=== PATIENT | female | born 1935 | race Caucasian/White ===

== ENCOUNTER 2018-01-01 14:02 | Inpatient (IN) | payer MEDICARE ==
[2018-01-01 15:57] LABS: #Lymphocytes 0.4 thou/uL (1.20-3.40); #Monocytes 0.4 thou/uL (0.11-0.59); #Neutrophils 4.5 thou/uL (1.40-6.50); %Basophils 0.4 % (0.0-1.0); %Eosinophils 0.8 % (0.0-10.0); %Lymphocytes 7.4 % (21.0-51.0); %Monocytes 7.3 % (0.0-10.0); %Neutrophils 84.1 % (42.0-75.0); Hemoglobin 11.3 g/dL (12.0-16.0); Mean Corpuscular HGB CONC 32.4 g/dL (32.0-36.0); Mean Corpuscular Volume 83.2 fL (78.0-98.0); Mean Platelet Volume 8.6 fL (7.4-10.4); Platelet Count 157 thou/uL (130-400); RBC Distribution Width 14.8 % (11.5-14.5); Red Blood Cell (RBC) Count 4.21 mill/uL (4.20-5.40); White Blood Cell (WBC) Count 5.4 thou/uL (4.8-10.8)
[2018-01-01 16:20] LABS: ALT (SGPT) 9 U/L (8-55); AST (SGOT) 16 U/L (5-34); Albumin 3.5 g/dL (3.4-4.8); Alkaline Phosphatase 79 U/L (40-150); Anion Gap 13 mmol/L (10-20); BUN (Urea Nitrogen) 11 mg/dL (9.8-20.1); Bilirubin, Total 1.1 mg/dL (0.2-1.2); CK (CPK) 66 U/L (29-168); Calc. Creatinine Clearance 0 mL/min (70-130); Calcium 8.7 mg/dL (7.8-10.44); Carbon Dioxide 29 mmol/L (23-31); Chloride 103 mmol/L (98-107); Estimated GFR-MDRD 68; Globulin 1.9 g/dL (2.4-3.5); Glucose 122 mg/dL (83-110); Potassium 3.8 mmol/L (3.5-5.1); Protein, Total 5.4 g/dL (6.0-8.3); Sodium 141 mmol/L (136-145)
[2018-01-01 16:22] LABS: CKMB 1.7 ng/mL (0-6.6); Troponin I Less than 0.010 ng/mL (< 0.028)
--- NOTE | 2018-01-01 17:05 | RAD ---
TWO VIEWS RIGHT HIP: Date: 01-01-18 History: Fell while walking to front door. Right hip injury. Shortening of leg. FINDINGS: There is a comminuted intertrochanteric right hip fracture with separation and mild displacement of t he fracture fragments. There is varis angulation of the fracture fragments. There is no dislocation. Osteopenia is present. IMPRESSION: Comminuted angulated mildly displaced intertrochanteric right hip fracture. POS: [facility]
--- NOTE | 2018-01-01 17:07 | RAD ---
PORTABLE AP CHEST RADIOGRAPH: Date: 01-01-18 History: Pre-operative evaluation. Comparison: 07-28-16 FINDINGS: Again noted is severe elevation of the left hemidiaphragm; although, there is a better depth of inspi ration on today's exam. There is atelectasis at the left lung base. Due to the prominent elevated hem idiaphragm, the mediastinal structures are shifted to the right. There are mild chronic lung changes; the right lung is otherwise clear. Pulmonary vasculature is within normal limits. Osteopenia is pres ent. IMPRESSION: 1. Stable marked elevation of the left hemidiaphragm. 2. No acute cardiopulmonary process. POS: [facility]
[2018-01-01] MEDS ORDERED: Fentanyl 100 MCG/2 ML VIAL ONE (18:16)
[2018-01-01] MEDS ORDERED: Ondansetron HCl/PF 4 MG/2 ML Vial ONE (18:19)
--- NOTE | 2018-01-01 18:59 | RAD ---
RIGHT FEMUR TWO VIEWS: History: Fall. FINDINGS: There is an intertrochanteric fracture of the right hip with coxavara deformity. The bones appear dem ineralized. There are arthritic changes of the knee. IMPRESSION: Intertrochanteric fracture of the right hip. POS: [facility]
[2018-01-01 19:10] LABS: Bilirubin Negative (Negative); Blood, Urine Negative (Negative); Clarity CLEAR (Clear); Glucose, Urine (Dipstick) Negative (Negative); Leukocyte Negative (Negative); Nitrite Negative (Negative); Protein, Urine (Dipstick) Negative (Neg-Trace); Specific Gravity, Urine 1.014 (1.002-1.036)
[2018-01-01] MEDS ORDERED: Dextrose 5% in Water 1,000 ML IV PRN (20:43)
[2018-01-01] MEDS ORDERED: Dextrose 50% Abboject 50 ML SYRINGE SLOW IVP PRN (20:43)
[2018-01-01] MEDS ORDERED: traMADol HCl 50 MG TAB PO PRN (22:18)
[2018-01-01] MEDS: traMADol HCl 50 MG TAB PO SCH (22:27)
[2018-01-01] MEDS: Famotidine/PF 20 mg/2ml Vial SLOW IVP SCH (23:14)
[2018-01-01 23:39] VITALS: BMI 32.5
--- NOTE | 2018-01-02 00:10 | HP ---
DATE OF ADMISSION: 01/01/2018 ADMITITNG PHYSICIAN: Oskar Roberto MD CONSULTING PHYSICIAN: 1. Dr. Jose Arias, Orthopedics. 2. Dr. Reyes, Pulmonology. 3. Dr. Barrera, Cardiology. HISTORY OF PRESENT ILLNESS: Ms. Grey is an 82-year-old female with a history of CHF, COPD, chronic hypoxic respiratory failure, hypertension, and chronic bilateral lower extremity edema, who is a pat ient of Dr. Ferrell and Dr. Suero. She was walking to the front door in her house today when her right leg felt weak and she fell onto her right hip. She was transported to [facility] where a right hip intertrochanteric fracture was identified. Dr. Arias was consulted by [facility] ER physician. She denies LOC. She denies any other area of pain. She reports that pain is exacer bated by movement of right leg. She has 2+ pitting edema to her lower extremities. She reports that right lower extremity is always more edematous than left. PAST MEDICAL HISTORY: 1. Congestive heart failure. 2. Chronic obstructive pulmonary disease. 3. Chronic bilateral lower extremity edema. 4. Hypertension. 5. Chronic hypoxic respiratory failure. 6. Pneumonia in 2017. PAST SURGICAL HISTORY: 1. Appendectomy. 2. Cholecystectomy. 3. Hysterectomy. CURRENT MEDICATIONS: 1. Lasix 40 mg daily. 2. Aspirin 81 mg daily. ALLERGIES: FELDENE. LABORATORY STUDIES: CBC: WBC 5.4, RBC 4.31, hemoglobin 11.3, hematocrit 35.0, platelets 157,000. C hemistry: Sodium 141, potassium 3.8, chloride 103, carbon dioxide 29, BUN 11, creatinine 0.80, gluco se 122, calcium 8.7, total bilirubin 1.1, AST 16, ALT 9, alkaline phosphatase 79. Creatine kinase 66 . BNP 315. CK-MB 1.7, troponin less than 0.010. REVIEW OF SYSTEMS: Constitutional: The patient denies fever, chills, recent weight loss, or general ized malaise. HEENT: Denies otorrhea, rhinorrhea, neck pain, or sore throat. Cardiovascular: Dylan es chest pain, syncope, or palpitations. Respiratory/Chest: Denies cough. 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 Reports history of COPD, is a long-term patient of Dr. Suero. Reports use of 2 liters O2 at night. Abdomen: Denies abdominal pain, nausea, vomiting, diarrhea, or constipation. Musculoskeletal: Reports fall. Reports right hip pain. Neurologic: Reports occasional dizziness . Denies focal deficit. Denies seizures. Genitourinary: Denies hematuria or dysuria. Hemo/Lympha tics: Reports taking 81 mg aspirin daily. Denies abnormal bleeding. PHYSICAL EXAMINATION: VITAL SIGNS: Blood pressure 119/59, pulse 55, respirations 21, temperature 98.1, O2 sat 95% on 2 lit ers O2. CONSTITUTIONAL: Elderly female lying in bed, in no acute distress, nontoxic appearing. HEENT: Atraumatic, normocephalic. CARDIOVASCULAR: Regular rate and rhythm. Heart sounds normal. PULMONARY: Bilateral breath sounds clear. No respiratory distress. ABDOMEN: Soft, nontender, nondistended. Pelvis pain with palpation of right hip, right upper thigh. MUSCULOSKELETAL: Cap refill brisk in all extremities. Neurovascular intact in all extremities. SKIN: Warm and dry, normal in color, no rashes noted. ASSESSMENT: 1. Status post ground-level fall. 2. Right intertrochanteric hip fracture. 3. Acute traumatic pain. 4. History of chronic obstructive pulmonary disease and chronic respiratory failure. 5. History of congestive heart failure. PLAN: 1. Admit to surgical floor by [facility]. 2. Consult to Dr. Arias, Orthopedics. 3. Consult Cardiology and Pulmonology as patient's primary providers. 4. Echo ordered by Dr. Arias. Echo was completed at this time. Results are pending. 5. Regular diet, n.p.o. after midnight. 6. IV fluids after midnight. 7. Oral analgesia with IV analgesia for breakthrough pain. 8. Resume home medications as appropriate. 9. PT, OT postoperatively with orthopedic limitations. 10. Case management for discharge planning. Anticipate patient will need inpatient rehabilitation. 11. Pepcid for gastritis prophylaxis. 12. SCDs for DVT prophylaxis. The patient was reviewed with Dr. Roberto who agrees with plan.
[2018-01-02] MEDS: Acetaminophen 500 MG TAB PO SCH ×5 (00:43→22:54)
[2018-01-02] MEDS: Scopolamine 1.5 mg/72 hour Patch TOP SCH (00:43)
--- NOTE | 2018-01-02 01:07 | CON ---
DATE OF CONSULTATION: 01/01/2018 HISTORY OF PRESENT ILLNESS: Ms. Grey is a pleasant 82-year-old female status post fall from a stand today. The patient is complaining of right hip pain, was brought by EMS for evaluation of right hip pain. Pain is currently 8/10. History of a left hip fracture treated nonoperatively. PAST MEDICAL HISTORY: Heart failure, systolic and/or diastolic, COPD with respiratory failure, hypertension, history of phlebitis, and possible DVT 35 years ago. PAST SURGICAL HISTORY: Appendectomy, cholecystectomy, hysterectomy, left hip fracture treated non-operatively. MEDICATIONS: States Lasix 40 mg, aspirin 81 mg. ALLERGIES: FELDENE. SOCIAL HISTORY: The patient lives in [place] farm with her , daughter is Meri Romo, OR nurse. Denies tobacco, alcohol, or drug use. PHYSICAL EXAMINATION: VITAL SIGNS: 119/59, 55, 21 respiratory rate, 95% on 2 liters. GENERAL: Elderly female in no acute distress. EXTREMITIES: Right lower extremity, she has severe edema in the right lower extremity with a palpable 1+ pulse, DP, and PT. The patient has motor intact. She is able to flex and extend her toes, flex and extend her ankle. She has pain with internal and external rotation of her right hip. The patient H&H of 11 and 35, platelets 157. Creatinine 0.08, glucose 122. The patient's radiographs of her right hip show right 3-part intertrochanteric right hip fracture with diffuse osteopenia. IMPRESSION: 1. Right intra-articular hip fracture. 2. History of congestive heart murmur. 3. Pedal edema. 4. History of phlebitis, possible deep venous thrombosis. 5. Chronic obstructive pulmonary disease with respiratory failure. ASSESSMENT AND PLAN: The patient will be made n.p.o. 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 The patient received a cephalomedullary nail from her long nail to protect both her neck as well as her shaft given her diffuse osteopenia. I discussed with the family the risks and benefits of the surgery to include pain, scar, bleeding, infection, damage to vital structures, decreased range of motion or strength, continued pain despite surgical intervention, loss of life or limb. The patient understood these risks and benefits of the surgery. We will await pulmonology and Cardiology recommendations. The patient will be admitted to trauma. We will follow her in-house. Plan will be for surgery tomorrow at noon. AMAURY
[2018-01-02] MEDS: Sodium Chloride 0.9% 1,000 ML IV SCH ×3 (01:28→20:43)
[2018-01-02 04:22] LABS: #Basophils 0.1 thou/uL (0.0-0.2); #Lymphocytes 0.4 thou/uL (1.20-3.40); #Monocytes 0.6 thou/uL (0.11-0.59); #Neutrophils 5.2 thou/uL (1.40-6.50); %Eosinophils 0.1 % (0.0-10.0); %Lymphocytes 7.1 % (21.0-51.0); %Monocytes 8.9 % (0.0-10.0); %Neutrophils 82.9 % (42.0-75.0); Hemoglobin 10.3 g/dL (12.0-16.0); Mean Corpuscular HGB CONC 32.7 g/dL (32.0-36.0); Mean Corpuscular Hemoglobin 27.2 pg (27.0-31.0); Mean Corpuscular Volume 83.1 fL (78.0-98.0); Mean Platelet Volume 8.2 fL (7.4-10.4); Platelet Count 129 thou/uL (130-400); RBC Distribution Width 14.5 % (11.5-14.5); White Blood Cell (WBC) Count 6.2 thou/uL (4.8-10.8)
[2018-01-02 04:32] LABS: Anion Gap 10 mmol/L (10-20); BUN (Urea Nitrogen) 13 mg/dL (9.8-20.1); Calc. Creatinine Clearance 92 mL/min (70-130); Calcium 8.7 mg/dL (7.8-10.44); Carbon Dioxide 31 mmol/L (23-31); Chloride 104 mmol/L (98-107); Estimated GFR-MDRD 80; Glucose 142 mg/dL (83-110); Magnesium 2.1 mg/dL (1.6-2.6); Phosphorus 3.7 mg/dL (2.3-4.7); Potassium 3.9 mmol/L (3.5-5.1); Sodium 141 mmol/L (136-145)
[2018-01-02] MEDS: traMADol HCl 50 MG TAB PO SCH ×4 (06:02→22:55)
[2018-01-02] MEDS ORDERED: Prevnar 13-Val Conj/PF 0.5 ML SYRINGE IM ONE (09:00)
--- NOTE | 2018-01-02 10:20 | ULT ---
BILATERAL LOWER EXTREMITY VENOUS DUPLEX ULTRASOUND INCLUDING COLOR AND SPECTRAL DOPPLER IMAGING: History: 82-year-old female with history of bilateral lower extremity edema, congestive heart failure, FINDINGS: Exam performed from groin to ankle including visualized greater saphenous, common femoral, superficia l femoral, profunda femoral, popliteal, trifurcation and posterior tibial vein regions. There is phasic flow at all levels with normal compressibility and normal augmentation. No intralumin al thrombus. There is a complex fluid collection in the left popliteal fossa region measuring approxi mately 1.2 x 3.4 x 5 cm, evidence for a somewhat complicated popliteal fossa cyst. No intraluminal th rombus. IMPRESSION: No evidence for DVT. Left popliteal fossa has a somewhat complicated appearing cyst. POS: [facility]
[2018-01-02] MEDS: Famotidine/PF 20 mg/2ml Vial SLOW IVP SCH (10:42)
[2018-01-02] MEDS ORDERED: Bupivacaine 0.75% W/DEXTROSE 8.25% 2 ML AMP ONE (10:58)
[2018-01-02] MEDS ORDERED: Ketamine 50 MG/ML VIAL ONE (10:59)
[2018-01-02] MEDS ORDERED: CEFAZOLIN/Water 2 GM/20 ML SYRINGE ONE (11:19)
--- NOTE | 2018-01-02 12:11 | PRG ---
DATE OF SERVICE: 01/02/2018 SUBJECTIVE: Ms. Grey is an 82-year-old woman who normally ambulates using rolling walker. Apparently, the walker got away from her yesterday causing her to fall. She has sustained a closed right hip fracture, which requires repair. Upon questioning, the patient is quite active at home. She usually ambulates well, although ability to climb stairs has been limited now due to arthritic knee disease. She denies any dyspnea with ambulation. She is fairly active with house chores without any dyspnea. OBJECTIVE: VITAL SIGNS: This morning includes blood pressure 154/80, pulse is 60, respiratory rate 16, temperature 98.2 degrees Fahrenheit and current oxygen saturation is 95% on 2 liters by nasal cannula oxygen. HEENT: Reveals pupils equal, round, reactive to light and accommodation. HEART: Reveals regular rate and rhythm. No murmurs or gallops auscultated. CHEST: Clear to auscultation bilaterally. Her breathing is regular and unlabored. ABDOMEN: Soft, nontender and nondistended. EXTREMITIES: There are 2+ radial and pedal pulses bilaterally. She has no ankle edema present. NEUROLOGIC: Reveals no focal deficits present. LABORATORY DATA: Today includes a CBC with 6200 white blood cells, hemoglobin and hematocrit are 10.3 and 31.6 respectively. Platelet count is 129,000. Metabolic profile: Sodium 141, potassium is 3.9, chloride is 104, bicarbonate is 31, BUN is 13, creatinine 0.70, glucose is 142, magnesium 2.1, phosphorus is 3.7. IMPRESSION: Status post ground level fall with closed right hip fracture. PLAN: The patient is hemodynamically stable to proceed with orthopedic surgery for surgical repair of the right hip fracture. Postoperatively, we will initiate physical and occupational therapy. Case workers will initiate plans for possible transfer to inpatient rehabilitation versus swing bed post-discharge. The above findings and plan discussed with the patient and family at bedside. They all indicated understanding of information given. I have answered their questions. AMAURY
[2018-01-02] MEDS ORDERED: Promethazine HCl 25 MG/ML VIAL IM PRN (13:23)
[2018-01-02] MEDS ORDERED: Promethazine HCl 25 MG/ML VIAL SLOW IVP PRN (13:23)
[2018-01-02] MEDS ORDERED: Ondansetron HCl/PF 4 MG/2 ML Vial IVP PRN (13:23)
--- NOTE | 2018-01-02 14:17 | OP ---
DATE OF PROCEDURE: 01/02/2018 PREOPERATIVE DIAGNOSIS: Right 3-part intertrochanteric hip fracture. POSTOPERATIVE DIAGNOSIS: Right 3-part intertrochanteric hip fracture. PROCEDURE PERFORMED: Right intramedullary nailing with a long TFNA. STAFF: Jose Arias M.D. COLOR GRINDER: MERRILL Woodall ANESTHESIA: Mylene and Sree. The patient received a fascia iliac block with spinal. ESTIMATED BLOOD LOSS: 100 mL. TOURNIQUET TIME: None. IMPLANTS: A 14 mm x 440 mm titanium cannulated TFNA, a 110 TFNA screw, and a 5 mm locking screw. ANTIBIOTICS: Ancef 2 grams. COMPLICATIONS: None. HISTORY OF PRESENT ILLNESS: She Que is a pleasant 82-year-old female who presents with congestive heart failure, pulmonary obstructive disease, osteopenia, who had a fall and a right hip fracture. I discussed with the patient the risks and benefits of a right hip intramedullary nailing for cephalo medullary nail for her right intertrochanteric hip fracture. I discussed risks and benefits of surge ry to include pain, scar, bleeding, infection, damage to vital structures, decreased range of motion or strength, nonunion, malunion, loss of life or limb. The patient understood the risks and benefits and elected to proceed. I discussed with the family and the patient the mortality associated the fr acture. I also discussed with the patient would lose a level of function from the house and may need to be transfers only. The patient understood these risks and benefits and would like to proceed PROCEDURE IN DETAIL: Timeout was performed designating the patient's right lower extremity as the o perative site based on sites, consents and markings. After completion of timeout the patient was zoran richy in a fracture table with the bony prominences well padded. She had a little bit of kick up of he r neck at the calcar connected to the head, so I had to place a small stab incision into the anterior aspect to place a fixator to help with compression of that as well as taking up the leg. I took my incision laterally, down to skin through the IT band down, placed my starting point, opened the canal , 16 was followed up and I knew a 14 would be the right size for the nail. There was no reaming requ ired. Measured a 44 mm nail. We passed the nail with reduction of the fracture as best we could. A fter completion of this, we then placed our lateral incision down. We placed our compression screw. We drilled with holding the nail in appropriate position. Findings center position we liked. We dr erickson for a 110 mm compression screw, placed a 10 mm compression screw. We had good overall alignmen t, let off of the traction and ensure compression of the fracture. We then locked the gate down and did 1-1/2 turn to help with compression. We then moved to the patient's distal femur, in the smaller hole I placed a single screw in the proximal segment to not allow to much distal progression, I plac ed a screw through. AP and lateral radiographs, I took final radiographs showing my reduction and my nails. We then washed and we closed with 0, 2-0 and clem. The patient will be back to trauma. She will receive antibiotics for 24 hours. The patient will sta rt DVT prophylaxis with aspirin b.i.d. in house. The [facility] be [facility].
[2018-01-02] MEDS ORDERED: Bupivacaine HCl 0.5%/Epinephrine 1:200,000/PF 30 ml Vial ONE (14:34)
[2018-01-02] MEDS ORDERED: PHENYLEPHRINE-NS 100 MCG/ML 10 ML SYRINGE ONE (15:00)
[2018-01-02] MEDS ORDERED: Ondansetron HCl/PF 4 MG/2 ML Vial ONE (15:00)
[2018-01-02] MEDS ORDERED: ePHEDrine/0.9% NaCl/PF SYRINGE 50 mg/10 ml ONE (15:00)
--- NOTE | 2018-01-02 16:25 | RAD ---
RIGHT HIP 2 VIEWS: Date: 01/02/18 HISTORY: 82-year-old female status post open reduction and internal fixation right hip. FINDINGS: Five portable fluoroscopic spot images are presented for interpretation. Elongated intramedullary toño and compression screw are placed, stabilizing a comminuted intertrochanteric femoral fracture with i mproved position and alignment from the pre-reduction study. IMPRESSION: Compression screw and intramedullary toño stabilizing comminuted intertrochanteric femoral fracture. POS: [facility]
[2018-01-02] MEDS: CEFAZOLIN/Water 2 GM/20 ML SYRINGE SLOW IVP SCH (18:46)
[2018-01-02] MEDS: Aspirin 81 mg Enteric Coated Tablet PO SCH (20:43)
[2018-01-02] MEDS ORDERED: Furosemide 40 MG TAB PO SCH (21:45)
[2018-01-02] MEDS: Famotidine 20 MG TAB PO SCH (22:54)
[2018-01-03] MEDS: CEFAZOLIN/Water 2 GM/20 ML SYRINGE SLOW IVP SCH (03:40)
[2018-01-03] MEDS: Sodium Chloride 0.9% 1,000 ML IV SCH ×2 (04:55→21:03)
[2018-01-03] MEDS: Acetaminophen 500 MG TAB PO SCH ×4 (04:57→23:32)
[2018-01-03] MEDS: traMADol HCl 50 MG TAB PO SCH ×4 (04:58→23:32)
[2018-01-03 07:25] LABS: Hemoglobin 9.3 g/dL (12.0-16.0); Mean Corpuscular HGB CONC 32.5 g/dL (32.0-36.0); Mean Corpuscular Hemoglobin 27.2 pg (27.0-31.0); Mean Corpuscular Volume 83.6 fL (78.0-98.0); Mean Platelet Volume 8.6 fL (7.4-10.4); Platelet Count 106 thou/uL (130-400); RBC Distribution Width 14.8 % (11.5-14.5); Red Blood Cell (RBC) Count 3.41 mill/uL (4.20-5.40); White Blood Cell (WBC) Count 8.3 thou/uL (4.8-10.8)
[2018-01-03] MEDS: Famotidine 20 MG TAB PO SCH ×2 (10:20→21:03)
[2018-01-03] MEDS: Aspirin 81 mg Enteric Coated Tablet PO SCH ×2 (10:20→21:03)
[2018-01-03] MEDS: Furosemide 40 MG TAB PO SCH (10:20)
--- NOTE | 2018-01-03 10:54 | CON ---
DATE OF CONSULTATION: 01/03/2018 CONSULTING PHYSICIAN: Dr. Wagner. REASON FOR CONSULTATION: Management of the patient's respiratory issues. The following encompassed 30 minutes of time, of that time greater than 50% was spent with the patient and/or in the patient's unit in the hospital. HISTORY OF PRESENT ILLNESS: The patient is a pleasant 82-year-old female, who fell and fractured her femur, requiring repair yesterday. She is a patient of Dr. Cho and is currently on a Trilogy ventilator at night. I do not have her office notes with me at this time, but it appears she is usin g a Trilogy ventilator at night. 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 She uses the Trilogy ventilator at night and as needed during the day. She also uses monet pplemental oxygen at night. She has access to albuterol, but does not use it hardly at all. Current ly, she says her breathing is fine after surgery. PAST MEDICAL HISTORY: 1. CHF. 2. 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 PFTs done in the past demonst rated a mixed restrictive/obstructive pulmonary impairment 3. Chronic lower extremity edema. 4. Hypertension. 5. Chronic hypoxic respiratory failure. 6. Pneumonia. PAST SURGICAL HISTORY: 1. Appendectomy. 2. Cholecystectomy. 3. Hysterectomy. 4. Femur repair. MEDICATIONS PRIOR TO ADMISSION: Lasix, vitamin B12, and baby aspirin. SOCIAL HISTORY: Lifelong nonsmoker. Does not consume significant quantities of alcohol. ALLERGIES: FELDENE. REVIEW OF SYSTEMS: Twelve-point review of systems, otherwise, negative. PHYSICAL EXAMINATION: VITAL SIGNS: Temperature 98.2, pulse 85, respiration rate 16, O2 sat 93% on room air, blood pressure 115/55. GENERAL: She is an elderly female who is in no acute distress. HEENT: Pupils react. Sclerae icteric. Oropharynx clear. NECK: No adenopathy or JVD, no bruits. LUNGS: Clear without wheezing or rhonchi. CARDIAC: S1, S2 regular, without murmur. ABDOMEN: Soft, nontender, nondistended. EXTREMITIES: She has a bandage over right upper leg. She has some edema in the right leg distally. LABORATORY AND X-RAY FINDINGS: White blood cell count 8.3, hematocrit 28.5, platelet count 106. Sod ium 141, potassium 3.9, chloride 104, CO2 of 31, BUN 13, creatinine 0.7, glucose 142. Chest x-ray sh ows a chronically elevated left hemidiaphragm. ASSESSMENT: 1. Chronic hypoxic respiratory failure, secondary to mixed restrictive/obstructive pulmonary process . 2. Chronic obstructive pulmonary disease. 3. Recent femur fracture. PLAN: 1. The patient's pulmonary status is currently stable. I will continue her nebulization treatments as needed. She can continue the Trilogy ventilator at night. I would recommend stopping her IV flui ds as quickly as possible given her history of underlying heart failure. I would recommend anticoagu lation with Lovenox for DVT prophylaxis at the earliest time possible given the significant risk for DVT/PE. 2. Her pulmonary status is stable for transfer to rehab. We will be happy to follow her while she i s in the hospital.
--- NOTE | 2018-01-03 11:16 | PRG ---
DATE OF SERVICE: 01/03/2018 SUBJECTIVE: Ms. Grey is an 82-year-old woman with history of chronic congestive heart failure. Th e patient was admitted two days previously following ground level fall sustaining intertrochanteric r ight hip fracture. The patient is postoperative day #1, status post IM nailing to the fracture. Thi s morning, she reports adequate pain control. She denies any dyspnea, syncope or chest pain. OBJECTIVE: VITAL SIGNS: Includes blood pressure 111/55, pulse 65, respiratory rate 16, temperature 98.2 degrees Fahrenheit, oxygen saturation is 93% on room air. HEENT: Reveals normocephalic and atraumatic. Pupils are equal, round, and reactive to light and acc ommodation. NOSE: She has no jugular venous distention noted. HEART: Reveals regular rate and rhythm, no murmurs or gallops auscultated. LUNGS: Clear to auscultation bilaterally. Her breathing is regular and unlabored. ABDOMEN: Soft, nontender, nondistended. EXTREMITIES: Reveals 2+ radial and pedal pulses bilaterally. No ankle edema is present. NEUROLOGIC: Reveals no focal deficits present. PERTINENT LABORATORY DATA: Today include CBC with 8300 white blood cells, hemoglobin and hematocrit are 9.3 and 28.5 respectively. Platelet count is 106,000. Metabolic profile: Sodium 141, potassium 3.9, chloride is 104, bicarbonate is 31, BUN 13, creatinine 0.70, glucose 142. Magnesium is 2.1, an d phosphorus is 3.7. IMPRESSION: Postoperative day #1, status post IM nailing to right intertrochanteric femur fracture. The patient is hemodynamically stable. PLAN: A Seals catheter will be discontinued. Physical and occupational therapy to increase activity as tolerated. The patient has been evaluated by PM&R for possible inpatient rehabilitation post-dis charge. Above findings and plan discussed with the patient who indicates understanding of the information giv en. I have answered her questions.
[2018-01-03] MEDS ORDERED: Furosemide 40 MG/4 ML VIAL SLOW IVP SCH (17:30)
[2018-01-03] MEDS ORDERED: Heparin 5,000 UNITS/ML VIAL SC SCH (21:00)
--- NOTE | 2018-01-03 21:30 | CON ---
DATE OF CONSULT: 01/03/18 HISTORY OF PRESENT ILLNESS: The patient is an 82-year-old woman who presents for evaluation after undergoing hip surgery. The patient has a previous history of coronary artery disease. She underwent a cardiac catheterization in 2007. She was found to have mild CAD. She had a 20% left main lesion. The patient also has a history of pulmonary hypertension. She has a history of chronic restrictive lung disease. The patient was admitted with a hip fracture and underwent surgery without apparent complications. The patient denies having any chest discomfort. She reports having dyspnea with minimal exertion. PAST MEDICAL HISTORY: 1. Congestive heart failure. 2. Coronary artery disease. 3. Restrictive lung disease. 4. Hypertension. PAST SURGICAL HISTORY: Appendectomy, hysterectomy, femur surgery, cholecystectomy. MEDICATIONS: Lasix and aspirin. SOCIAL HISTORY: Nonsmoker. ALLERGIES: FELDENE. REVIEW OF SYSTEMS: Ten-point system otherwise unremarkable. PHYSICAL EXAMINATION: GENERAL: An elderly woman in no acute distress with a blood pressure of 100/55. NECK: Showed jugular venous distention to the jaw. LUNGS: Coarse breath sounds bilateral. HEART: Regular rate and rhythm, normal S1, S2, I/ systolic murmur. ABDOMEN: Nondistended. EXTREMITIES: Showed moderate bilateral edema. NEUROLOGIC: Nonfocal. VASCULAR: Radial pulses are 2+. LABORATORY: Sodium 141, potassium 3.9, chloride 104, bicarbonate 13, creatinine 0.7, glucose 142. Troponin less than 0.01. IMPRESSION: 1. Status post hip surgery. 2. Restrictive lung disease. 3. History of congestive heart failure. 4. History of mild coronary disease. 5. Hypertension. This patient has a history of pulmonary hypertension from a cardiac standpoint, we will recheck her echocardiogram. We will follow this patient with you through her hospitalization. CC: Dr. Kristy REBOLLEDO
[2018-01-04 05:01] LABS: Anion Gap 11 mmol/L (10-20); BUN (Urea Nitrogen) 22 mg/dL (9.8-20.1); Calc. Creatinine Clearance 78 mL/min (70-130); Calcium 8.6 mg/dL (7.8-10.44); Carbon Dioxide 29 mmol/L (23-31); Chloride 102 mmol/L (98-107); Estimated GFR-MDRD 66; Glucose 126 mg/dL (83-110); Magnesium 1.9 mg/dL (1.6-2.6); Phosphorus 3.2 mg/dL (2.3-4.7); Potassium 3.8 mmol/L (3.5-5.1); Sodium 138 mmol/L (136-145)
[2018-01-04] MEDS: traMADol HCl 50 MG TAB PO SCH ×4 (05:45→23:00)
[2018-01-04] MEDS: Acetaminophen 500 MG TAB PO SCH ×4 (05:46→22:59)
--- NOTE | 2018-01-04 08:47 | PRG ---
DATE OF SERVICE: 01/04/2018 The patient is doing well, had no acute complaints. PHYSICAL EXAMINATION: VITAL SIGNS: Temperature 99.0, pulse 94, blood pressure 94/52. HEENT: Unremarkable. NECK: No JVD. LUNGS: Clear, distant breath sounds. CARDIAC: S1 and S2 regular. ABDOMEN: Soft. EXTREMITIES: No edema. LABORATORY DATA: Sodium 138, potassium 3.8, BUN 22, creatinine 0.8, glucose 126. ASSESSMENT: Chronic respiratory failure secondary to restrictive lung disease and probably some comp onent of obstructive disease. PLAN: She is doing well on the Trilogy ventilator at night. Continue nebs intermittently. She is c lear for discharge to rehab at any time.
[2018-01-04] MEDS: Furosemide 40 MG TAB PO SCH (09:24)
[2018-01-04] MEDS: Aspirin 81 mg Enteric Coated Tablet PO SCH ×2 (09:24→20:28)
[2018-01-04] MEDS: Famotidine 20 MG TAB PO SCH ×2 (09:24→20:28)
[2018-01-04] MEDS ORDERED: Enoxaparin Sodium 40 MG/0.4 ML SYRINGE SC SCH ×2 (10:00)
--- NOTE | 2018-01-04 10:48 | PRG ---
DATE OF SERVICE: 01/04/2018 SUBJECTIVE: Ms. Grey is an 82-year-old woman who is 3 days status post ground level fall where she sustained hip fracture. Patient is postoperative day #2 today status post IM nailing of right inter trochanteric hip fracture. The patient is awake and alert today, reporting adequate pain control. She is tolerating a general diet, having normal bowel and urinary function. OBJECTIVE: VITAL SIGNS: This morning includes blood pressure 102/57, pulse 72, respiratory rate 16, maximum tem perature in the last 24 hours is 98 degrees Fahrenheit and oxygen saturation is 92% on room air. HEENT: Reveals normocephalic and atraumatic. Pupils are equal, round, and reactive to light and acc ommodation. Extraocular muscles are intact bilaterally. No sclerae icterus is present. HEART: Reveals regular rate and rhythm, no murmurs or gallops auscultated. LUNGS: Clear to auscultation bilaterally. Her breathing is regular and unlabored. ABDOMEN: Soft, nontender, nondistended. EXTREMITIES: Reveals 2+ radial and pedal pulses bilaterally. The patient has no ankle edema present . NEUROLOGIC: Examination reveals no focal deficits present. LABORATORY DATA: Pertinent laboratory findings today include metabolic profile; sodium 138, potassiu m 3.8, chloride is 102, bicarbonate is 29, BUN is 22, creatinine is 0.82, glucose is 126, magnesium 1 .9, phosphorus is 3.2. IMPRESSION: Postoperative day #2, status post IM nailing, right intertrochanteric femoral fracture. The patient is otherwise hemodynamically stable. PLAN: Increase activity per physical and occupational therapy. The patient has been evaluated by PM &R for possible inpatient rehabilitation post-discharge. We will discontinue Seals catheter at this time. Above findings and plan discussed with the patient who indicates understanding of information given. I have answered their questions.
[2018-01-04] MEDS: Senokot 8.6 MG TAB PO SCH (20:28)
[2018-01-04] MEDS: Scopolamine 1.5 mg/72 hour Patch TOP SCH (23:00)
[2018-01-05] MEDS: traMADol HCl 50 MG TAB PO SCH ×2 (06:12→11:57)
[2018-01-05] MEDS: Acetaminophen 500 MG TAB PO SCH ×2 (06:12→11:58)
--- NOTE | 2018-01-05 08:15 | PRG ---
DATE OF SERVICE: 01/05/2018 SUBJECTIVE: The patient is doing well this morning. She says she is ready for discharge. OBJECTIVE: VITAL SIGNS: Temperature is 98.7, pulse 75, respirations 17, O2 sat 91% on 2 liters, blood pressure 113/58. HEENT: Unremarkable. NECK: No JVD. CHEST: Clear. CARDIAC: S1 and S2 regular. ABDOMEN: Soft and nontender. EXTREMITIES: No edema. ASSESSMENT: Chronic respiratory failure secondary to restrictive lung disease and probably some comp onent of obstructive lung disease. PLAN: She will continue Trilogy ventilation at night as she does at home. She is ready for discharg e at any time.
[2018-01-05] MEDS ORDERED: Enoxaparin Sodium 40 MG/0.4 ML SYRINGE SC SCH (09:00)
[2018-01-05] MEDS ORDERED: Polyethylene Glycol 3350 17 GM Packet PO SCH (09:00)
[2018-01-05] MEDS: Senokot 8.6 MG TAB PO SCH (09:38)
[2018-01-05] MEDS: Furosemide 40 MG TAB PO SCH (09:38)
[2018-01-05] MEDS: Famotidine 20 MG TAB PO SCH (09:38)
[2018-01-05] MEDS: Aspirin 81 mg Enteric Coated Tablet PO SCH (09:38)
[2018-01-05 11:42] VITALS: BP 116/68; TEMP 98.4
--- NOTE | 2018-01-06 05:23 | DIS ---
DATE OF ADMISSION: 01/01/2018 DATE OF DISCHARGE: 01/05/2018 ADMISSION DIAGNOSES: 1. Status post ground level fall. 2. Right intertrochanteric hip fracture. 3. Acute traumatic pain. 4. History of chronic obstructive pulmonary disease and chronic hypoxic respiratory failure on home night O2 two liters per minute. 5. History of congestive heart failure. 6. History of hypertension. DISCHARGE DIAGNOSES: 1. Status post ground level fall. 2. Right intertrochanteric hip fracture. 3. Acute traumatic pain. 4. History of chronic obstructive pulmonary disease and chronic hypoxic respiratory failure on home night O2 two liters per minute. 5. History of congestive heart failure. 6. History of hypertension. CONSULTANTS: 1. Dr. Ferrell, cardiology. 2. Dr. Arias, orthopedic surgery. PROCEDURES: On 01/02/2018 right IM nail with long TFNA with Dr. Arias from orthopedic surgery. HOSPITAL COURSE: This is an 82-year-old female who presented to [facility] status post ground lev el fall. She was evaluated and found to have a right intertrochanteric hip fracture. Orthopedic Keke etelvina was notified and Trauma Services was asked to admit. Patient underwent operative intervention t o her hip on 01/02/2018. She was seen and evaluated by Pulmonary and Critical Care Medicine on 01/03. Postoperatively, the patient did well. She received gentle fluid diuresis per Cardiology rec ommendations. She remained hemodynamically stable throughout the duration of her hospitalization. S he worked with physical therapy and occupational therapy. She is tolerating a general diet. Pain wa s controlled via p.o. analgesics. She was accepted to a long-term facility and medically stabl e for discharge on 01/05/2018. DISCHARGE DISPOSITION: [facility] facility. DISCHARGE CONDITION: Fair. PHYSICAL EXAMINATION: VITAL SIGNS: Temperature 98.7, pulse 75, respirations 18, O2 sat 91%-93% on 2 liters nasal cannula, blood pressure 113/58. GENERAL: Elderly appearing female in no acute distress, resting in bed. PULMONARY: Normal work of breathing, symmetric rise. CARDIOVASCULAR: Regular rate and rhythm. GASTROINTESTINAL: Abdomen is soft, nontender, nondistended. MUSCULOSKELETAL: Moves all extremities x4. NEUROLOGIC: No focal deficit is noted. DISCHARGE INSTRUCTIONS: Discharge instructions were provided to the patient in the accepting facilit y. She should maintain hip precautions. Oxygen should be weaned to patient's baseline as able. She should keep her wound clean and dry. She should continue PT and OT. General diet as tolerated. FOLLOWUP APPOINTMENTS: Patient should follow up with Pulmonary Medicine after discharge from long-term. She should also follow up with Cardiology after discharge from long-term. She is to follow up with Orthopedic Surgery in 10-14 days for wound check and removal of sutures/clem. She is to follow up with her primary care provider p.r.n. She does not need to follow up formally with Dr. Wagner or Trauma Services but may call our office with any questions. DISCHARGE MEDICATIONS: Patient was discharged on medications as documented in the electronic medical record. A list of which was provided to the accepting facility. This is merely a summary of the julien jabari's hospitalization. For more in depth information, please see her medical record in its entiret y.
== END 2018-01-05 12:55 | DRG 481 ==
LOC: ERS 14:02 → SURG B 20:28
PROVIDERS: ADMIT Orthopaedic Surgery; ATTEND Orthopaedic Surgery
PROC: 0QS606Z Reposition Right Upper Femur with Intramedullary Internal Fixation Device, Open Approach (ICD-10-PCS; principal; 2018-01-02)
DX: S72.141A Displaced intertrochanteric fracture of right femur, initial encounter for closed fracture (principal); J96.11 Chronic respiratory failure with hypoxia; W10.8XXA Fall (on) (from) other stairs and steps, initial encounter; Y92.009 Unspecified place in unspecified non-institutional (private) residence as the place of occurrence of the external cause; I50.9 Heart failure, unspecified; J44.9 Chronic obstructive pulmonary disease, unspecified; Z79.82 Long term (current) use of aspirin; Z87.01 Personal history of pneumonia (recurrent); Z90.49 Acquired absence of other specified parts of digestive tract
CPT/HCPCS: 36415; 51702; 71045; 76001; 80048; 80053; 81003; 82533; 82550; 82553; 83735; 83880; 84100; 84484; 85025; 85027; 93005; 93306; 93970; 94640; 94760; 96374; 96375; C1713; C1769; G0390; G8978-GP-CL; G8979-GP-CJ; G8987-GO-CM; G8988-GO-CK; J0670; J1650; J1940; J2270; J2405; J3010; J3490; J7620; S0028

== ENCOUNTER 2019-05-11 19:59 | Inpatient (IN) | payer MEDICARE ==
[2019-05-11] MEDS ORDERED: Ondansetron PF 4 MG/2 ML Vial IVP PRN (23:06)
[2019-05-11] MEDS ORDERED: Acetaminophen 650 MG Suppository PR PRN (23:06)
[2019-05-11] MEDS ORDERED: Ondansetron ODT 4 MG TAB PO PRN (23:06)
[2019-05-11] MEDS ORDERED: Acetaminophen 325 MG TAB PO PRN (23:06)
[2019-05-11] MEDS ORDERED: Benzonatate 100 MG CAP PO PRN (23:14)
[2019-05-12 00:36] VITALS: BMI 31.9
--- NOTE | 2019-05-12 00:48 | HP ---
TIME OF ASSESSMENT: 2199. CHIEF COMPLAINT: Fever and cough. HISTORY OF PRESENT ILLNESS: Ms. Grey is a pleasant 84-year-old woman, who states she has been feeling unwell for the last 4 to 5 days. She states she initially developed laryngitis and lost her voice and developed some occasional cough. She states the cough has persisted, but has not worsened and has become productive for green sputum for the last 3 days. She also developed a fever yesterday and had a temperature of 100.1 at home. She was prompted by her family to come in to the emergency department today and initially presented to [facility]. There, she was noted to have a low-grade temp of 99.6. She underwent laboratory studies that demonstrated a mildly elevated white count of 11.5. Neutrophils were 80.3%. She had a normal lactic acid of 2. The patient had a chest x-ray done which demonstrated chronic changes, felt to be a little bit different from prior study in May 2018. A CT of the chest was done after that to further assess for pneumonia. The patient was found to have chronic elevation of the left hemidiaphragm with increased patchy infiltrative changes involving the right lower lobe posteriorly. Also present was a small pleural effusion. There was compressive atelectasis of the left lower lobe with a possible acute infiltrate there as well. There was enlargement of the pulmonary artery suggestive of pulmonary arterial hypertension. The patient was started on IV antibiotics with cefepime and vancomycin. Of note, patient has a known history of CHF with chronic lower extremity swelling. She states she normally sees Dr. Suero for management of her CHF and chronic shortness of breath. She uses a BiPAP at night when she sleeps or when she is lying flat. The patient states she is generally active and able to go grocery shopping and active around her home. PAST MEDICAL HISTORY: 1. CHF. 2. Hypertension. PAST SURGICAL HISTORY: 1. Left-sided partial lobectomy. 2. Appendectomy. 3. Cholecystectomy. 4. Total hysterectomy. SOCIAL HISTORY: The patient denies any tobacco use, alcohol consumption, or illicit drug use. ALLERGIES: 1. CIPRO. 2. FELDENE. 3. PIROXICAM. CURRENT MEDICATIONS: 1. Aspirin. 2. Lasix. 3. Cyanocobalamin. PHYSICAL EXAMINATION: GENERAL: The patient appears well developed, well nourished, is in no acute distress. VITAL SIGNS: Temperature 99.4, pulse 68, blood pressure 125/78, respirations 24 , O2 saturation 94% on room air. HEENT: Normocephalic and atraumatic. Pupils are equal, round, and reactive to light. Sclerae without icterus. Oropharynx is clear. NECK: Supple. LUNGS: With diminished breath sounds at the bilateral bases. No crackles. No wheezes. CARDIAC: Regular rate and rhythm. ABDOMEN: Soft, nontender, nondistended. Normoactive bowel sounds present. EXTREMITIES: No lower leg swelling or edema. NEUROLOGIC: Alert and oriented x3. SKIN: Without rash or jaundice. INVESTIGATIONS: As mentioned above in HPI. IMPRESSION: Ms. Grey is a very pleasant 84-year-old woman, who has felt generally unwell for the last 3 to 4 days with a cough that has become productive for purulent sputum and fever for 2 days. She has been found to have evidence of pneumonia on CT imaging and therefore started on IV antibiotics. She has a known history of CHF and normally follows with Dr. Suero. She also takes Lasix 40 mg daily. The patient states that her lower extremity edema is stable. She did have her BNP checked and it was elevated at 542.8. The patient also had a urinalysis done showing 30 of protein, trace of ketones, small bilirubin, trace leukocyte esterase, 1+ bacteria, otherwise negative. She is being admitted for pneumonia. PLAN: 1. Continue IV antibiotics. 2. Sputum culture requested. 3. Repeat lactic acid with morning labs. 4. Continue DuoNebs. 5. CPAP/BiPAP at bedtime as per patient's home settings. 6. Home O2 eval would likely be beneficial as patient's family think she requires oxygen throughout the day as well, to be decided by day team. Unsure if necessary as patient is already on O2 QHS at home. 7. Continue Lasix. 8. Consult placed for Pulmonary/Dr. Suero. 9. Gastrointestinal prophylaxis with famotidine 20 mg BID. 10. Urine culture pending. 11. PT/OT consultation placed. 12. Respiratory viral panel requested. 13. Code status full. Surrogate decision maker is her , Shahab Grey. The patient's case discussed with attending who agrees with plan of care as described above. Job ID: [id number] [facility]
[2019-05-12 05:28] LABS: #Lymphocytes 0.5 thou/uL (1.20-3.40); #Monocytes 0.8 thou/uL (0.11-0.59); #Neutrophils 6.4 thou/uL (1.40-6.50); %Basophils 0.2 % (0.0-1.0); %Eosinophils 0.2 % (0.0-10.0); %Lymphocytes 6.4 % (21.0-51.0); %Monocytes 10.2 % (0.0-10.0); Hemoglobin 10.4 g/dL (12.0-16.0); Mean Corpuscular Hemoglobin 25.9 pg (27.0-31.0); Mean Corpuscular Volume 80.9 fL (78.0-98.0); Mean Platelet Volume 10.7 fL (7.4-10.4); Platelet Count 127 thou/uL (130-400); Red Blood Cell (RBC) Count 4.01 mill/uL (4.20-5.40); White Blood Cell (WBC) Count 7.8 thou/uL (4.8-10.8)
[2019-05-12] MEDS: Cefepime 1 GM in Sodium Chloride 0.9% 100 ML IVPB SCH ×2 (05:30→18:10)
[2019-05-12 05:48] LABS: Anion Gap 9 mmol/L (10-20); BUN (Urea Nitrogen) 14 mg/dL (9.8-20.1); Calc. Creatinine Clearance 87 mL/min (70-130); Calcium 8.6 mg/dL (7.8-10.44); Carbon Dioxide 32 mmol/L (23-31); Chloride 102 mmol/L (98-107); Estimated GFR-MDRD 77; Glucose 128 mg/dL (83-110); Potassium 3.6 mmol/L (3.5-5.1); Sodium 139 mmol/L (136-145)
[2019-05-12] MEDS: Famotidine/PF 20 mg/2ml Vial SLOW IVP SCH ×2 (08:48→21:21)
[2019-05-12] MEDS: Furosemide 40 MG TAB PO SCH (08:49)
--- NOTE | 2019-05-12 13:47 | PDOC.HOSPP ---
- Subjective Encounter Date: 05/12/19 Encounter Time: 07:20 Subjective: Pt seen for followup re: pneumonia. feels better. No fevers or chills. - Objective Vital Signs & Weight: Vital Signs (12 hours) Temp Pulse Resp BP Pulse Ox 05/12/19 11:57 98.6 F 73 18 138/65 91 L 05/12/19 08:44 98 F 70 16 132/77 95 05/12/19 08:15 63 16 05/12/19 04:00 98.7 F 71 21 H 121/60 99 Weight Weight 213 lb 6.519 oz I&O: 05/11/19 05/12/19 05/13/19 06:59 06:59 06:59 Intake Total 50 Output Total 400 Balance -350 Result Diagrams: 05/13/19 09:18 05/13/19 09:18 Additional Labs: Labs and MARs reviewed by me. Hospitalist ROS - Medication Medications: Active Medications Generic Name Dose Route Start Last Admin Trade Name Freq PRN Reason Stop Dose Admin Albuterol/Ipratropium 3 ml 05/12/19 01:00 05/12/19 08:15 Duoneb NEB 3 ml [id number] KARY Administration Famotidine 20 mg 05/12/19 09:00 05/12/19 08:48 Pepcid SLOW IVP Not Given Q12HR KARY Furosemide 40 mg 05/12/19 09:00 05/12/19 08:49 Lasix PO 40 mg DAILY KARY Administration Cefepime HCl 1 gm/ Sodium 100 mls @ 200 mls/hr 05/12/19 05:00 05/12/19 05:30 Chloride IVPB 100 mls 0500,1700 KARY Administration Sodium Chloride 10 ml 05/11/19 23:06 05/12/19 06:33 Flush - Normal Saline IVF 10 ml Q12HR PRN Administration Saline Flush Hosp A/P (1) Pneumonia Code(s): J18.9 - PNEUMONIA, UNSPECIFIED ORGANISM Status: Acute (2) GERD (gastroesophageal reflux disease) Code(s): K21.9 - GASTRO-ESOPHAGEAL REFLUX DISEASE WITHOUT ESOPHAGITIS Status: Chronic (3) HTN (hypertension) Code(s): I10 - ESSENTIAL (PRIMARY) HYPERTENSION Status: Chronic (4) Obesity (BMI 30.0-34.9) Code(s): E66.9 - OBESITY, UNSPECIFIED Status: Chronic - Plan plan discussed w/ family, continue antibiotics, out of bed/ambulate Pt clinically improving. Monitor vital signs, titrate antihypertensives as needed. GERD stable. Pt using BiPAP while sleeping.
--- NOTE | 2019-05-12 14:16 | PDOC.HOSPP ---
- Subjective Encounter Date: 05/12/19 Encounter Time: 07:40 Subjective: Pt seen for followup re: pneumonia. States she feels better. - Objective Vital Signs & Weight: Vital Signs (12 hours) Temp Pulse Resp BP Pulse Ox 05/12/19 13:57 73 16 05/12/19 11:57 98.6 F 73 18 138/65 91 L 05/12/19 08:44 98 F 70 16 132/77 95 05/12/19 08:15 63 16 05/12/19 04:00 98.7 F 71 21 H 121/60 99 Weight Weight 213 lb 6.519 oz I&O: 05/11/19 05/12/19 05/13/19 06:59 06:59 06:59 Intake Total 50 Output Total 400 Balance -350 Result Diagrams: 05/12/19 04:51 05/12/19 04:51 Additional Labs: labs and MARs reviewed by me EKG Reviewed by me: Yes (Tele: NSR) Hospitalist ROS - Review of Systems Constitutional: reports: weakness. denies: fever, chills, sweats, malaise Respiratory: reports: cough, SOB with excertion, sputum. denies: dry, shortness of breath, hemoptysis, pleuritic pain, wheezing Cardiovascular: denies: chest pain, palpitations, orthopnea, paroxysmal noc. dyspnea, edema, light headedness Gastrointestinal: denies: nausea, vomiting, abdominal pain, diarrhea, constipation, melena, hematochezia Genitourinary: denies: dysuria, frequency, incontinence, hematuria, retention - Medication Medications: Active Medications Generic Name Dose Route Start Last Admin Trade Name Denq PRN Reason Stop Dose Admin Albuterol/Ipratropium 3 ml 05/12/19 01:00 05/12/19 13:57 Duoneb NEB 3 ml [id number] KARY Administration Famotidine 20 mg 05/12/19 09:00 05/12/19 08:48 Pepcid SLOW IVP Not Given Q12HR KARY Furosemide 40 mg 05/12/19 09:00 05/12/19 08:49 Lasix PO 40 mg DAILY KARY Administration Cefepime HCl 1 gm/ Sodium 100 mls @ 200 mls/hr 05/12/19 05:00 05/12/19 05:30 Chloride IVPB 100 mls 0500,1700 KARY Administration Sodium Chloride 10 ml 05/11/19 23:06 05/12/19 06:33 Flush - Normal Saline IVF 10 ml Q12HR PRN Administration Saline Flush - Exam General - other findings: Obese Eye: anicteric sclera ENT: normocephalic atraumatic, moist mucosa Neck: supple, no thyromegaly Heart: RRR, no rubs Respiratory: CTAB Gastrointestinal: soft, non-tender Extremities: no clubbing Psychiatric: normal affect, normal behavior Hosp A/P (1) CAP (community acquired pneumonia) Code(s): J18.9 - PNEUMONIA, UNSPECIFIED ORGANISM Status: Acute (2) GERD (gastroesophageal reflux disease) Code(s): K21.9 - GASTRO-ESOPHAGEAL REFLUX DISEASE WITHOUT ESOPHAGITIS Status: Chronic (3) HTN (hypertension) Code(s): I10 - ESSENTIAL (PRIMARY) HYPERTENSION Status: Chronic (4) Obesity (BMI 30.0-34.9) Code(s): E66.9 - OBESITY, UNSPECIFIED Status: Chronic (5) Pulmonary hypertension Code(s): I27.2 - OTHER SECONDARY PULMONARY HYPERTENSION * DO NOT USE * Status : Chronic (6) BiPAP (biphasic positive airway pressure) dependence Code(s): Z99.89 - DEPENDENCE ON OTHER ENABLING MACHINES AND DEVICES Status: Chronic - Plan continue antibiotics, PT/OT, speech therapy, respiratory therapy, out of bed/ ambulate Continue IV cefepime and vancomycin. HTN controlled. Swallow eval. Continue furosemide. Continue aspirin.
[2019-05-12] MEDS ORDERED: Cyanocobalamin 1000 MCG/ML VIAL SC SCH (14:30)
[2019-05-12] MEDS ORDERED: Vancomycin 1.5 GRAM/300 ML BAG 1.5 GM in Premix Bag 1 BAG IVPB SCH (15:00)
--- NOTE | 2019-05-13 02:12 | CON ---
DATE OF CONSULTATION: 05/12/2019 SERVICE: Pulmonary medicine. REASON FOR CONSULTATION: Community acquired pneumonia. HISTORY OF PRESENT ILLNESS: The patient is a very pleasant 84-year-old white female with past medical history significant for chronic hypercapnic respiratory failure secondary to nonfunctioning left hemidiaphragm. She is on a home ventilator for this. She really does not have any underlying lung disease. That being said, she had upper respiratory tract infection and laryngitis starting about a week ago. She started having some low-grade temperatures. It was not until Tuesday of last week when she started having increasing dyspnea on exertion, cough, and bringing up green phlegm. Ultimately, she presented to a Urgent Care Clinic on Tuesday. She was given nebulized medication, but ultimately just simply presented to the emergency department. She got put on broad-spectrum antibiotics. Sputum culture was obtained. She denies any current fevers, chills, nausea, vomiting, or diarrhea. Overnight, she got put on antibiotics and she has had a significant improvement in her symptoms. She actually feels 50% back to baseline already. She has been able to walk the hallways with 2 L nasal cannula without much difficulty. PAST MEDICAL HISTORY: 1. Chronic systolic and diastolic heart failure. 2. Restrictive lung disease. 3. Paralyzed left hemidiaphragm. 4. Hypertension. 5. Chronic hypoxic and hypercapnic respiratory failure. PAST SURGICAL HISTORY: 1. Appendectomy. 2. Cholecystectomy. 3. Hysterectomy. 4. Right hip fracture status post repair. SOCIAL HISTORY: She lives in [place] at home. She cares for family members. She has no exposure to chemicals, dust, asbestos, or tuberculosis currently. She denies any alcohol, tobacco, or illicit drug use. FAMILY HISTORY: Noncontributory. ALLERGIES: FELDENE. MEDICATIONS: List of her inpatient medications was reviewed. No specific updates were made at this time. REVIEW OF SYSTEMS: General, head, ears, eyes, nose, throat, cardiovascular, respiratory, GI, , musculoskeletal, neurologic, and skin are negative except as mentioned in the HPI. PHYSICAL EXAMINATION: VITAL SIGNS: Afebrile, pulse 85, blood pressure 144/66, respirations 16, saturation 98% on 1 L nasal cannula. GENERAL: The patient is awake and alert, in no apparent distress. LUNGS: Wonderful air entry on the right with rhonchi present. Decreased air entry on the left. There is no significantly prolonged expiratory phase. I do not appreciate any wheezing. HEART: Normal rate, regular. ABDOMEN: Soft, nontender, nondistended. Bowel sounds are positive. MUSCULOSKELETAL: No cyanosis or clubbing. No pitting in the bilateral lower extremities. NEUROLOGICAL: Grossly nonfocal. LABORATORY DATA: WBC 7.8 and downtrending, hemoglobin 10.4, platelets 127,000. PH 7.4, pCO2 of 50. Creatinine 0.72, bicarb 32 and gently up-trending, potassium 3.6 and stable. Basic metabolic profile is otherwise unremarkable. Liver function studies are unremarkable. BNP 542, which is essentially and historic low. Troponin is negative x1. Lactate is unremarkable. IMAGING STUDIES: CT of the chest demonstrates right lower lobe infiltrate. She also has atelectasis to left lower lobe. She has an elevated left hemidiaphragm. Compared to 2018, the diaphragm on the left is about stable. ASSESSMENT: 1. Acute on chronic hypoxic and hypercapnic respiratory failure. 2. Community-acquired pneumonia. 3. Paralyzed left hemidiaphragm. DISCUSSION AND PLAN: The patient will continue using her home Trilogy ventilator, this is not being used for acute respiratory failure, but rather chronic respiratory failure. Antibiotics are missing, atypical, but the patient is already feeling better, so this can be continued. We will follow up on the results of the sputum culture. When the patient feels safe for discharge, she can be considered for transition out of the hospital. Pulmonary Critical Care will follow along while she remains in-house. Ultimately, on discharge from the hospital, she will require repeat chest x-ray in 4 to 6 weeks to verify the infiltrate in the right lower lobe is resolved. 70 minutes have been devoted to this patient in various activities. I personally reviewed all imaging studies and laboratory data noted within this document. For fifty percent of this time, I was interacting with the patient at the bedside or coordinating care with the care team. For the remainder of the time I was immediately available to the patient in the hospital unit. Job ID: [id number] MTDD
[2019-05-13] MEDS: Cefepime 1 GM in Sodium Chloride 0.9% 100 ML IVPB SCH ×2 (04:54→18:14)
[2019-05-13] MEDS: Aspirin 81 mg Enteric Coated Tablet PO SCH (09:20)
[2019-05-13] MEDS: Furosemide 40 MG TAB PO SCH (09:20)
[2019-05-13] MEDS: Famotidine/PF 20 mg/2ml Vial SLOW IVP SCH ×2 (09:20→22:55)
[2019-05-13 09:36] LABS: #Lymphocytes 0.6 thou/uL (1.20-3.40); #Monocytes 0.6 thou/uL (0.11-0.59); #Neutrophils 5.5 thou/uL (1.40-6.50); %Basophils 0.1 % (0.0-1.0); %Eosinophils 0.4 % (0.0-10.0); %Lymphocytes 8.6 % (21.0-51.0); %Monocytes 9.1 % (0.0-10.0); %Neutrophils 81.8 % (42.0-75.0); Hemoglobin 11.1 g/dL (12.0-16.0); Mean Corpuscular HGB CONC 31.3 g/dL (32.0-36.0); Mean Corpuscular Hemoglobin 25.9 pg (27.0-31.0); Mean Corpuscular Volume 82.6 fL (78.0-98.0); Platelet Count 158 thou/uL (130-400); Red Blood Cell (RBC) Count 4.28 mill/uL (4.20-5.40); White Blood Cell (WBC) Count 6.7 thou/uL (4.8-10.8)
[2019-05-13 09:48] LABS: Anion Gap 11 mmol/L (10-20); BUN (Urea Nitrogen) 13 mg/dL (9.8-20.1); Calc. Creatinine Clearance 79 mL/min (70-130); Calcium 9.1 mg/dL (7.8-10.44); Carbon Dioxide 30 mmol/L (23-31); Chloride 102 mmol/L (98-107); Estimated GFR-MDRD 77; Glucose 145 mg/dL (83-110); Potassium 3.7 mmol/L (3.5-5.1); Sodium 139 mmol/L (136-145)
--- NOTE | 2019-05-13 15:47 | PDOC.HOSPP ---
- Subjective Encounter Date: 05/13/19 Encounter Time: 07:20 Subjective: Pt seen for followup re: pneumonia. Cough+, also has sputum. - Objective Vital Signs & Weight: Vital Signs (12 hours) Temp Pulse Pulse Pulse Resp BP BP 05/13/19 15:17 97.6 F 87 18 05/13/19 14:16 78 16 05/13/19 11:25 98.1 F 77 18 05/13/19 10:55 77 87 117/55 L 141/67 H 05/13/19 09:17 97.8 F 82 17 05/13/19 07:59 05/13/19 07:56 69 12 05/13/19 04:39 97.5 F L 84 20 BP BP Pulse Ox Pulse Ox Pulse Ox 05/13/19 15:17 110/57 L 92 L 05/13/19 14:16 05/13/19 11:25 125/76 94 L 05/13/19 10:55 90 L 90 L 05/13/19 09:17 119/60 93 L 05/13/19 07:59 91 L 05/13/19 07:56 05/13/19 04:39 114/62 91 L Weight Weight 197 lb 9.6 oz I&O: 05/12/19 05/13/19 05/14/19 06:59 06:59 06:59 Intake Total 50 1375 Output Total 400 750 Balance -350 625 Result Diagrams: 05/13/19 09:18 05/13/19 09:18 Additional Labs: Labs and MARs reviewed by nc Hospitalist ROS - Review of Systems Constitutional: denies: fever, chills, sweats, weakness, malaise Respiratory: reports: cough, sputum. denies: dry, shortness of breath, hemoptysis, SOB with excertion, pleuritic pain, wheezing Skin: denies: rash, lesions, teddy, bruising - Medication Medications: Active Medications Generic Name Dose Route Start Last Admin Trade Name Freq PRN Reason Stop Dose Admin Albuterol/Ipratropium 3 ml 05/12/19 01:00 05/13/19 14:16 Duoneb NEB 3 ml [id number] KARY Administration Aspirin 81 mg 05/13/19 09:00 05/13/19 09:20 Ecotrin PO 81 mg DAILY KARY Administration Famotidine 20 mg 05/12/19 09:00 05/13/19 09:20 Pepcid SLOW IVP Not Given Q12HR KARY Furosemide 40 mg 05/12/19 09:00 05/13/19 09:20 Lasix PO 40 mg DAILY KARY Administration Cefepime HCl 1 gm/ Sodium 100 mls @ 200 mls/hr 05/12/19 05:00 05/13/19 04:54 Chloride IVPB 100 mls 0500,1700 KARY Administration Vancomycin HCl 2 gm/ Sodium 500 mls @ 250 mls/hr 05/13/19 15:00 05/13/19 15: 21 Chloride IVPB 500 mls 1500 KARY Administration Sodium Chloride 10 ml 05/11/19 23:06 05/12/19 06:33 Flush - Normal Saline IVF 10 ml Q12HR PRN Administration Saline Flush - Exam General Appearance: NAD Eye: anicteric sclera ENT: moist mucosa Neck: supple, symmetric Heart: RRR, no rubs Respiratory: CTAB Gastrointestinal: soft, non-tender Extremities: no clubbing Skin: no rashes Musculoskeletal: no muscle wasting Psychiatric: normal affect, normal behavior, A&O x 3 Hosp A/P (1) Pneumonia Code(s): J18.9 - PNEUMONIA, UNSPECIFIED ORGANISM Status: Acute (2) Acute on chronic respiratory failure with hypoxia and hypercapnia Code(s): J96.21 - ACUTE AND CHRONIC RESPIRATORY FAILURE WITH HYPOXIA; J96.22 - ACUTE AND CHRONIC RESPIRATORY FAILURE WITH HYPERCAPNIA Status: Acute Plan: present on admission (3) GERD (gastroesophageal reflux disease) Code(s): K21.9 - GASTRO-ESOPHAGEAL REFLUX DISEASE WITHOUT ESOPHAGITIS Status: Chronic (4) HTN (hypertension) Code(s): I10 - ESSENTIAL (PRIMARY) HYPERTENSION Status: Chronic (5) Obesity (BMI 30.0-34.9) Code(s): E66.9 - OBESITY, UNSPECIFIED Status: Chronic - Plan continue antibiotics, out of bed/ambulate Continue cefepime and vancomycin. HTN controlled. GERD stable. BiPAP while asleep for chronic respiratory failure.
--- NOTE | 2019-05-13 18:51 | PRG ---
DATE OF SERVICE: 05/13/2019 SERVICE: Pulmonary Medicine. INTERVAL HISTORY: The patient is actually doing quite well from respiratory standpoint. She has been able to walk around without difficulty. She is not using any oxygen when she is walking around. That being said, when she sits back down and gets in bed, she will put back on. Her strength is improved. She indicates that she is basically 90% back to baseline. PHYSICAL EXAMINATION: VITAL SIGNS: Afebrile, pulse 87, blood pressure 110/57, respirations 18, and saturation 92% on 2 L nasal cannula. GENERAL: The patient is awake and alert, in no apparent distress. LUNGS: Reduced air entry bilaterally. No prolonged expiratory phase or wheezing is appreciated. No rhonchi or crackles are appreciated. HEART: Normal rate. Regular. ABDOMEN: Soft, nontender, and nondistended. Bowel sounds are positive. MUSCULOSKELETAL: No cyanosis or clubbing. There is 1+ pitting in the right lower extremity. No pitting in the left lower extremity. NEUROLOGIC: Grossly nonfocal. LABORATORY DATA: WBC 6.7, hemoglobin 11.1, and platelets of 158,000 and rebounding. Neutrophils are gently downtrending. Basic metabolic profile is completely unremarkable/stable. Potassium 3.7. Vancomycin trough 8.0. Respiratory virus panel is unremarkable. Respiratory culture is negative to-date. Many gram-positive cocci in clusters are identified. That being said, it only represented normal respiratory sharon. ASSESSMENT: 1. Acute on chronic hypoxic and hypercapnic respiratory failure. 2. Community-acquired pneumonia. 3. Paralyzed left hemidiaphragm. DISCUSSION AND PLAN: The patient is doing great. She has made a near full recovery. She is essentially back to baseline at this point. If she is doing well tomorrow morning, she can be discharged from the hospital. She can complete a 7-day course of antibiotic with Levaquin 750 mg p.o. daily. I will have her return to clinic to see me in June. She will need a repeat chest x-ray. She already has that appointment scheduled. Job ID: [id number]
[2019-05-14 04:57] LABS: #Eosinphils 0.2 thou/uL (0.0-0.7); #Lymphocytes 0.6 thou/uL (1.20-3.40); #Monocytes 0.7 thou/uL (0.11-0.59); #Neutrophils 3.5 thou/uL (1.40-6.50); %Basophils 0.5 % (0.0-1.0); %Eosinophils 3.3 % (0.0-10.0); %Lymphocytes 12.2 % (21.0-51.0); %Monocytes 14.1 % (0.0-10.0); %Neutrophils 69.8 % (42.0-75.0); Hemoglobin 10.2 g/dL (12.0-16.0); Mean Corpuscular HGB CONC 31.5 g/dL (32.0-36.0); Mean Corpuscular Hemoglobin 25.8 pg (27.0-31.0); Mean Corpuscular Volume 81.9 fL (78.0-98.0); Mean Platelet Volume 9.9 fL (7.4-10.4); Platelet Count 151 thou/uL (130-400); RBC Distribution Width 16.2 % (11.5-14.5); Red Blood Cell (RBC) Count 3.94 mill/uL (4.20-5.40); White Blood Cell (WBC) Count 5.1 thou/uL (4.8-10.8)
[2019-05-14 05:13] LABS: Anion Gap 11 mmol/L (10-20); BUN (Urea Nitrogen) 13 mg/dL (9.8-20.1); Calc. Creatinine Clearance 82 mL/min (70-130); Carbon Dioxide 31 mmol/L (23-31); Chloride 103 mmol/L (98-107); Estimated GFR-MDRD 79; Glucose 125 mg/dL (83-110); Sodium 141 mmol/L (136-145)
[2019-05-14] MEDS: Cefepime 1 GM in Sodium Chloride 0.9% 100 ML IVPB SCH (05:16)
[2019-05-14] MEDS: Aspirin 81 mg Enteric Coated Tablet PO SCH (09:39)
[2019-05-14] MEDS: Famotidine/PF 20 mg/2ml Vial SLOW IVP SCH ×2 (09:39→09:43)
[2019-05-14] MEDS: Furosemide 40 MG TAB PO SCH (09:40)
[2019-05-14 16:08] VITALS: BP 143/69; TEMP 98
--- NOTE | 2019-05-14 16:20 | PRG ---
DATE OF SERVICE: 05/14/2019 SERVICE: Pulmonary Medicine. INTERVAL HISTORY: The patient is doing outstanding from respiratory standpoint. Breathing comfortably. No complaints of chest discomfort. She indicates that she is 80% to 90% back to baseline. Otherwise, there has been no interval change to her condition. She is coughing, but not bringing up phlegm at this point. PHYSICAL EXAMINATION: VITAL SIGNS: Afebrile, pulse 87, blood pressure 167/85, respirations 18, saturation 92% on 2 L nasal cannula. GENERAL: The patient is awake and alert, in no apparent distress. LUNGS: Decreased air entry on the left. Very good air entry on the right. No prolonged expiratory phase or wheezing appreciated. HEART: Normal rate and regular. ABDOMEN: Soft, nontender, nondistended. Bowel sounds are positive. MUSCULOSKELETAL: No cyanosis or clubbing. There is trace pitting in the left lower extremity and 1+ pitting in the right lower extremity. NEUROLOGIC: Grossly nonfocal. LABORATORY DATA: WBC 5.1, hemoglobin 10.2, platelets 151,000. Basic metabolic profile is unremarkable. Urinalysis is negative. Respiratory virus panel, respiratory culture negative to date. ASSESSMENT: 1. Acute on chronic hypoxic and hypercapnic respiratory failure. 2. Community-acquired pneumonia. 3. Paralyzed left hemidiaphragm. DISCUSSION AND PLAN: The patient is doing wonderful from respiratory standpoint. She is stable for transition out of the hospital. She will need to complete a 7-day course of antibiotic. She will return to clinic to see me in June with a preclinic chest x-ray, that appointment has already been scheduled. Job ID: [id number]
--- NOTE | 2019-05-14 22:00 | DIS ---
DATE OF ADMISSION: 05/11/2019 DATE OF DISCHARGE: 05/14/2019 PRIMARY CARE PROVIDER: Zana Li MD DISCHARGE DIAGNOSES: 1. Acute on chronic respiratory failure with hypoxia and hypercapnia. 2. Community-acquired pneumonia. CONDITION OF PATIENT ON THE DAY OF DISCHARGE: Stable. I assessed Ms. Grey on the day of discharge. She denies any chest pain or shortness of breath. Vital signs are stable. S1 and S2 are heard, regular. Lungs are clear to auscultation bilaterally. DISCHARGE MEDICATIONS: 1. Albuterol 2 puffs every 4 hours as needed. 2. Aspirin 81 mg daily. 3. Vitamin B12 of 1000 mcg every month subcutaneously. 4. Lasix 40 mg 2 times a day. 5. Cefdinir 300 mg 2 times a day for 5 days. 6. Azithromycin 250 mg daily for 5 days. HOSPITAL COURSE: Ms. Grey is a pleasant 84-year-old lady, who was admitted to [facility] on May 11, 2019, for acute on chronic hypoxic and hypercapnic respiratory failure. She was seen by Pulmonology Service, Dr. Suero. She improved with intravenous antibiotics and is being stepped down to oral antibiotics. On the day of discharge, she has normal electrolytes, normal creatinine of 0.70, normal white count, normocytic anemia with hemoglobin 10.2, and normal platelet count. POST-ACUTE CARE FOLLOWUP: The patient is advised to follow up with primary care provider in 3 days time and with Pulmonology Service in 3 to 4 weeks time. Many thanks for allowing me to participate in your patient's care. Please feel free to contact me with any questions or concerns. DIET: Heart Healthy. ACTIVITY: Ad alvaro. DISCHARGE DESTINATION: Home. TIME SPENT: Total amount of time spent coordinating this discharge: 32 minutes. Job ID: [id number] MTDD
--- NOTE | 2019-05-15 08:51 | PQF ---
MIKE DESAI DAVID [id number] [facility]-259 [id number] CLINICAL DOCUMENTATION CLARIFICATION FORM: POST DISCHARGE Addendum to original discharge summary date: ____ Late entry note date: __ DATE:05/15/2019 ATTN:SHO ARCHULETA Please exercise your independent, professional judgment in responding to the clarification form. Clinical indicators are provided on the bottom of this form for your review Please check appropriate box(s) to clarify if the following diagnosis has been ruled in or ruled out: Sepsis [ x ] Ruled in diagnosis [ ] Continue to treat [x ] Resolved [ ] Ruled out diagnosis [ ] Cannot rule out diagnosis [ ] Other diagnosis [ ] Unable to determine For continuity of documentation, please document condition throughout progress notes and discharge summary. Thank You. CLINICAL INDICATORS - SIGNS / SYMPTOMS / LABS 84/F Pt transfer from [facility] for sepsis,Pneumonia, and hypoxia.Pt reports she has had a cough, congestion,runny nose,fever-Documented in ED on 05/11 by Daniel Moore [id number] in ED on 05/11 by Daniel Moore Sepsis,Right lower lobe pneumonia--Documented in ED on 05/11 by Daniel Moore WBC-11.5-Documented in H&P on 05/11 by Celina Anderson Lactic ejhn-7-Yrxthbxxpc in H&P on 05/11 by Celina Anderson Acute on chronic respiratory failure with hypoxia and hypercapnia-Documented in Hospitalist progress note on 05/13 by Sho Archuleta B/P-117/55-Documented in Hospitalist progress note on 05/13 by Sho Archuleta RISK FACTORS Right lower lobe pneumonia--Documented in ED on 05/11 by Daniel Moore Acute on chronic respiratory failure with hypoxia and hypercapnia-Documented in Hospitalist progress note on 05/13 by Sho Archuleta TREATMENTS Given IV fluids,cefepime and vancomycin with improvement in her symptoms- Documented in ED on 05/11 by Oscar, Continue cefepime and vancomycin-Documented in Hospitalist progress note on by Sho Archuleta SAP Oncology Consultant [employer] Winform Viewer (This form is maintained as a part of the permanent medical record) 2014 [employer]. All Rights Reserved [email or web address] [not provided] MTDD
== END 2019-05-14 15:46 | disposition home or self-care (01) | DRG 871 ==
LOC: ERS 19:59 → 2NO 23:42
PROVIDERS: ADMIT Internal Medicine; ATTEND Internal Medicine
DX: A41.9 Sepsis, unspecified organism (principal); J18.9 Pneumonia, unspecified organism; J96.22 Acute and chronic respiratory failure with hypercapnia; J96.21 Acute and chronic respiratory failure with hypoxia; I50.22 Chronic systolic (congestive) heart failure; K21.9 Gastro-esophageal reflux disease without esophagitis; E66.9 Obesity, unspecified; I27.20 Pulmonary hypertension, unspecified; G83.89 Other specified paralytic syndromes; I11.0 Hypertensive heart disease with heart failure; Z90.49 Acquired absence of other specified parts of digestive tract; Z90.710 Acquired absence of both cervix and uterus; Z88.1 Allergy status to other antibiotic agents; Z88.0 Allergy status to penicillin; Z68.32 Body mass index [BMI] 32.0-32.9, adult
CPT/HCPCS: 36415; 80048; 80202; 85025; 87070; 87205; 87633; 94640; 99285; J0692; J3370; J3490; J7050; J7620; S0028

== ENCOUNTER 2020-05-18 13:12 | Inpatient (IN) | payer MEDICARE ==
[2020-05-18] MEDS ORDERED: Enoxaparin Sodium 100 MG/ML SYRINGE ONE (13:45)
[2020-05-18] MEDS ORDERED: Digoxin 0.5 MG/2 ML AMP ONE (13:45)
[2020-05-18] MEDS ORDERED: Magnesium 2 GM/50 ML BAG (IN WATER) ONE (13:45)
[2020-05-18] MEDS ORDERED: Iopamidol-370 76% 500 ML 1 ML ONE (13:47)
[2020-05-18 13:51] LABS: #Lymphocytes 0.4 thou/uL (1.20-3.40); #Monocytes 0.6 thou/uL (0.11-0.59); #Neutrophils 5.3 thou/uL (1.40-6.50); %Basophils 0.1 % (0.0-1.0); %Eosinophils 0.1 % (0.0-10.0); %Lymphocytes 6.8 % (21.0-51.0); %Monocytes 8.8 % (0.0-10.0); %Neutrophils 84.2 % (42.0-75.0); Hemoglobin 11.6 g/dL (12.0-16.0); Mean Corpuscular HGB CONC 31.6 g/dL (32.0-36.0); Mean Corpuscular Hemoglobin 25.6 pg (27.0-31.0); Mean Corpuscular Volume 81.1 fL (78.0-98.0); Mean Platelet Volume 10.5 fL (7.4-10.4); Platelet Count 169 thou/uL (130-400); RBC Distribution Width 16.8 % (11.5-14.5); Red Blood Cell (RBC) Count 4.51 mill/uL (4.20-5.40); White Blood Cell (WBC) Count 6.3 thou/uL (4.8-10.8)
[2020-05-18 14:22] LABS: ALT (SGPT) 11 U/L (8-55); AST (SGOT) 19 U/L (5-34); Albumin 3.9 g/dL (3.4-4.8); Alkaline Phosphatase 70 U/L (40-110); Anion Gap 16 mmol/L (10-20); BUN (Urea Nitrogen) 18 mg/dL (9.8-20.1); Bilirubin, Total 1.6 mg/dL (0.2-1.2); CK (CPK) 108 U/L (29-168); Calc. Creatinine Clearance 0 mL/min (70-130); Calcium 8.6 mg/dL (7.8-10.44); Carbon Dioxide 31 mmol/L (23-31); Chloride 97 mmol/L (98-107); Globulin 1.9 g/dL (2.4-3.5); Glucose 119 mg/dL (83-110); Lipase 17 U/L (8-78); Potassium 4.1 mmol/L (3.5-5.1); Protein, Total 5.8 g/dL (6.0-8.3); Sodium 140 mmol/L (136-145)
--- NOTE | 2020-05-18 16:03 | CT ---
CT PULMONARY ANGIOGRAM WITH IV CONTRAST AND 3D POST PROCESSING: History: Atrial fibrillation with tachycardia. Elevated D-Dimer. Comparison: 07-27-2019 FINDINGS: There is good opacification of the pulmonary arteries with filling defects in the posteromedial branc hes of the right lower lobe. There is continued enlargement of the pulmonary arteries with the right pulmonary artery measuring about 4 cm. There is stable since the last exam and suggestive of pulmonar y arterial hypertension. There are vascular calcifications without evidence of aneurysmal dilatation of the thoracic aorta. No pericardial effusion is seen with a tiny right pleural effusion and a moderate left sided effusion. There is elevation of the left hemidiaphragm. There is passive atelectasis adjacent to the left pleur al effusion. No pneumothoraces or lobar consolidations are seen. There are degenerative changes in the spine. Upper abdominal tomograms demonstrate changes of cholecy stectomy and re-demonstration of air in the intrahepatic biliary ducts. A right renal cyst is again s een. There is a small low density lesion in the right upper lobe, better visualized on the previous study. IMPRESSION: 1. Findings are consistent with pulmonary embolism. 2. Left pleural effusion. 3. Probable pulmonary artery hypertension. Discussed over the telephone with ER physician, Dr. Javier Romano at 3:27 p.m. 05-18-2020. POS: OFF
[2020-05-18 17:25] LABS: Troponin I 0.034 ng/mL (< 0.028)
--- NOTE | 2020-05-18 18:16 | HP ---
PRIMARY CARE PROVIDER: Zana Li MD. PRIMARY MULTIPLE PRESSURE RIVETER OPERATOR: Wicho Ferrell MD CHIEF COMPLAINT: Shortness of breath. HISTORY OF PRESENT ILLNESS: This is an 85-year-old female, who presents to [facility] Emergency Department complaining of approximately 2- to 3-day history of progressive shortness of breath despite rest or minimal activity. The patient also had associated chest tightness, but no prominent cough, hemoptysis, or fever. The patient does admit to chronic shortness of breath and uses a nocturnal BiPAP prescribed by her truss driver helper, Dr. Apple. The patient does admit to home oxygen, but typically only wears it at night up to 2 L/minute by nasal cannula. The patient states during the day she is ambulatory with a rolling walker and does not wear the oxygen. The patient also admits to history of chronic atrial fibrillation, but denies taking any rate control measures or anticoagulation. The daughter reports the patient has a history of deep venous thrombosis of the right lower extremity in the context of chronic venous stasis with lymphedema. The patient states this was several years prior to this evaluation and has not been on any current or recent anticoagulation. In the emergency room, the patient underwent general evaluation including CT angiogram of the chest showing a right-sided pulmonary embolus. The patient was also noted on telemetry and by EKG evaluation to be in atrial fibrillation with rapid ventricular response with initial heart rates in the 180s. The patient received Adenocard followed by a bolus of Cardizem 20 mg x1 and placed on a Cardizem infusion. The patient was also given digoxin at which point the heart rate decreased into the upper 90 to 100 range. The patient also received Lovenox, topical nitroglycerin, Lasix IV push, and aspirin 324 mg. PAST MEDICAL HISTORY: 1. Question of chronic atrial fibrillation without rate control measures or anticoagulation. 2. History of DVT without current anticoagulation. 3. Chronic venous stasis/lymphedema. 4. 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 5. Hypertension. PAST SURGICAL HISTORY: 1. Left-sided partial lobectomy. 2. Status post appendectomy. 3. Status post cholecystectomy. 4. Status post total hysterectomy. 5. Status post repair of a right hip fracture. CURRENT MEDICATIONS: 1. Lasix dose unknown. 2. Aspirin 81 mg daily. ALLERGIES: CIPROFLOXACIN FAMILY HISTORY: Positive for hypertension and coronary artery disease. SOCIAL HISTORY: Resides in the [place], [place] area with her . Ambulatory with a rolling walker. Functional of all activities of daily living. No alcohol, tobacco, or illicit drug use. No recent falls. Accompanied by her daughter in the emergency room. REVIEW OF SYSTEMS: CONSTITUTIONAL: Negative for weight loss or gain, ability to conduct usual activities. SKIN: Negative for rash, itching. EYES: Negative for double vision, pain. ENT/MOUTH: Negative for nose bleeding, neck stiffness, pain, tenderness. CARDIOVASCULAR: Negative for palpitations, dyspnea on exertion, orthopnea. RESPIRATORY: Negative for shortness of breath, wheezing, cough, hemoptysis, fever or night sweats. GASTROINTESTINAL: Negative for poor appetite, abdominal pain, heartburn, nausea, vomiting, constipation, or diarrhea. GENITOURINARY: Negative for urgency, frequency, dysuria, nocturia. MUSCULOSKELETAL: Negative for pain, swelling. NEUROLOGIC/PSYCHIATRIC: Negative for anxiety, depression. ALLERGY/IMMUNOLOGIC: Negative for skin rash, bleeding tendency. Otherwise negative except as stated per HPI. PHYSICAL EXAMINATION: VITAL SIGNS: On admission; blood pressure 110/69, pulse 185, respiratory rate 32, temperature 98 degrees Fahrenheit, O2 saturation 86% on 3 L/minute by nasal cannula. GENERAL APPEARANCE: This is an 85-year-old female, alert and oriented x3, pleasant, responsive, in mild respiratory distress. HEENT: Pupils are equal, round, reactive to light and accommodation. Extraocular muscles are intact. No scleral icterus. No conjunctival injection. Nares are patent. OP is clear. Teeth in fair repair. NECK: Supple. No cervical adenopathy. No thyromegaly. No carotid bruits. No JVD appreciated. Cervical spine with full active and passive range of motion. No meningeal signs noted. CHEST: Absent breath sounds in the left base, chronic. Right lung ramirez with scattered coarse rhonchi. CARDIOVASCULAR: S1 and S2 with irregular rate and rhythm with tachycardia. ABDOMEN: Obese, soft, nontender, and nondistended. Bowel sounds are positive in all 4 quadrants. No palpable mass. No rebound or guarding appreciated. EXTREMITIES: Warm and dry with fair turgor. Chronic venous stasis changes with erythematous changes at the distal tibia and ankle region bilaterally. Pulses are palpable distally at the dorsalis pedis and posterior tibial arteries. No palpable cords. NEUROLOGIC: Cranial nerves 2 through 12 are grossly intact. No focal or lateralizing signs appreciated. The patient not observed ambulatory during this exam. PERTINENT LABORATORY AND X-RAY FINDINGS: Sodium 140, potassium 4.1, chloride 97, CO2 of 31, BUN 18, creatinine 1.10, estimated GFR 47, glucose 119, calcium 8.6. AST 19, ALT of 11, alkaline phosphatase 70, total bilirubin 1.6. Troponin I negative x1. BNP 688, previously noted 699 on 07/27/2019. Lipase 17. CBC showed a white blood cell count of 6.3, hemoglobin of 12, hematocrit 37, platelet count 169 with 84% neutrophilia. D-dimer 5.10. Portable chest x-ray dated 05/18/2020, showed elevated left hemidiaphragm. CT angiogram of the chest dated 05/18/2020, showed pulmonary embolus with filling defects in the posterior medial branches of the right lower lobe. Enlarged pulmonary arteries consistent with pulmonary hypertension. Left pleural effusion. EKG dated 05/18/2020, by my interpretation shows atrial fibrillation with rapid ventricular response, heart rates in the 160s to 180s. Complete right bundle-branch block pattern. ASSESSMENT AND PLAN: 1. Atrial fibrillation with rapid ventricular response. The patient will be admitted to the telemetry unit. We will continue rate control measures with Cardizem 15 mg/hour continuously. Continue Lovenox 90 mg subcutaneously b.i.d. Check TSH and magnesium level in the a.m. Consult Cardiology Service for any further recommendations. Check 2D transthoracic echocardiogram in the a.m. 2. Right lower lobe pulmonary embolus. Suspect acute/subacute process. Continue Lovenox 90 mg subcutaneously b.i.d. Consider oral anticoagulation options for discharge. Oxygen supplementation as needed. 3. Acute on chronic hypoxic respiratory failure. Continue oxygen supplementation to maintain O2 saturations greater than or equal to 90%. Assess for continuation of home oxygen needs. 4. Chronic venous stasis/lymphedema of the lower extremities. Continue general supportive management. Elevate lower extremities while in bed. Check bilateral lower extremity venous Doppler study to rule out DVT. Continue Lasix 40 mg p.o. b.i.d. 5. Prophylaxis. SCDs held due to lower extremity edema. Pepcid 20 mg p.o. b.i.d. 6. Code status is full. Surrogate medical decision maker is patient's daughter. Job ID: [id number]
[2020-05-18] MEDS ORDERED: Ondansetron ODT 4 MG TAB SL PRN (19:30)
[2020-05-18] MEDS ORDERED: Ondansetron PF 4 MG/2 ML Vial IVP PRN ×2 (19:30→19:40)
[2020-05-18] MEDS ORDERED: Diltiazem HCl 125 MG, Admixture Fee 1 EACH in Sodium Chloride 0.9% 100 ML IVPB SCH (19:30)
[2020-05-18] MEDS ORDERED: Acetaminophen 500 MG TAB PO PRN (19:40)
[2020-05-18] MEDS ORDERED: Labetalol HCl 100 MG/20 ML VIAL SLOW IVP PRN (19:40)
[2020-05-18] MEDS ORDERED: Ondansetron ODT 4 MG TAB PO PRN (19:40)
[2020-05-18] MEDS ORDERED: PROVENTIL INHALER 6.7 G (200 INHALATIONS) INH PRN (19:48)
[2020-05-18 20:26] VITALS: BMI 33.7
[2020-05-18 20:45] LABS: Troponin I 0.029 ng/mL (< 0.028)
[2020-05-18] MEDS ORDERED: Furosemide 40 MG/4 ML VIAL SLOW IVP SCH (21:00)
[2020-05-18] MEDS ORDERED: Famotidine 20 MG TAB PO SCH (21:00)
[2020-05-18] MEDS ORDERED: Aspirin 325 MG TAB PO SCH (21:00)
[2020-05-18] MEDS: Enoxaparin Sodium 100 MG/ML SYRINGE SC SCH (21:14)
[2020-05-18] MEDS: Digoxin 0.5 MG/2 ML AMP SLOW IVP SCH (21:15)
[2020-05-19] MEDS: Diltiazem 125 MG in Sodium Chloride 0.9% 100 ML IVPB SCH ×2 (02:02→11:19)
[2020-05-19] MEDS: Digoxin 0.5 MG/2 ML AMP SLOW IVP SCH ×3 (02:03→12:47)
[2020-05-19 02:11] LABS: SARS-CoV-2 MS2 Positive; SARS-CoV-2 N Gene Negative; SARS-CoV-2 S Gene Negative; SARS-CoV-2 by NAA Not Detected (NotDetected); SARS-CoV-2 orf1ab Negative
[2020-05-19 04:35] LABS: #Eosinphils 0.1 thou/uL (0.0-0.7); #Lymphocytes 0.7 thou/uL (1.20-3.40); #Monocytes 0.8 thou/uL (0.11-0.59); #Neutrophils 4.2 thou/uL (1.40-6.50); %Basophils 0.5 % (0.0-1.0); %Eosinophils 1.7 % (0.0-10.0); %Lymphocytes 11.3 % (21.0-51.0); %Monocytes 13.8 % (0.0-10.0); %Neutrophils 72.7 % (42.0-75.0); Hemoglobin 11.1 g/dL (12.0-16.0); Mean Corpuscular HGB CONC 30.9 g/dL (32.0-36.0); Mean Corpuscular Hemoglobin 25.3 pg (27.0-31.0); Mean Corpuscular Volume 81.8 fL (78.0-98.0); Mean Platelet Volume 10.2 fL (7.4-10.4); Platelet Count 173 thou/uL (130-400); RBC Distribution Width 16.7 % (11.5-14.5); Red Blood Cell (RBC) Count 4.39 mill/uL (4.20-5.40); White Blood Cell (WBC) Count 5.8 thou/uL (4.8-10.8)
[2020-05-19 05:02] LABS: Anion Gap 15 mmol/L (10-20); BUN (Urea Nitrogen) 17 mg/dL (9.8-20.1); Calc. Creatinine Clearance 55 mL/min (70-130); Calcium 8.4 mg/dL (7.8-10.44); Carbon Dioxide 29 mmol/L (23-31); Chloride 100 mmol/L (98-107); Glucose 102 mg/dL (83-110); Magnesium 2.4 mg/dL (1.6-2.6); Potassium 4.2 mmol/L (3.5-5.1); Sodium 140 mmol/L (136-145)
--- NOTE | 2020-05-19 07:55 | ULT ---
EXAM: Bilateral lower extremity venous Doppler US HISTORY: bilateral lower extremity edema and pulmonary embolism FINDINGS: Grayscale, color-flow, Doppler evaluation, spectral analysis of the bilateral lower extremities venou s structures is performed with 2-D imaging. The bilateral common femoral, superficial femoral, popliteal, posterior tibial, proximal greater saphenous and profunda femoral veins are imaged. There is normal luminal compressibility, flow, and augmentation in the visualized deep venous structu res of the bilateral lower extremities. IMPRESSION: No evidence of a deep vein thrombosis in either lower extremity.
[2020-05-19] MEDS: Furosemide 40 MG TAB PO SCH ×2 (08:00→13:00)
[2020-05-19] MEDS ORDERED: Aspirin 81 mg Enteric Coated Tablet PO SCH (09:00)
[2020-05-19] MEDS: Enoxaparin Sodium 100 MG/ML SYRINGE SC SCH ×2 (09:07→19:59)
[2020-05-19] MEDS ORDERED: Digoxin 0.5 MG/2 ML AMP SLOW IVP SCH ×2 (09:15→09:30)
[2020-05-19 09:23] LABS: Hemoglobin 12.1 g/dL (12.0-16.0); Platelet Count 167 thou/uL (130-400)
--- NOTE | 2020-05-19 09:42 | CON ---
DATE OF CONSULTATION: HISTORY OF PRESENT ILLNESS: The patient is an 85-year-old woman who presents with increasing dyspnea. The patient has a history of mild coronary artery disease. She previously underwent cardiac catheterization in 2007, She was found to have a 20% left main lesion. 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 The patient was in her usual state of health when she presented with increasing dyspnea. The patient denied having any chest discomfort. PAST MEDICAL HISTORY: 1. Coronary artery disease. 2. Hypertension. 3. Restrictive lung disease. 4. History of DVT. 5. Cholelithiasis. 6. GE reflux. PAST SURGICAL HISTORY: 1. Appendectomy. 2. Cholecystectomy. 3. Hysterectomy. 4. Cataract surgery. ALLERGIES: FELDENE, PIROXICAM, AND CIPROFLOXACIN. MEDICATIONS: 1. Lasix 40 daily. 2. Aspirin 81 daily. 3. Albuterol inhalers. REVIEW OF SYSTEMS: Ten-point system otherwise unremarkable. No history of easy bruising or bleeding. PHYSICAL EXAMINATION: GENERAL: Obese woman, in mild distress. VITAL SIGNS: Blood pressure 138/63. NECK: No jugular vein distention. LUNGS: Clear to auscultation and percussion. HEART: Irregular rate and rhythm. Normal S1 and S2. No murmurs. ABDOMEN: Distended. EXTREMITIES: Severe bilateral edema. VASCULAR: Radial pulses 2+. LABORATORY DATA: Sodium 140, potassium 4.2, chloride 100, bicarbonate 29, BUN 15, and creatinine 1.14. Troponin 0.029. White blood cell count 5.8, hemoglobin 11.1, hematocrit 35.9, and platelet are 173. EKG atrial fibrillation with a rapid ventricular response and a right bundle-branch block. IMPRESSION: 1. Paroxysmal atrial fibrillation. 2. Pulmonary emboli. 3. History of mild coronary artery disease. 4. History of deep vein thrombosis. 5. 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 6. Restrictive lung disease. PLAN: This patient presents with a pulmonary embolus. She is in rapid atrial fibrillation. The patient was treated with IV Cardizem. Her heart remains elevated. At this time, I will add digoxin to her medical regimen. I will start her on a p.o. dose of Cardizem. We will follow this patient with you through her hospitalization. The patient will need long-term anticoagulation therapy. Job ID: [id number] [facility]
--- NOTE | 2020-05-19 14:00 | PDOC.HOSPP ---
- Subjective Encounter Date: 05/19/20 Subjective: Says she is feeling generally better than she did when she arrived. Says she still has mild shortness of breath but feels like that is been fairly longstanding over the last year. She says she saw her PCP in July and had pneumonia at that time. Has not seen him since. Feels like she has been short of breath since that occasion. No known history of prior atrial fibrillation. - Objective Vital Signs & Weight: Vital Signs (12 hours) Temp Pulse Resp BP BP Pulse Ox 05/19/20 11:12 98.0 F 91 22 H 135/65 91 L 05/19/20 09:26 95 05/19/20 09:25 91 132/70 05/19/20 07:37 97.5 F L 88 19 138/63 94 L 05/19/20 03:00 97.6 F 80 20 122/58 L 88 L Weight Weight 221 lb 8 oz I&O: 05/18/20 05/19/20 05/20/20 06:59 06:59 06:59 Intake Total 520 Output Total 500 Balance 20 Result Diagrams: 05/19/20 09:05 05/19/20 09:05 Hospitalist ROS - Medication Medications: Active Medications Generic Name Dose Route Start Last Admin Trade Name Freq PRN Reason Stop Dose Admin Acetaminophen 1,000 mg 05/18/20 19:40 05/18/20 21:41 Acetaminophen 500 Mg Tab PO 1,000 mg Q6H PRN Administration Mild Pain (1-3) Digoxin 0.25 mg 05/19/20 13:00 05/19/20 12:47 Digoxin 0.5 Mg/2 Ml Amp SLOW IVP 05/19/20 14:00 Not Given 0900,1300 KARY Enoxaparin Sodium 90 mg 05/18/20 21:00 05/19/20 09:07 Enoxaparin Sodium 100 Mg/Ml Syringe SC 90 mg 0900,2100 KARY Administration Furosemide 40 mg 05/19/20 09:00 05/19/20 13:00 Furosemide 40 Mg Tab PO 40 mg 0900,1400 KARY Administration Diltiazem HCl 125 mg/ Sodium 125 mls @ 10 mls/hr 05/18/20 19:40 05/19/20 11:19 Chloride IVPB 125 mls INF KARY Administration Protocol 10 MG/HR Influenza Virus Vaccine Quadrival 240 mcg 05/19/20 21:00 05/19/20 00:25 Flu Vacc [id number](65yr Up)/Pf 240 Mcg/0.7 Ml Syringe IM 05/19/20 21:01 Not Given .ONCE ONE - Exam General Appearance: NAD, awake alert Heart: no murmur, no gallops, no rubs, normal peripheral pulses, irregular Respiratory: CTAB, no wheezes, no rales, no ronchi, normal chest expansion, no tachypnea, normal percussion Gastrointestinal: soft, non-tender, non-distended, normal bowel sounds, no palpable masses, no hepatomegaly, no splenomegaly, no bruit Extremities - other findings: Right distal calf edema, small abrasion, erythema anteriorly. Skin: normal turgor Neurological: no focal deficits Musculoskeletal: normal tone Psychiatric: normal affect, normal behavior, A&O x 3 Hosp A/P (1) Atrial fibrillation with rapid ventricular response Code(s): I48.91 - UNSPECIFIED ATRIAL FIBRILLATION Status: Acute (2) Pulmonary embolus Code(s): I26.99 - OTHER PULMONARY EMBOLISM WITHOUT ACUTE COR PULMONALE Status: Acute (3) Stasis dermatitis Code(s): I87.2 - VENOUS INSUFFICIENCY (CHRONIC) (PERIPHERAL) Status: Acute (4) Venous stasis Code(s): I87.8 - OTHER SPECIFIED DISORDERS OF VEINS Status: Acute (5) Acute on chronic respiratory failure with hypoxemia Code(s): J96.21 - ACUTE AND CHRONIC RESPIRATORY FAILURE WITH HYPOXIA Status: Acute - Plan Atrial fibrillation with RVR: Patient continues on diltiazem drip. Full dose anticoagulation. Seen by cardiology. Digoxin is being added. P.o. diltiazem added. Pulmonary embolus: No evidence of DVT in the lower extremity at this time on ultrasound. Continue full dose anticoagulation. Acute on chronic hypoxic respiratory failure: Continue supplemental oxygen. Appears to do well on 2 L per nasal cannula. Chronic stasis dermatitis: She has slight erythema of the right anterior calf area. Small abrasion where she says she bumped her scratch that. Slight halo of erythema does not appear to represent significant cellulitis.
[2020-05-19] MEDS ORDERED: Diltiazem 125 MG in Sodium Chloride 0.9% 100 ML IVPB SCH (14:15)
--- NOTE | 2020-05-19 15:57 | PDOC.EVN ---
Event Note - Event Note Event Note: During the patient's medical records. It appears as though she has fairly severe pulmonary hypertension that was apparent on her CT scan in July of this year. Is possible the patient could have had some prior pulmonary emboli or this could be primary pulmonary hypertension. Certainly accounts for her shortness of breath over the past year. In addition to that she has other contributing factors including kyphosis, elevated left hemidiaphragm and now a small to moderate left pleural effusion. Her echocardiogram looked pretty good. She did have notable pulmonary artery pressure elevations. She will need outpatient follow-up with pulmonology. Unfortunately probably not a lot of good options to treat the pulmonary hypertension at this point other than anticoagulation.
[2020-05-19] MEDS ORDERED: Sodium Chloride 0.9% 1,000 ML IV SCH (16:00)
[2020-05-19] MEDS: Famotidine 20 MG TAB PO SCH (19:59)
[2020-05-19] MEDS ORDERED: FLU VACC QS2020-21(65YR UP)/PF 240 MCG/0.7 ML SYRINGE IM ONE (21:00)
[2020-05-20 04:41] LABS: #Eosinphils 0.1 thou/uL (0.0-0.7); #Lymphocytes 0.5 thou/uL (1.20-3.40); #Monocytes 0.5 thou/uL (0.11-0.59); #Neutrophils 3.2 thou/uL (1.40-6.50); %Basophils 0.5 % (0.0-1.0); %Eosinophils 2.2 % (0.0-10.0); %Lymphocytes 12.3 % (21.0-51.0); %Monocytes 10.6 % (0.0-10.0); %Neutrophils 74.6 % (42.0-75.0); Hemoglobin 10.2 g/dL (12.0-16.0); Mean Corpuscular Hemoglobin 25.6 pg (27.0-31.0); Mean Corpuscular Volume 82.7 fL (78.0-98.0); Platelet Count 145 thou/uL (130-400); RBC Distribution Width 16.6 % (11.5-14.5); Red Blood Cell (RBC) Count 3.98 mill/uL (4.20-5.40); White Blood Cell (WBC) Count 4.4 thou/uL (4.8-10.8)
[2020-05-20 05:08] LABS: Anion Gap 10 mmol/L (10-20); BUN (Urea Nitrogen) 15 mg/dL (9.8-20.1); Calc. Creatinine Clearance 71 mL/min (70-130); Calcium 8.1 mg/dL (7.8-10.44); Carbon Dioxide 31 mmol/L (23-31); Chloride 100 mmol/L (98-107); Glucose 93 mg/dL (83-110); Sodium 137 mmol/L (136-145)
[2020-05-20] MEDS: Enoxaparin Sodium 100 MG/ML SYRINGE SC SCH ×2 (08:19→21:07)
[2020-05-20] MEDS ORDERED: Digoxin 0.5 MG/2 ML AMP SLOW IVP SCH (09:00)
--- NOTE | 2020-05-20 14:14 | PQF ---
CLINICAL DOCUMENTATION CLARIFICATION FORM: Dear Dr. Violeta HARRISON Date: 05/20/20 [id number] Please exercise your independent, professional judgment in responding to the clarification form. Clinical indicators are provided on the bottom of this form for your review. Please check appropriate box(es): CONGESTIVE HEART FAILURE: A. ACUITY [ ] Acute [ x ] Acute on Chronic [ ] Chronic B. TYPE: [ ] Systolic / HFrEF [ x ] Diastolic / HFpEF [ ] Combined Systolic / Diastolic [ ] Hypertensive Heart Disease [ ] Other diagnosis [ ] Unable to determine In addition, please specify: Present on Admission (POA): [ x ] Yes [ ] No [ ] Unable to determine For continuity of documentation, please document condition throughout progress notes and discharge summary. Thank You. To be completed by CDI/Coding staff for physician review: CLINICAL INDICATORS - SIGNS / SYMPTOMS / LABS / RESULTS AND LOCATION IN EMR BNP 688.0 ( 05/18) Congestive heart failure secondary to diastolic dysfunction ( Consult/Ferrell) 05/19 Presents for sob and chest pain, reports heart racing, pitting edema ED Final DX: New onset A fib w/ RVR, CHF, Left Pleural Effusion, Pulmonary Embolism ( ED Report) 05/18 Echo : Ejection fraction is visually estimated at 55-60%, right ventricular systolic pressure of 79mm Hg consistent with severe pulmonary hypertension. ( 05/19) RISKS FACTORS / RESULTS AND LOCATION IN EMR Hx Cad, Hypertension, CHF ( Consult/Ferrell) 05/19 Pitting edema, Afib w/ RVR ( ED report) 05/18 TREATMENTS / RESULTS AND LOCATION IN EMR Cardiac monitoring / telemetry ( 05/18 present) PO Lasix 05/19 Supplemental Oxygen (05/18 present) Cardiology Consult (05/19) Thank you! CDS Signature: Aida Tejeda, DARWIN Phone #:[phone] Date: 05/20/20 This is a permanent part of the Medical Record [facility]
--- NOTE | 2020-05-20 14:20 | CON ---
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 Her heart rate was in 180, found to be in atrial fibrillation. She was started on a Cardizem drip. She has severe limitation to activity. She can barely walk 50 feet without getting markedly short of breath. A week ago, she developed some vague left-sided chest pain, shoulder pain, was coughing some yellow sputum, but there is no fever or chills. Previous history of pneumonia. No history of TB or asthma. She has history of chronic respiratory failure and is on nocturnal ventilator at home. PAST MEDICAL HISTORY: Pulmonary hypertension, atrial fibrillation, obesity, probably severe restrictive pulmonary disease, nonsmoker, lower extremity swelling, diastolic dysfunction. PREVIOUS SURGERIES: Cholecystectomy, hysterectomy, hip fracture, previous lobectomy apparently left-sided. SOCIAL HISTORY: No alcohol. No tobacco abuse. ALLERGIES: CIPRO. HOME MEDICATIONS: Include: 1. Lasix 40. 2. B12. 3. Aspirin. 4. ProAir. Nocturnal ventilator. PHYSICAL EXAMINATION: EXTREMITIES: She has 2+ ankle edema. GENERAL: In mild distress. VITAL SIGNS: Pulse 80, respirations 20, blood pressure 120/80. CHEST: Decreased breath sounds in left lung. CARDIAC: Normal S1 and S2. No gallops. ABDOMEN: No masses. LABORATORY DATA: Shows white count 4000, H and H of 10 and 30, platelet count normal. Lytes are normal as noted. CT chest shows evidence of pulmonary emboli, but no evidence of any DVT. IMPRESSION: 1. Severe pulmonary hypertension secondary to severe restrictive pulmonary impairment. 2. Chronically elevated right hemidiaphragm with a small new left pleural effusion. 3. Morbid obesity. 4. Chronic respiratory failure. PLAN: She is on Lovenox. We can probably switch over to Eliquis in the next day. Empiric antibiotics have been initiated along with low-dose steroids and neb treatments. She is to continue nocturnal ventilator at nighttime. We will notify Dr. Mitchell. Otherwise, Pulmonary/Critical Care will follow while in the hospital. This is a consultation note, 70 minutes, 50% direct patient care. Job ID: [id number]
--- NOTE | 2020-05-20 17:08 | PDOC.HOSPP ---
- Subjective Encounter Date: 05/20/20 Subjective: Still feeling a little short of breath with exertion. - Objective Vital Signs & Weight: Vital Signs (12 hours) Temp Pulse Pulse Pulse Resp BP BP 05/20/20 15:02 98.0 F 65 19 05/20/20 13:34 80 16 05/20/20 13:20 82 118 H 147/69 H 133/83 05/20/20 11:46 22 H 05/20/20 11:23 97.7 F 78 05/20/20 08:18 80 05/20/20 08:14 20 05/20/20 07:45 97.9 F 80 21 H BP Pulse Ox 05/20/20 15:02 126/93 H 99 05/20/20 13:34 05/20/20 13:20 05/20/20 11:46 05/20/20 11:23 135/61 92 L 05/20/20 08:18 05/20/20 08:14 05/20/20 07:45 125/60 92 L Weight Weight 222 lb 12.8 oz I&O: 05/19/20 05/20/20 05/21/20 06:59 06:59 06:59 Intake Total 520 2250 Output Total 500 725 Balance 20 1525 Result Diagrams: 05/20/20 04:13 05/20/20 04:13 Hospitalist ROS - Medication Medications: Active Medications Generic Name Dose Route Start Last Admin Trade Name Freq PRN Reason Stop Dose Admin Acetaminophen 1,000 mg 05/18/20 19:40 05/18/20 21:41 Acetaminophen 500 Mg Tab PO 1,000 mg Q6H PRN Administration Mild Pain (1-3) Albuterol/Ipratropium 3 ml 05/20/20 13:00 05/20/20 13:34 Ipratropium/Albuterol Sulfate 3 Ml Neb NEB 3 ml [id number] KARY Administration Diltiazem HCl 120 mg 05/20/20 09:00 05/20/20 08:19 Diltiazem Cd 120 Mg Cap PO 120 mg DAILY KARY Administration Enoxaparin Sodium 90 mg 05/18/20 21:00 05/20/20 08:19 Enoxaparin Sodium 100 Mg/Ml Syringe SC 90 mg 0900,2100 KARY Administration Famotidine 20 mg 05/19/20 21:00 05/19/20 19:59 Famotidine 20 Mg Tab PO 20 mg QPM KARY Administration Furosemide 40 mg 05/19/20 09:00 05/19/20 13:00 Furosemide 40 Mg Tab PO 40 mg 0900,1400 KARY Administration - Exam General Appearance: NAD, awake alert Heart: no murmur, no gallops, no rubs, irregular Respiratory: CTAB, no wheezes, rales (Mild, scattered) Respiratory - other findings: Diminished Gastrointestinal: soft, non-tender, non-distended Extremities: no cyanosis, no clubbing, 2+ LE edema Skin: normal turgor Neurological: no new deficit Musculoskeletal: normal tone, normal strength, no muscle wasting Psychiatric: normal affect, normal behavior, A&O x 3 Hosp A/P (1) Atrial fibrillation with rapid ventricular response Code(s): I48.91 - UNSPECIFIED ATRIAL FIBRILLATION Status: Acute (2) Pulmonary embolus Code(s): I26.99 - OTHER PULMONARY EMBOLISM WITHOUT ACUTE COR PULMONALE Status: Acute (3) Stasis dermatitis Code(s): I87.2 - VENOUS INSUFFICIENCY (CHRONIC) (PERIPHERAL) Status: Acute (4) Venous stasis Code(s): I87.8 - OTHER SPECIFIED DISORDERS OF VEINS Status: Acute (5) Acute on chronic respiratory failure with hypoxemia Code(s): J96.21 - ACUTE AND CHRONIC RESPIRATORY FAILURE WITH HYPOXIA Status: Acute (6) Acute on chronic diastolic (congestive) heart failure Code(s): I50.33 - ACUTE ON CHRONIC DIASTOLIC (CONGESTIVE) HEART FAILURE Status: Acute (7) Acute on chronic respiratory failure with hypoxia and hypercapnia Code(s): J96.21 - ACUTE AND CHRONIC RESPIRATORY FAILURE WITH HYPOXIA; J96.22 - ACUTE AND CHRONIC RESPIRATORY FAILURE WITH HYPERCAPNIA Status: Acute (8) BiPAP (biphasic positive airway pressure) dependence Code(s): Z99.89 - DEPENDENCE ON OTHER ENABLING MACHINES AND DEVICES Status: Chronic (9) Elevated diaphragm Code(s): J98.6 - DISORDERS OF DIAPHRAGM Status: Chronic (10) GERD (gastroesophageal reflux disease) Code(s): K21.9 - GASTRO-ESOPHAGEAL REFLUX DISEASE WITHOUT ESOPHAGITIS Status: Chronic (11) Obesity (BMI 30.0-34.9) Code(s): E66.9 - OBESITY, UNSPECIFIED Status: Chronic (12) Pulmonary hypertension Code(s): I27.2 - OTHER SECONDARY PULMONARY HYPERTENSION * DO NOT USE * Status: Chronic - Plan Atrial fibrillation with RVR: Initially started on a diltiazem drip. Subsequently converted to p.o. diltiazem and digoxin. Was able to wean off of the drip with good rate control on oral medications. Full dose anticoagulation. Seen by cardiology. Pulmonary embolus: No evidence of DVT in the lower extremity at this time on ultrasound. Continue full dose anticoagulation. Can likely transition to oral anticoagulation on 05/21/2020 Acute on chronic hypoxic/hypercapnic respiratory failure: Secondary to severe pulmonary hypertension, restrictive lung disease, pulmonary embolus, chronically elevated left hemidiaphragm, small pleural effusion, atrial fibrillation and diastolic heart failure. Continue supplemental oxygen. Appears to do well on 2 L per nasal cannula. Pulmonology consulted. Patient previously followed with Dr. Suero and has subsequently only seen Dr. Mitchell in the clinic once. Bronchodilators, steroids antibiotics empirically started. Severe pulmonary hypertension: Secondary to restrictive lung disease. As above Chronic stasis dermatitis: She has slight erythema of the right anterior calf area. Small abrasion where she says she bumped her scratch that. Slight halo of erythema does not appear to represent significant cellulitis. Disposition: Patient may need to consider some intermediate step such as rehab prior to going home.
[2020-05-20] MEDS: Mometasone 200 MCG/Formoterol 5 MCG 120 PUFF INHALER INH SCH (19:03)
[2020-05-20] MEDS: Amoxicillin/Potassium Clav 500 MG TAB PO SCH (21:06)
[2020-05-20] MEDS: Famotidine 20 MG TAB PO SCH (21:06)
[2020-05-21] MEDS: Mometasone 200 MCG/Formoterol 5 MCG 120 PUFF INHALER INH SCH ×2 (07:18→18:58)
[2020-05-21] MEDS: Amoxicillin/Potassium Clav 500 MG TAB PO SCH ×2 (08:12→21:31)
[2020-05-21] MEDS: predniSONE 20 MG TAB PO SCH (08:13)
[2020-05-21] MEDS: Enoxaparin Sodium 100 MG/ML SYRINGE SC SCH (08:13)
[2020-05-21] MEDS: Furosemide 40 MG TAB PO SCH ×2 (08:15→14:58)
--- NOTE | 2020-05-21 11:09 | PRG ---
DATE OF SERVICE: SUBJECTIVE: Elizabeth Grey is an 85-year-old morbidly obese female, who is better this morning. OBJECTIVE: VITAL SIGNS: Temperature 96, pulse 106, respirations 18, sats are 90% on 2 L, blood pressure 130/83. CHEST: No wheezing. No crackles. CARDIAC: Normal S1 and S2. No gallops. IMPRESSION: Respiratory failure, pulmonary hypertension secondary to severe restrictive pulmonary impairment. Abnormal chest x-ray. Pulmonary embolism. I switch her over to Eliquis. Hopefully, discharge home in the next several days. Job ID: [id number]
[2020-05-21] MEDS: Apixaban 5 MG TAB PO SCH (21:31)
[2020-05-21] MEDS: Famotidine 20 MG TAB PO SCH (21:31)
--- NOTE | 2020-05-21 22:41 | PDOC.HOSPP ---
- Subjective Encounter Date: 05/21/20 Encounter Time: 15:45 Subjective: Patient seen and examined for atrial fibrillation with pulmonary embolism. Shortness of breath improving gradually. Denies any chest pain or palpitation - Objective Vital Signs & Weight: Vital Signs (12 hours) Temp Pulse Pulse Pulse Resp BP BP 05/21/20 18:58 84 16 05/21/20 15:05 97.5 F L 84 20 05/21/20 13:21 80 18 05/21/20 12:57 97.8 F 95 20 05/21/20 12:27 100 83 140/82 139/83 BP Pulse Ox Pulse Ox Pulse Ox 05/21/20 18:58 05/21/20 15:05 121/74 90 L 05/21/20 13:21 05/21/20 12:57 134/71 95 05/21/20 12:27 90 L 90 L Weight Weight 226 lb 4.8 oz I&O: 05/20/20 05/21/20 05/22/20 06:59 06:59 06:59 Intake Total 2250 720 1100 Output Total 725 350 600 Balance 1525 370 500 Result Diagrams: 05/22/20 03:44 05/22/20 03:44 EKG Reviewed by me: Yes (Atrial fibrillation) Hospitalist ROS - Review of Systems Constitutional: reports: weakness. denies: fever, chills, sweats, malaise, other Gastrointestinal: denies: nausea, vomiting, abdominal pain, diarrhea, constipation, melena, hematochezia, other - Medication Medications: Active Medications Generic Name Dose Route Start Last Admin Trade Name Freq PRN Reason Stop Dose Admin Acetaminophen 1,000 mg 05/18/20 19:40 05/18/20 21:41 Acetaminophen 500 Mg Tab PO 1,000 mg Q6H PRN Administration Mild Pain (1-3) Albuterol/Ipratropium 3 ml 05/20/20 13:00 05/21/20 18:58 Ipratropium/Albuterol Sulfate 3 Ml Neb NEB 3 ml [id number] KARY Administration Amoxicillin/Clavulanate Potassium 500 mg 05/20/20 21:00 05/21/20 21:31 Amoxicillin/Potassium Clav 500 Mg Tab PO 05/27/20 21:01 500 mg Q12HR KARY Administration Apixaban 10 mg 05/21/20 21:00 05/21/20 21:31 Apixaban 5 Mg Tab PO 10 mg BID KARY Administration Diltiazem HCl 180 mg 05/21/20 09:00 05/21/20 08:13 Diltiazem Hcl Cd 180 Mg Capsule PO 180 mg DAILY KARY Administration Famotidine 20 mg 05/19/20 21:00 05/21/20 21:31 Famotidine 20 Mg Tab PO 20 mg QPM KARY Administration Furosemide 40 mg 05/19/20 09:00 05/21/20 14:58 Furosemide 40 Mg Tab PO 40 mg 0900,1400 KARY Administration Mometasone Furoate/Formoterol Fumar 2 puff 05/20/20 18:30 05/21/20 18:58 Mometasone 200 Mcg/Formoterol 5 Mcg 120 Puff Inhaler INH 2 puff BID-RT KARY Administration Prednisone 20 mg 05/21/20 08:00 05/21/20 08:13 Prednisone 20 Mg Tab PO 20 mg QAM-WM KARY Administration Sodium Chloride 10 ml 05/18/20 19:30 05/21/20 21:31 Flush - Normal Saline 10 Ml Syringe IVF 10 ml PRN PRN Administration Saline Flush - Exam General - other findings: In mild respiratory distress Heart: no gallops, no rubs, irregular Respiratory: no wheezes, rhonchi Gastrointestinal: soft, no guarding, no rigidity Extremities: no cyanosis, 2+ LE edema Hosp A/P - Plan Atrial fibrillation with rapid ventricular response Pulmonary embolism Acute on chronic hypoxic respiratory failure due to above Chronic venous stasis/lymphedema bilateral lower extremity Morbid obesity with a BMI of 40.2 CKD stage II Chronic anemia probably due to nutritional deficiency Severe pulmonary hypertension due to restrictive pulmonary impairment Plan: Consult case finisher for home health care set up. Continue Eliquis. Continue Cardizem. Continue NIPPV nightly. Continue current dose of Lasix. Continue n ebulizer treatments with low-dose steroid per pulmonary. Recheck labs in a.m. Continue physical therapy
[2020-05-22 04:37] LABS: #Lymphocytes 0.5 thou/uL (1.20-3.40); #Monocytes 0.6 thou/uL (0.11-0.59); #Neutrophils 3.3 thou/uL (1.40-6.50); %Basophils 0.4 % (0.0-1.0); %Eosinophils 0.7 % (0.0-10.0); %Lymphocytes 11.5 % (21.0-51.0); %Monocytes 13.2 % (0.0-10.0); %Neutrophils 74.2 % (42.0-75.0); Hemoglobin 10.6 g/dL (12.0-16.0); Mean Corpuscular Hemoglobin 25.7 pg (27.0-31.0); Mean Corpuscular Volume 83.1 fL (78.0-98.0); Mean Platelet Volume 10.2 fL (7.4-10.4); Platelet Count 158 thou/uL (130-400); RBC Distribution Width 16.5 % (11.5-14.5); Red Blood Cell (RBC) Count 4.13 mill/uL (4.20-5.40); White Blood Cell (WBC) Count 4.4 thou/uL (4.8-10.8)
[2020-05-22 05:03] LABS: Anion Gap 11 mmol/L (10-20); BUN (Urea Nitrogen) 16 mg/dL (9.8-20.1); Calc. Creatinine Clearance 74 mL/min (70-130); Calcium 8.9 mg/dL (7.8-10.44); Carbon Dioxide 34 mmol/L (23-31); Chloride 98 mmol/L (98-107); Glucose 110 mg/dL (83-110); Magnesium 2.3 mg/dL (1.6-2.6); Phosphorus 3.4 mg/dL (2.3-4.7); Potassium 4.6 mmol/L (3.5-5.1); Sodium 138 mmol/L (136-145)
[2020-05-22] MEDS: Mometasone 200 MCG/Formoterol 5 MCG 120 PUFF INHALER INH SCH ×2 (07:18→18:57)
[2020-05-22] MEDS: predniSONE 20 MG TAB PO SCH (07:53)
[2020-05-22] MEDS: Apixaban 5 MG TAB PO SCH ×2 (07:53→20:55)
[2020-05-22] MEDS: Furosemide 40 MG TAB PO SCH ×2 (07:53→14:55)
[2020-05-22] MEDS: Amoxicillin/Potassium Clav 500 MG TAB PO SCH ×2 (07:54→20:55)
--- NOTE | 2020-05-22 11:09 | PRG ---
DATE OF SERVICE: 05/22/2020 SUBJECTIVE: This morning, she is better, she would like to go home. OBJECTIVE: VITAL SIGNS: Temperature 97, pulse , respirations 20, sats are 99% on 2 L, blood pressure 143/70. CHEST: No wheezing. No crackles. CARDIAC: Normal S1, S2. No gallops. ABDOMEN: No masses. LABORATORY DATA: Unremarkable. Lytes are normal. ASSESSMENT: 1. Respiratory failure, restrictive pulmonary impairment. 2. Abnormal x-ray, pulmonary hypertension, diastolic dysfunction. She is ready to be discharged home. Follow up with Dr. Mitchell in the office. Taper steroids over a week. Empiric antibiotics for 7 days. Job ID: [id number]
[2020-05-22] MEDS ORDERED: Albuterol Sulfate 2.5 mg/3 ml Neb NEB PRN (11:45)
[2020-05-22] MEDS: Famotidine 20 MG TAB PO SCH (20:55)
--- NOTE | 2020-05-22 23:15 | PDOC.HOSPP ---
- Subjective Encounter Date: 05/22/20 Encounter Time: 13:30 Subjective: Patient seen and examined for respiratory. Shortness of breath improving. Denies any chest pain, palpitations or syncope. No nausea, vomiting or fever reported. - Objective Vital Signs & Weight: Vital Signs (12 hours) Temp Pulse Resp BP Pulse Ox 05/22/20 18:55 107 H 16 90 L 05/22/20 16:00 98.0 F 79 24 H 139/71 98 05/22/20 12:00 97.3 F L 87 24 H 139/89 97 05/22/20 11:44 97.9 F 87 24 H 139/89 79 L Weight Weight 264 lb 8.875 oz I&O: 05/21/20 05/22/20 05/23/20 06:59 06:59 06:59 Intake Total 720 1450 Output Total 350 850 400 Balance 370 600 -400 Result Diagrams: 05/23/20 03:42 05/23/20 03:42 EKG Reviewed by me: Yes (Atrial fibrillation on telemetry) Hospitalist ROS - Review of Systems Respiratory: reports: SOB with excertion. denies: cough, dry, shortness of breath, hemoptysis, pleuritic pain, sputum, wheezing, other Cardiovascular: denies: chest pain, palpitations, orthopnea, paroxysmal noc. dyspnea, edema, light headedness, other - Medication Medications: Active Medications Generic Name Dose Route Start Last Admin Trade Name Freq PRN Reason Stop Dose Admin Acetaminophen 1,000 mg 05/18/20 19:40 05/18/20 21:41 Acetaminophen 500 Mg Tab PO 1,000 mg Q6H PRN Administration Mild Pain (1-3) Albuterol/Ipratropium 3 ml 05/20/20 13:00 05/22/20 18:55 Ipratropium/Albuterol Sulfate 3 Ml Neb NEB 3 ml [id number] KARY Administration Amoxicillin/Clavulanate Potassium 500 mg 05/20/20 21:00 05/22/20 20:55 Amoxicillin/Potassium Clav 500 Mg Tab PO 05/27/20 21:01 500 mg Q12HR KARY Administration Apixaban 10 mg 05/21/20 21:00 05/22/20 20:55 Apixaban 5 Mg Tab PO 10 mg BID KARY Administration Diltiazem HCl 180 mg 05/21/20 09:00 05/22/20 07:53 Diltiazem Hcl Cd 180 Mg Capsule PO 180 mg DAILY KARY Administration Famotidine 20 mg 05/19/20 21:00 05/22/20 20:55 Famotidine 20 Mg Tab PO 20 mg QPM KARY Administration Furosemide 40 mg 05/19/20 09:00 05/22/20 14:55 Furosemide 40 Mg Tab PO 40 mg 0900,1400 KARY Administration Mometasone Furoate/Formoterol Fumar 2 puff 05/20/20 18:30 05/22/20 18:57 Mometasone 200 Mcg/Formoterol 5 Mcg 120 Puff Inhaler INH 2 puff BID-RT KARY Administration Prednisone 20 mg 05/21/20 08:00 05/22/20 07:53 Prednisone 20 Mg Tab PO 20 mg QAM-WM KARY Administration Sodium Chloride 10 ml 05/18/20 19:30 05/21/20 21:31 Flush - Normal Saline 10 Ml Syringe IVF 10 ml PRN PRN Administration Saline Flush - Exam General Appearance: NAD Neck: supple, no JVD Heart: no gallops, irregular Respiratory: no rales, rhonchi Gastrointestinal: soft, non-distended Extremities: no cyanosis Neurological: no new deficit Psychiatric: normal affect, A&O x 3 Hosp A/P - Plan Atrial fibrillation with rapid ventricular response Pulmonary embolism Acute on chronic hypoxic respiratory failure due to above Chronic venous stasis/lymphedema bilateral lower extremity Morbid obesity with a BMI of 40.2 CKD stage II Chronic anemia probably due to nutritional deficiency Severe pulmonary hypertension due to restrictive pulmonary impairment Plan: Continue Eliquis. Patient understands the risk not limited to life-threatening bleeding. Continue Cardizem with Augmentin and prednisone. DC home in 24 hours if stable. Home health care set up.
[2020-05-23 04:55] LABS: #Eosinphils 0.1 thou/uL (0.0-0.7); #Lymphocytes 0.5 thou/uL (1.20-3.40); #Monocytes 0.5 thou/uL (0.11-0.59); %Basophils 0.3 % (0.0-1.0); %Lymphocytes 8.9 % (21.0-51.0); %Monocytes 9.3 % (0.0-10.0); %Neutrophils 80.4 % (42.0-75.0); Hemoglobin 10.8 g/dL (12.0-16.0); Mean Corpuscular HGB CONC 30.5 g/dL (32.0-36.0); Mean Corpuscular Hemoglobin 25.8 pg (27.0-31.0); Mean Corpuscular Volume 84.8 fL (78.0-98.0); Mean Platelet Volume 9.9 fL (7.4-10.4); Platelet Count 164 thou/uL (130-400); RBC Distribution Width 16.4 % (11.5-14.5); Red Blood Cell (RBC) Count 4.19 mill/uL (4.20-5.40)
[2020-05-23 05:17] LABS: Anion Gap 10 mmol/L (10-20); BUN (Urea Nitrogen) 17 mg/dL (9.8-20.1); Calc. Creatinine Clearance 92 mL/min (70-130); Calcium 8.8 mg/dL (7.8-10.44); Carbon Dioxide 36 mmol/L (23-31); Chloride 100 mmol/L (98-107); Glucose 107 mg/dL (83-110); Magnesium 2.2 mg/dL (1.6-2.6); Phosphorus 3.4 mg/dL (2.3-4.7); Potassium 4.8 mmol/L (3.5-5.1); Sodium 141 mmol/L (136-145)
[2020-05-23] MEDS: Furosemide 40 MG TAB PO SCH ×2 (08:49→14:07)
[2020-05-23] MEDS: predniSONE 20 MG TAB PO SCH (08:49)
[2020-05-23] MEDS: Apixaban 5 MG TAB PO SCH (08:49)
[2020-05-23] MEDS: Amoxicillin/Potassium Clav 500 MG TAB PO SCH (08:49)
[2020-05-23] MEDS: Mometasone 200 MCG/Formoterol 5 MCG 120 PUFF INHALER INH SCH (09:04)
--- NOTE | 2020-05-23 09:57 | PRG ---
DATE OF SERVICE: 05/23/2020 SUBJECTIVE: She is doing well. OBJECTIVE: VITAL SIGNS: Temperature 97, pulse 80, respirations 18, sats 95% on 2 L, blood pressure 120/65. CHEST: No wheezing. No crackles. CARDIAC: Normal S1. ABDOMEN: No masses. LABORATORY DATA: Unremarkable. ASSESSMENT: 1. Chronic obstructive pulmonary disease exacerbation. 2. Pulmonary hypertension. 3. Diastolic dysfunction. PLAN: She can be discharged home. Follow up with Dr. Mitchell. Taper steroids over a week or two. Job ID: [id number]
[2020-05-23 11:30] VITALS: TEMP 98.6
[2020-05-23 11:41] VITALS: BP 132/73
--- NOTE | 2020-05-23 18:42 | PDOC.DS.DS ---
Provider - Provider Date of Admission: 05/18/20 16:02 Date of Discharge: 05/23/20 Admitting Provider: Matt Mcnamara DO Consultations: Cardiology, Pulmonary Primary Care Physician: Zana Li MD Course - Hospital Course Hospital Course: Patient is a 85-year-old female with hypertension, chronic respiratory failure on home oxygen as well as nocturnal NIPPV as well as morbid obesity presented to the emergency room on 05/18 with worsening shortness of breath. Her initial O2 saturation was 90% on [address] angiogram of the chest was consistent with pulmonary embolism in the posterior medial branches of the right lower lobe along with left-sided pleural effusion. She was also found to have atrial fibrillation with rapid ventricular response. Please refer to the history and physical for further details. The patient was admitted to the telemetry unit with above diagnosis. She was started on Cardizem along with anticoagulation. Patient was evaluated by cardiology and pulmonary. Echocardiogram showed ejection fraction 55 to 60% with mild tricuspid regurgitation and pulmonary hypertension with moderately dilated left atrium and moderately enlarged right atrium. Lovenox was then transition to Eliquis. Cardizem has been transitioned to oral. She was also started on antibiotics for COPD exacerbation. She declined pen[facility]iary facility placement. She will be discharged home with home health care. Patient understands the risk associated with anticoagulation not limited to life- threatening bleeding. Final diagnosis: Atrial fibrillation with rapid ventricular response Pulmonary embolism Acute on chronic hypoxic respiratory failure COPD exacerbation Chronic venous stasis/lymphedema bilateral lower extremity Morbid obesity with a BMI of 40.2 CKD stage II Chronic anemia probably due to nutritional deficiency Severe pulmonary hypertension due to restrictive pulmonary impairment Resuscitation Status: 05/18/20 16:42 Resuscitation Status Routine Resuscitation Status: FULL: Full Resuscitation - Labs Lab Results: 05/23/20 03:42 05/23/20 03:42 Abnormal Lab Results - Last 48 hrs 05/22/20 03:44: Carbon Dioxide 34 H 05/22/20 03:44: WBC 4.4 L, RBC 4.13 L, Hgb 10.6 L, Hct 34.3 L, MCH 25.7 L, MCHC 31.0 L, RDW 16.5 H, Lymphocytes % 11.5 L, Monocytes % 13.2 H, Lymphocytes # 0.5 L, Monocytes # 0.6 H 05/23/20 03:42: Carbon Dioxide 36 H 05/23/20 03:42: RBC 4.19 L, Hgb 10.8 L, Hct 35.6 L, MCH 25.8 L, MCHC 30.5 L, RDW 16.4 H, Neutrophils % 80.4 H, Lymphocytes % 8.9 L, Lymphocytes # 0.5 L Microbiology - Entire Visit 05/20/20 Unknown Sputum Respiratory Culture - Final - Physical Exam Vitals: Vital Signs (12 hours) Temp Pulse Pulse Resp BP BP Pulse Ox 05/23/20 13:39 18 93 L 05/23/20 11:29 98.6 F 78 20 128/64 93 L 05/23/20 09:39 78 132/73 05/23/20 09:04 69 18 95 05/23/20 07:30 97.6 F 89 20 121/65 94 L Pulse Ox Pulse Ox Pulse Ox 05/23/20 13:39 05/23/20 11:29 05/23/20 09:39 86 L 96 90 L 05/23/20 09:04 05/23/20 07:30 Weight Weight 264 lb 8.875 oz Physical Exam: The patient was seen and examined on the day of discharge. Plan - Discharge Medications Prescriptions: Amoxicillin/Potassium Clav [Augmentin] 500 mg PO Q12HR #12 tab Diltiazem HCl [Cardizem CD] 180 mg PO DAILY #30 cap Apixaban [Eliquis] 5 mg PO ASDIR #76 tablet predniSONE 10 mg PO ASDIR #10 tab Home Medications: Medication Instructions Recorded Confirmed Type Cyanocobalamin (Vitamin B-12) 1,000 mcg SC ASDIR 11/05/14 05/18/20 History [Cyanocobalamin Injection] Albuterol Sulfate HFA (OR) 2 puff INH Q4H PRN 05/12/19 05/18/20 History [Proventil Hfa (or)] Furosemide 40 mg PO DAILY 05/12/19 05/18/20 History Amoxicillin/Potassium Clav 500 mg PO Q12HR #12 tab 05/23/20 Rx [Augmentin] Apixaban [Eliquis] 5 mg PO ASDIR #76 tablet 05/23/20 Rx Diltiazem HCl [Cardizem CD] 180 mg PO DAILY #30 cap 05/23/20 Rx predniSONE 10 mg PO ASDIR #10 tab 05/23/20 Rx Allergies: ciprofloxacin [From Cipro] Allergy (Verified 05/18/20 19:56) Short of Breath piroxicam Allergy (Verified 05/18/20 19:56) Rash - Follow up Plan Referrals: [facility] [facility], [facility] [Other] (Fdc with Physical therapy services.) Wicho Ferrell MD [Active] - 3-4 Weeks (Please call office to schedule an appointment.) Aidan Mithcell MD [Active] - 2-3 Weeks (Please call office to schedule an appointment.) Zana Li MD [Primary Care Provider] - 7 Days (Please call office to schedule an appointment.) Disposition: HOME HEALTH Quality - Care Measures CORE MEASURES:: N/A
--- NOTE | 2020-05-24 16:12 | EKG ---
Test Reason : Blood Pressure : / mmHG Vent. Rate : 107 BPM Atrial Rate : 105 BPM P-R Int : 000 ms QRS Dur : 150 ms QT Int : 402 ms P-R-T Axes : 000 155 -18 degrees QTc Int : 536 ms Atrial fibrillation with rapid ventricular response with premature ventricular or aberrantly conducte d complexes Right bundle branch block T wave abnormality, consider inferior ischemia Abnormal ECG Confirmed by CECILIA ORELLANA MD ([id number]), associate editor REGLA ZUÑIGA ([id number]) on 05/24/2020 4:12:14 PM Referred By: Confirmed By:CECILIA ORELLANA MD
== END 2020-05-23 14:11 | disposition home health service (06) | DRG 175 ==
LOC: ERS 13:12 → ERHOLD 16:02 → 2NO 19:00
PROVIDERS: ADMIT Family Medicine; ATTEND Internal Medicine
PROC: 5A09357 Assistance with Respiratory Ventilation, Less than 24 Consecutive Hours, Continuous Positive Airway Pressure (ICD-10-PCS; principal; 2020-05-18)
DX: I26.99 Other pulmonary embolism without acute cor pulmonale (principal); Q33.3 Agenesis of lung; J96.21 Acute and chronic respiratory failure with hypoxia; I50.33 Acute on chronic diastolic (congestive) heart failure; J96.22 Acute and chronic respiratory failure with hypercapnia; Z68.41 Body mass index [BMI] 40.0-44.9, adult; J44.1 Chronic obstructive pulmonary disease with (acute) exacerbation; I13.0 Hypertensive heart and chronic kidney disease with heart failure and stage 1 through stage 4 chronic kidney disease, or unspecified chronic kidney disease; Z23 Encounter for immunization; Z20.828 Contact with and (suspected) exposure to other viral communicable diseases; I87.8 Other specified disorders of veins; K21.9 Gastro-esophageal reflux disease without esophagitis; I48.0 Paroxysmal atrial fibrillation; I25.10 Atherosclerotic heart disease of native coronary artery without angina pectoris; I87.2 Venous insufficiency (chronic) (peripheral); I27.23 Pulmonary hypertension due to lung diseases and hypoxia; E66.01 Morbid (severe) obesity due to excess calories; J98.4 Other disorders of lung; N18.2 Chronic kidney disease, stage 2 (mild); D53.9 Nutritional anemia, unspecified; I08.1 Rheumatic disorders of both mitral and tricuspid valves; Z99.81 Dependence on supplemental oxygen; Z86.718 Personal history of other venous thrombosis and embolism; Z90.49 Acquired absence of other specified parts of digestive tract; Z90.710 Acquired absence of both cervix and uterus; Z79.899 Other long term (current) drug therapy; Z79.82 Long term (current) use of aspirin; Z88.1 Allergy status to other antibiotic agents; Z88.8 Allergy status to other drugs, medicaments and biological substances; Z99.89 Dependence on other enabling machines and devices
CPT/HCPCS: 36415; 71275; 80048; 82550; 83690; 83735; 83880; 84100; 84443; 85025; 85379; 87070; 87205; 87635; 93005; 93306; 93970; 94640; 96365; 96366; 96372; 96375; J1160; J1650; J1940; J3475; J3490; J7512; J7620; Q9967; U0003

== ENCOUNTER 2020-08-21 08:03 | Inpatient (IN) | payer MEDICARE ==
[2020-08-21 09:23] LABS: #Basophils 0.1 thou/uL (0.0-0.2); #Lymphocytes 0.2 thou/uL (1.20-3.40); #Monocytes 0.6 thou/uL (0.11-0.59); #Neutrophils 12.7 thou/uL (1.40-6.50); %Basophils 1.1 % (0.0-1.0); %Eosinophils 0.1 % (0.0-10.0); %Lymphocytes 1.6 % (21.0-51.0); %Monocytes 4.2 % (0.0-10.0); Hemoglobin 11.8 g/dL (12.0-16.0); Mean Corpuscular Volume 77.5 fL (78.0-98.0); Mean Platelet Volume 10.4 fL (7.4-10.4); Platelet Count 181 thou/uL (130-400); RBC Distribution Width 17.2 % (11.5-14.5); White Blood Cell (WBC) Count 13.6 thou/uL (4.8-10.8)
[2020-08-21 09:36] LABS: INR-International Normal Ratio 1.9; PTT 34.4 sec (22.9-36.1); Prothrombin Time 21.7 sec (12.0-14.7)
[2020-08-21] MEDS ORDERED: Furosemide 40 MG/4 ML VIAL ONE (10:07)
[2020-08-21 10:08] LABS: CKMB 1.3 ng/mL (0-6.6)
[2020-08-21 10:15] LABS: ALT (SGPT) 15 U/L (8-55); AST (SGOT) 31 U/L (5-34); Albumin 4.1 g/dL (3.4-4.8); Alkaline Phosphatase 80 U/L (40-110); BUN (Urea Nitrogen) 38 mg/dL (9.8-20.1); Bilirubin, Total 6.9 mg/dL (0.2-1.2); Calc. Creatinine Clearance 0 mL/min (70-130); Calcium 9.7 mg/dL (7.8-10.44); Globulin 1.6 g/dL (2.4-3.5); Glucose 103 mg/dL (83-110); Protein, Total 5.7 g/dL (5.8-8.1)
[2020-08-21 10:21] LABS: Carbon Dioxide Greater than 37 mmol/L (23-31); Chloride 72 mmol/L (98-107); Potassium 2.5 mmol/L (3.5-5.1); Sodium 135 mmol/L (136-145)
[2020-08-21] MEDS ORDERED: Potassium Chloride 20 MEQ TAB ONE ×2 (10:48→14:34)
[2020-08-21] MEDS ORDERED: Vancomycin 1 GM/200 ML BAG ONE (10:48)
[2020-08-21] MEDS ORDERED: Cefepime 2 GM VIAL ONE (10:48)
[2020-08-21] MEDS ORDERED: Acetaminophen 500 MG TAB ONE (10:53)
[2020-08-21 11:30] LABS: Phosphorus 2.8 mg/dL (2.3-4.7)
[2020-08-21 13:29] LABS: Analyzer IN Cardio ER; Base Excess 19.7 mEq/L (-2.0 to +3.0); Calcium, Ionized (venous) 0.99 mmol/L (1.16-1.32); Chloride (VBG) 76 mmol/L (98-106); Hemoglobin (Hb) 11.9 g/dL (11.7-16.1); Potassium (VBG) 2.25 mmol/L (3.70-5.30); Sodium 126.3 mmol/L (133-146); pH (venous) 7.58 (7.32-7.43)
[2020-08-21 13:30] LABS: Actual Bicarbonate (HCO3v) 44 mEq/L (22-28)
[2020-08-21 13:46] LABS: BUN (Urea Nitrogen) 37 mg/dL (9.8-20.1); Calc. Creatinine Clearance 0 mL/min (70-130); Calcium 9.2 mg/dL (7.8-10.44); Glucose 118 mg/dL (83-110)
[2020-08-21 13:47] LABS: Digoxin 1.32 ng/mL (0.8-2.0)
[2020-08-21 13:48] LABS: ALT (SGPT) 13 U/L (8-55); AST (SGOT) 27 U/L (5-34); Albumin 3.5 g/dL (3.4-4.8); Alkaline Phosphatase 71 U/L (40-110); Bilirubin, Direct 3.5 mg/dL (0.1-0.3); Bilirubin, Total 6.4 mg/dL (0.2-1.2); Protein, Total 5.1 g/dL (5.8-8.1)
[2020-08-21 13:55] LABS: Anion Gap 18 mmol/L (10-20); Sodium 134 mmol/L (136-145)
[2020-08-21 13:59] LABS: Carbon Dioxide 45 mmol/L (23-31); Chloride 73 mmol/L (98-107); Potassium 2.2 mmol/L (3.5-5.1)
[2020-08-21] MEDS ORDERED: Potassium Chloride 20 MEQ/100 ML PREMIX BAG ONE (14:07)
[2020-08-21] MEDS ORDERED: Calcium Carbonate 500 MG ChewTAB PO PRN (14:20)
[2020-08-21] MEDS ORDERED: NS 0.9% w/ 40 MEQ KCL 1,000 ML IV SCH (14:30)
[2020-08-21] MEDS ORDERED: Iopamidol-370 76% 500 ML 1 ML ONE (14:44)
[2020-08-21] MEDS: Potassium Chloride 20 MEQ in Premix Bag 1 BAG IVPB SCH (17:57)
[2020-08-21 18:42] LABS: BUN (Urea Nitrogen) 36 mg/dL (9.8-20.1); Calc. Creatinine Clearance 55 mL/min (70-130); Calcium 8.8 mg/dL (7.8-10.44); Glucose 106 mg/dL (83-110)
[2020-08-21 18:51] LABS: Anion Gap 16 mmol/L (10-20); Chloride 76 mmol/L (98-107); Sodium 134 mmol/L (136-145)
[2020-08-21 18:56] LABS: Carbon Dioxide 45 mmol/L (23-31)
[2020-08-21 18:59] LABS: CKMB 1.2 ng/mL (0-6.6)
[2020-08-21] MEDS ORDERED: Potassium Chloride 20 MEQ TAB PO SCH (19:30)
[2020-08-21] MEDS ORDERED: Vancomycin 1 GM in Premix Bag 1 BAG IVPB SCH (19:30)
[2020-08-21] MEDS ORDERED: Potassium Chloride 20 MEQ/100 ML PREMIX BAG IVPB SCH (19:30)
[2020-08-21] MEDS: Famotidine 20 MG TAB PO SCH (20:36)
[2020-08-21] MEDS: Apixaban 2.5 MG TAB PO SCH (20:36)
[2020-08-21] MEDS ORDERED: Potassium Bicarbonate/Cit Ac 20 MEQ TAB PO SCH (21:00)
[2020-08-21] MEDS: Cefepime 1 GM in Sodium Chloride 0.9% 100 ML IVPB SCH (22:32)
[2020-08-22 01:02] LABS: BUN (Urea Nitrogen) 37 mg/dL (9.8-20.1); Calc. Creatinine Clearance 56 mL/min (70-130); Calcium 8.7 mg/dL (7.8-10.44); Glucose 119 mg/dL (83-110)
[2020-08-22 01:11] LABS: Anion Gap 18 mmol/L (10-20); Carbon Dioxide 40 mmol/L (23-31); Chloride 78 mmol/L (98-107); Potassium 3.2 mmol/L (3.5-5.1); Sodium 133 mmol/L (136-145)
[2020-08-22 03:56] LABS: #Lymphocytes 0.4 thou/uL (1.20-3.40); #Monocytes 0.8 thou/uL (0.11-0.59); %Basophils 0.1 % (0.0-1.0); %Eosinophils 0.1 % (0.0-10.0); %Lymphocytes 3.7 % (21.0-51.0); %Monocytes 7.6 % (0.0-10.0); %Neutrophils 88.4 % (42.0-75.0); Hemoglobin 10.5 g/dL (12.0-16.0); Mean Corpuscular HGB CONC 31.3 g/dL (32.0-36.0); Mean Corpuscular Hemoglobin 24.4 pg (27.0-31.0); Mean Corpuscular Volume 77.9 fL (78.0-98.0); Mean Platelet Volume 10.7 fL (7.4-10.4); Platelet Count 157 thou/uL (130-400); RBC Distribution Width 17.1 % (11.5-14.5); Red Blood Cell (RBC) Count 4.32 mill/uL (4.20-5.40); White Blood Cell (WBC) Count 10.2 thou/uL (4.8-10.8)
[2020-08-22 04:14] LABS: ALT (SGPT) 12 U/L (8-55); AST (SGOT) 23 U/L (5-34); Albumin 3.2 g/dL (3.4-4.8); Alkaline Phosphatase 65 U/L (40-110); BUN (Urea Nitrogen) 36 mg/dL (9.8-20.1); Bilirubin, Total 4.5 mg/dL (0.2-1.2); Calc. Creatinine Clearance 60 mL/min (70-130); Calcium 8.9 mg/dL (7.8-10.44); Globulin 1.7 g/dL (2.4-3.5); Glucose 101 mg/dL (83-110); Magnesium 2.4 mg/dL (1.6-2.6); Protein, Total 4.9 g/dL (5.8-8.1)
[2020-08-22 04:15] LABS: Phosphorus 2.8 mg/dL (2.3-4.7)
[2020-08-22 04:23] LABS: Anion Gap 20 mmol/L (10-20); Carbon Dioxide 38 mmol/L (23-31); Chloride 79 mmol/L (98-107); Potassium 3.1 mmol/L (3.5-5.1); Sodium 134 mmol/L (136-145)
[2020-08-22 04:36] LABS: HBCM Index 0.05 S/CO (0-0.79); Hep A IgM AB Non-Reactive (NonReactive); Hep A IgM S/CO 0.08 S/CO (0-0.79); Hep B Surf Ag Non-Reactive S/CO (NonReactive); Hep C IgG Ab Non-Reactive (NonReactive); Hep C Index 0.09 S/CO (0-0.79); Hepatitis B Core IgM Abs Non-Reactive (NonReactive)
[2020-08-22 05:12] LABS: SARS-CoV-2 PCR by NAA Not Detected (NotDetected)
[2020-08-22] MEDS ORDERED: Electrolyte Replacement Protocol 1 EACH FS SCH (07:45)
[2020-08-22] MEDS: Apixaban 2.5 MG TAB PO SCH ×2 (08:45→20:27)
[2020-08-22] MEDS: Potassium Chloride 20 MEQ in Premix Bag 1 BAG IVPB SCH ×2 (08:46→10:41)
[2020-08-22] MEDS: Cefepime 1 GM in Sodium Chloride 0.9% 100 ML IVPB SCH (10:41)
[2020-08-22 11:49] VITALS: BMI 33.8
[2020-08-22] MEDS: cefTRIAXone\\ROCEPHIN 1 GM in Sodium Chloride 0.9% 100 ML IVPB SCH (20:27)
[2020-08-22] MEDS: Famotidine 20 MG TAB PO SCH (20:27)
[2020-08-22] MEDS ORDERED: VANCOMYCIN 1.25 GM/250 ML BAG 1.25 GM in Premix Bag 1 BAG IVPB SCH (21:00)
[2020-08-23 04:34] LABS: #Lymphocytes 0.5 thou/uL (1.20-3.40); #Monocytes 0.7 thou/uL (0.11-0.59); %Basophils 0.2 % (0.0-1.0); %Eosinophils 0.5 % (0.0-10.0); %Lymphocytes 7.2 % (21.0-51.0); %Monocytes 9.2 % (0.0-10.0); %Neutrophils 82.9 % (42.0-75.0); Mean Corpuscular HGB CONC 30.2 g/dL (32.0-36.0); Mean Corpuscular Hemoglobin 23.7 pg (27.0-31.0); Mean Corpuscular Volume 78.4 fL (78.0-98.0); Mean Platelet Volume 10.6 fL (7.4-10.4); Platelet Count 148 thou/uL (130-400); RBC Distribution Width 17.5 % (11.5-14.5); Red Blood Cell (RBC) Count 4.22 mill/uL (4.20-5.40); White Blood Cell (WBC) Count 7.3 thou/uL (4.8-10.8)
[2020-08-23 04:58] LABS: Phosphorus 2.6 mg/dL (2.3-4.7)
[2020-08-23 05:04] LABS: ALT (SGPT) 11 U/L (8-55); AST (SGOT) 17 U/L (5-34); Albumin 3.2 g/dL (3.4-4.8); Alkaline Phosphatase 60 U/L (40-110); BUN (Urea Nitrogen) 33 mg/dL (9.8-20.1); Bilirubin, Total 2.9 mg/dL (0.2-1.2); Calc. Creatinine Clearance 66 mL/min (70-130); Calcium 8.8 mg/dL (7.8-10.44); Globulin 1.7 g/dL (2.4-3.5); Glucose 117 mg/dL (83-110); Magnesium 2.5 mg/dL (1.6-2.6); Protein, Total 4.9 g/dL (5.8-8.1)
[2020-08-23 05:13] LABS: Anion Gap 15 mmol/L (10-20); Chloride 82 mmol/L (98-107); Potassium 3.2 mmol/L (3.5-5.1); Sodium 135 mmol/L (136-145)
[2020-08-23 05:17] LABS: Carbon Dioxide 41 mmol/L (23-31)
[2020-08-23] MEDS ORDERED: Sodium Chloride 0.9% 1,000 ML IV SCH (05:45)
[2020-08-23] MEDS ORDERED: Potassium Chloride 20 MEQ TAB PO SCH (07:00)
[2020-08-23] MEDS ORDERED: Acetaminophen 650 MG/20.3 ML UDCUP PO PRN (08:20)
[2020-08-23] MEDS: Apixaban 2.5 MG TAB PO SCH ×2 (08:55→20:24)
[2020-08-23] MEDS: Acetaminophen 325 MG TAB PO PRN (08:56)
[2020-08-23] MEDS ORDERED: AcetaZOLAMIDE 250 MG TAB PO SCH (10:30)
[2020-08-23] MEDS ORDERED: Furosemide 40 MG/4 ML VIAL SLOW IVP SCH (10:45)
[2020-08-23] MEDS: Famotidine 20 MG TAB PO SCH (20:23)
[2020-08-23] MEDS: AcetaZOLAMIDE 250 MG TAB PO SCH (20:24)
[2020-08-23] MEDS: cefTRIAXone\\ROCEPHIN 1 GM in Sodium Chloride 0.9% 100 ML IVPB SCH (20:24)
[2020-08-24 04:59] LABS: #Eosinphils 0.1 thou/uL (0.0-0.7); #Lymphocytes 0.6 thou/uL (1.20-3.40); #Monocytes 0.8 thou/uL (0.11-0.59); #Neutrophils 4.1 thou/uL (1.40-6.50); %Basophils 0.2 % (0.0-1.0); %Eosinophils 1.9 % (0.0-10.0); %Monocytes 13.5 % (0.0-10.0); %Neutrophils 73.4 % (42.0-75.0); Hemoglobin 10.2 g/dL (12.0-16.0); Mean Corpuscular HGB CONC 31.9 g/dL (32.0-36.0); Mean Corpuscular Hemoglobin 25.2 pg (27.0-31.0); Mean Corpuscular Volume 79.2 fL (78.0-98.0); Platelet Count 155 thou/uL (130-400); RBC Distribution Width 17.5 % (11.5-14.5); Red Blood Cell (RBC) Count 4.03 mill/uL (4.20-5.40); White Blood Cell (WBC) Count 5.6 thou/uL (4.8-10.8)
[2020-08-24 05:25] LABS: ALT (SGPT) 11 U/L (8-55); AST (SGOT) 17 U/L (5-34); Albumin 3.1 g/dL (3.4-4.8); Alkaline Phosphatase 58 U/L (40-110); BUN (Urea Nitrogen) 30 mg/dL (9.8-20.1); Bilirubin, Total 1.9 mg/dL (0.2-1.2); Calc. Creatinine Clearance 76 mL/min (70-130); Calcium 8.8 mg/dL (7.8-10.44); Globulin 1.8 g/dL (2.4-3.5); Glucose 112 mg/dL (83-110); Protein, Total 4.9 g/dL (5.8-8.1)
[2020-08-24 05:34] LABS: Anion Gap 18 mmol/L (10-20); Carbon Dioxide 35 mmol/L (23-31); Chloride 84 mmol/L (98-107); Sodium 134 mmol/L (136-145)
[2020-08-24 05:37] LABS: Potassium 2.9 mmol/L (3.5-5.1)
[2020-08-24] MEDS ORDERED: Potassium Chloride 20 MEQ TAB PO SCH ×2 (06:15→11:45)
[2020-08-24] MEDS: Potassium Chloride 20 MEQ in Premix Bag 1 BAG IVPB SCH ×2 (06:25→09:59)
[2020-08-24] MEDS: Furosemide 40 MG/4 ML VIAL SLOW IVP SCH (08:23)
[2020-08-24] MEDS: AcetaZOLAMIDE 250 MG TAB PO SCH ×2 (08:23→21:58)
[2020-08-24] MEDS: Apixaban 2.5 MG TAB PO SCH ×2 (08:23→21:58)
[2020-08-24 13:36] LABS: Potassium 3.6 mmol/L (3.5-5.1)
[2020-08-24] MEDS: Famotidine 20 MG TAB PO SCH (21:58)
[2020-08-24] MEDS: cefTRIAXone\\ROCEPHIN 1 GM in Sodium Chloride 0.9% 100 ML IVPB SCH (21:58)
[2020-08-25 04:42] LABS: Hemoglobin 10.3 g/dL (12.0-16.0); Mean Corpuscular HGB CONC 30.5 g/dL (32.0-36.0); Mean Corpuscular Hemoglobin 24.1 pg (27.0-31.0); Mean Corpuscular Volume 78.8 fL (78.0-98.0); Mean Platelet Volume 10.3 fL (7.4-10.4); Platelet Count 167 thou/uL (130-400); RBC Distribution Width 17.7 % (11.5-14.5); White Blood Cell (WBC) Count 4.7 thou/uL (4.8-10.8)
[2020-08-25 05:03] LABS: ALT (SGPT) 11 U/L (8-55); AST (SGOT) 16 U/L (5-34); Alkaline Phosphatase 59 U/L (40-110); BUN (Urea Nitrogen) 27 mg/dL (9.8-20.1); Bilirubin, Total 1.4 mg/dL (0.2-1.2); Calc. Creatinine Clearance 79 mL/min (70-130); Calcium 8.6 mg/dL (7.8-10.44); Globulin 2.1 g/dL (2.4-3.5); Glucose 112 mg/dL (83-110); Protein, Total 5.1 g/dL (5.8-8.1)
[2020-08-25 05:04] LABS: Band 6 % (5-11); Eosinophils 10 % (0-10); Lymphocytes 8 % (21-51); MDiff Complete? YES; Metamyelocyte 1 % (0-0); Monocytes 14 % (0-10); Neutrophil 57 % (42-75); Platelet Morphology Comment Appears Adequate; Reactive Lymphocytes 4 % (0-10)
[2020-08-25 05:12] LABS: Anion Gap 16 mmol/L (10-20); Carbon Dioxide 34 mmol/L (23-31); Chloride 90 mmol/L (98-107); Potassium 3.3 mmol/L (3.5-5.1); Sodium 137 mmol/L (136-145)
[2020-08-25] MEDS ORDERED: Potassium Chloride 20 MEQ TAB PO SCH (05:45)
[2020-08-25] MEDS: AcetaZOLAMIDE 250 MG TAB PO SCH ×2 (08:57→21:35)
[2020-08-25] MEDS: Furosemide 40 MG/4 ML VIAL SLOW IVP SCH (08:57)
[2020-08-25] MEDS: Apixaban 2.5 MG TAB PO SCH ×2 (08:57→21:35)
[2020-08-25] MEDS: Acetaminophen 325 MG TAB PO PRN ×2 (14:57→21:36)
[2020-08-25] MEDS: Famotidine 20 MG TAB PO SCH (21:35)
[2020-08-25] MEDS: cefTRIAXone\\ROCEPHIN 1 GM in Sodium Chloride 0.9% 100 ML IVPB SCH (21:35)
[2020-08-26 04:49] LABS: Mean Corpuscular HGB CONC 31.2 g/dL (32.0-36.0); Mean Corpuscular Hemoglobin 24.6 pg (27.0-31.0); Mean Corpuscular Volume 78.8 fL (78.0-98.0); Mean Platelet Volume 10.7 fL (7.4-10.4); Platelet Count 168 thou/uL (130-400); RBC Distribution Width 17.6 % (11.5-14.5); Red Blood Cell (RBC) Count 4.08 mill/uL (4.20-5.40); White Blood Cell (WBC) Count 4.8 thou/uL (4.8-10.8)
[2020-08-26 05:09] LABS: Band 1 % (5-11); Hypochromia SLIGHT = 6-15 cells (100X) (0-5/hpf); Lymphocytes 6 % (21-51); MDiff Complete? YES; Monocytes 18 % (0-10); Neutrophil 75 % (42-75); Platelet Morphology Comment Appears Adequate
[2020-08-26 05:09] LABS: ALT (SGPT) 11 U/L (8-55); AST (SGOT) 14 U/L (5-34); Albumin 2.9 g/dL (3.4-4.8); Alkaline Phosphatase 58 U/L (40-110); Anion Gap 12 mmol/L (10-20); BUN (Urea Nitrogen) 26 mg/dL (9.8-20.1); Bilirubin, Total 1.3 mg/dL (0.2-1.2); Calc. Creatinine Clearance 82 mL/min (70-130); Calcium 8.6 mg/dL (7.8-10.44); Carbon Dioxide 36 mmol/L (23-31); Chloride 91 mmol/L (98-107); Glucose 108 mg/dL (83-110); Potassium 3.2 mmol/L (3.5-5.1); Protein, Total 4.9 g/dL (5.8-8.1); Sodium 136 mmol/L (136-145)
[2020-08-26] MEDS ORDERED: Potassium Chloride 20 MEQ TAB PO SCH (06:30)
[2020-08-26] MEDS: Furosemide 40 MG/4 ML VIAL SLOW IVP SCH (08:11)
[2020-08-26] MEDS: AcetaZOLAMIDE 250 MG TAB PO SCH (08:11)
[2020-08-26] MEDS: Apixaban 2.5 MG TAB PO SCH (08:11)
[2020-08-26] MEDS: Acetaminophen 325 MG TAB PO PRN (08:13)
[2020-08-26 17:45] VITALS: BP 125/68; TEMP 97.6
[2020-08-26] MEDS ORDERED: Cephalexin 250 MG CAP PO SCH (18:00)
[2020-08-29 13:51] LABS: ANA Symphony (Qualitative) Negative (Negative); ANA Symphony (Quantitative) 0.2 Ratio (< 0.7 Negative); EliA Vaculitis New Method **** NEW METHOD ****; Mitochondrial Ab 0.9 U/mL (<4 Negative); dsDNA IgG Antibody 6.2 IU/mL (<10 Negative)
== END 2020-08-26 18:38 | disposition swing bed (61) | DRG 872 ==
LOC: ERS 08:03 → IMCU/EMU 14:23 → 2NO 08-22 21:10
PROVIDERS: ADMIT Internal Medicine; ATTEND Internal Medicine
DX: A41.9 Sepsis, unspecified organism (principal); J96.11 Chronic respiratory failure with hypoxia; L03.115 Cellulitis of right lower limb; E87.3 Alkalosis; I42.9 Cardiomyopathy, unspecified; E87.1 Hypo-osmolality and hyponatremia; N17.9 Acute kidney failure, unspecified; I50.32 Chronic diastolic (congestive) heart failure; I48.0 Paroxysmal atrial fibrillation; R65.20 Severe sepsis without septic shock; Z79.01 Long term (current) use of anticoagulants; J44.9 Chronic obstructive pulmonary disease, unspecified; Z99.81 Dependence on supplemental oxygen; Z88.1 Allergy status to other antibiotic agents; E66.01 Morbid (severe) obesity due to excess calories; D64.9 Anemia, unspecified; N18.30 Chronic kidney disease, stage 3 unspecified; Z90.49 Acquired absence of other specified parts of digestive tract; Z90.710 Acquired absence of both cervix and uterus; Z82.49 Family history of ischemic heart disease and other diseases of the circulatory system; E87.6 Hypokalemia; R94.5 Abnormal results of liver function studies; Z86.711 Personal history of pulmonary embolism; K76.1 Chronic passive congestion of liver; I27.21 Secondary pulmonary arterial hypertension; T50.2X5A Adverse effect of carbonic-anhydrase inhibitors, benzothiadiazides and other diuretics, initial encounter; I27.81 Cor pulmonale (chronic); Z68.34 Body mass index [BMI] 34.0-34.9, adult
CPT/HCPCS: 36415; 71275; 76705; 80048; 80053; 80074; 80162; 82553; 82805; 83516; 83735; 83880; 84100; 84484; 85025; 85610; 85652; 85730; 86038; 86140; 86225; 87635; 93005; 93306; 96365; 96366; 96367; 96375; J0692; J0696; J1940; J3370; J3480; J3490; J7620; Q9967; U0003; U0005

== ENCOUNTER 2020-09-04 12:48 | Inpatient (IN) | payer MEDICARE ==
[2020-09-04 15:13] LABS: Anion Gap 14 mmol/L (10-20); BUN (Urea Nitrogen) 40 mg/dL (9.8-20.1); Calc. Creatinine Clearance 0 mL/min (70-130); Calcium 9.3 mg/dL (7.8-10.44); Carbon Dioxide 32 mmol/L (23-31); Chloride 97 mmol/L (98-107); Glucose 119 mg/dL (83-110); Magnesium 2.3 mg/dL (1.6-2.6); Potassium 5.5 mmol/L (3.5-5.1); Sodium 137 mmol/L (136-145)
[2020-09-04] MEDS ORDERED: Acetaminophen 325 MG TAB ONE (15:42)
[2020-09-04] MEDS ORDERED: Nitroglycerin 0.4 MG TAB (25 Tab Bottle) SL PRN (15:47)
[2020-09-04 16:24] LABS: SARS-CoV-2 NAA Rapid Test Not Detected (NotDetected)
[2020-09-04 16:34] LABS: Bilirubin Negative (Negative); Blood, Urine Negative (Negative); Clarity Clear (Clear); Glucose, Urine (Dipstick) Normal (Negative); Ketone, Urine Negative (Negative); Leukocyte Negative Leu/uL (Negative); Nitrite Negative (Negative); Protein, Urine (Dipstick) Negative (Neg-Trace); Specific Gravity, Urine 1.014 (1.002-1.036); Urobilinogen 6 mg/dL (Less than 2); pH, Urine 5.5 (5.0-9.0)
[2020-09-04] MEDS: Apixaban 5 MG TAB PO SCH (23:00)
[2020-09-04] MEDS: AcetaZOLAMIDE 250 MG TAB PO SCH (23:00)
[2020-09-04] MEDS: Furosemide 100 MG in Sodium Chloride 0.9% 100 ML IVPB SCH (23:06)
[2020-09-04] MEDS: Acetaminophen 325 MG TAB PO PRN (23:46)
[2020-09-05 02:17] LABS: Anion Gap 16 mmol/L (10-20); BUN (Urea Nitrogen) 41 mg/dL (9.8-20.1); Calc. Creatinine Clearance 61 mL/min (70-130); Calcium 8.8 mg/dL (7.8-10.44); Carbon Dioxide 29 mmol/L (23-31); Chloride 96 mmol/L (98-107); Glucose 121 mg/dL (83-110); Potassium 5.7 mmol/L (3.5-5.1); Sodium 135 mmol/L (136-145)
[2020-09-05 04:05] LABS: Hemoglobin 11.2 g/dL (12.0-16.0); Mean Corpuscular HGB CONC 31.1 g/dL (32.0-36.0); Mean Corpuscular Hemoglobin 24.4 pg (27.0-31.0); Mean Corpuscular Volume 78.5 fL (78.0-98.0); Mean Platelet Volume 9.8 fL (7.4-10.4); Platelet Count 223 thou/uL (130-400); RBC Distribution Width 18.7 % (11.5-14.5); Red Blood Cell (RBC) Count 4.57 mill/uL (4.20-5.40)
[2020-09-05 04:18] LABS: Anion Gap 12 mmol/L (10-20); BUN (Urea Nitrogen) 43 mg/dL (9.8-20.1); Calc. Creatinine Clearance 62 mL/min (70-130); Calcium 8.8 mg/dL (7.8-10.44); Carbon Dioxide 32 mmol/L (23-31); Chloride 98 mmol/L (98-107); Glucose 119 mg/dL (83-110); Potassium 5.7 mmol/L (3.5-5.1); Sodium 136 mmol/L (136-145)
[2020-09-05] MEDS ORDERED: traMADol HCl 50 MG TAB PO SCH (04:45)
[2020-09-05 04:52] LABS: Lymphocytes 5 % (21-51); MDiff Complete? YES; Neutrophil 95 % (42-75); Platelet Morphology Comment Appears Adequate
[2020-09-05] MEDS: AcetaZOLAMIDE 250 MG TAB PO SCH ×2 (08:23→20:38)
[2020-09-05] MEDS: Apixaban 5 MG TAB PO SCH ×2 (08:23→20:38)
[2020-09-05] MEDS ORDERED: Digoxin 0.125 MG TAB PO SCH ×2 (09:00)
[2020-09-05] MEDS ORDERED: Apixaban 2.5 MG TAB PO SCH (09:15)
[2020-09-05] MEDS ORDERED: Ondansetron PF 4 MG/2 ML Vial IVP PRN (13:54)
[2020-09-05] MEDS ORDERED: Ondansetron ORAL SOLN. 4 MG/5 ML UDCUP PO PRN (13:55)
[2020-09-05] MEDS: Furosemide 100 MG in Sodium Chloride 0.9% 100 ML IVPB SCH (18:00)
[2020-09-05] MEDS: Acetaminophen 325 MG TAB PO PRN (20:39)
[2020-09-06 03:38] LABS: #Lymphocytes 0.7 thou/uL (1.20-3.40); #Monocytes 0.9 thou/uL (0.11-0.59); #Neutrophils 6.6 thou/uL (1.40-6.50); %Basophils 0.5 % (0.0-1.0); %Eosinophils 0.1 % (0.0-10.0); %Monocytes 11.2 % (0.0-10.0); %Neutrophils 80.2 % (42.0-75.0); Hemoglobin 10.9 g/dL (12.0-16.0); Mean Corpuscular HGB CONC 31.8 g/dL (32.0-36.0); Mean Corpuscular Hemoglobin 24.9 pg (27.0-31.0); Mean Corpuscular Volume 78.4 fL (78.0-98.0); Mean Platelet Volume 9.8 fL (7.4-10.4); Platelet Count 219 thou/uL (130-400); RBC Distribution Width 18.8 % (11.5-14.5); Red Blood Cell (RBC) Count 4.37 mill/uL (4.20-5.40); White Blood Cell (WBC) Count 8.2 thou/uL (4.8-10.8)
[2020-09-06 03:59] LABS: Anion Gap 14 mmol/L (10-20); BUN (Urea Nitrogen) 47 mg/dL (9.8-20.1); Calc. Creatinine Clearance 68 mL/min (70-130); Calcium 8.7 mg/dL (7.8-10.44); Carbon Dioxide 31 mmol/L (23-31); Chloride 95 mmol/L (98-107); Glucose 95 mg/dL (83-110); Potassium 4.1 mmol/L (3.5-5.1); Sodium 136 mmol/L (136-145)
[2020-09-06] MEDS: Acetaminophen 325 MG TAB PO PRN ×2 (05:29→23:05)
[2020-09-06] MEDS: Furosemide 40 MG TAB PO SCH ×2 (08:38→14:03)
[2020-09-06] MEDS: Apixaban 5 MG TAB PO SCH ×2 (08:38→20:13)
[2020-09-06] MEDS: AcetaZOLAMIDE 250 MG TAB PO SCH ×2 (08:38→20:13)
[2020-09-07 04:22] LABS: Anion Gap 10 mmol/L (10-20); BUN (Urea Nitrogen) 40 mg/dL (9.8-20.1); Calc. Creatinine Clearance 75 mL/min (70-130); Calcium 8.3 mg/dL (7.8-10.44); Carbon Dioxide 35 mmol/L (23-31); Chloride 99 mmol/L (98-107); Glucose 83 mg/dL (83-110); Potassium 3.7 mmol/L (3.5-5.1); Sodium 140 mmol/L (136-145)
[2020-09-07] MEDS: Apixaban 5 MG TAB PO SCH ×2 (08:31→20:54)
[2020-09-07] MEDS: AcetaZOLAMIDE 250 MG TAB PO SCH ×2 (08:31→20:54)
[2020-09-07] MEDS: Furosemide 40 MG TAB PO SCH ×2 (08:31→14:10)
[2020-09-07 08:40] LABS: #Eosinphils 0.1 thou/uL (0.0-0.7); #Lymphocytes 0.7 thou/uL (1.20-3.40); #Monocytes 0.8 thou/uL (0.11-0.59); #Neutrophils 5.7 thou/uL (1.40-6.50); %Basophils 0.6 % (0.0-1.0); %Eosinophils 0.7 % (0.0-10.0); %Lymphocytes 9.1 % (21.0-51.0); %Monocytes 11.4 % (0.0-10.0); %Neutrophils 78.1 % (42.0-75.0); Hemoglobin 11.9 g/dL (12.0-16.0); Mean Corpuscular HGB CONC 31.1 g/dL (32.0-36.0); Mean Corpuscular Hemoglobin 24.6 pg (27.0-31.0); Mean Corpuscular Volume 79.2 fL (78.0-98.0); Mean Platelet Volume 9.4 fL (7.4-10.4); Platelet Count 234 thou/uL (130-400); RBC Distribution Width 19.1 % (11.5-14.5); Red Blood Cell (RBC) Count 4.81 mill/uL (4.20-5.40); White Blood Cell (WBC) Count 7.3 thou/uL (4.8-10.8)
[2020-09-07 08:54] LABS: Anion Gap 12 mmol/L (10-20); BUN (Urea Nitrogen) 39 mg/dL (9.8-20.1); Calc. Creatinine Clearance 74 mL/min (70-130); Calcium 8.7 mg/dL (7.8-10.44); Carbon Dioxide 36 mmol/L (23-31); Chloride 97 mmol/L (98-107); Glucose 79 mg/dL (83-110); Potassium 3.4 mmol/L (3.5-5.1); Sodium 142 mmol/L (136-145)
[2020-09-07] MEDS: Acetaminophen 325 MG TAB PO PRN (09:26)
[2020-09-07] MEDS ORDERED: Potassium Chloride 20 MEQ TAB PO SCH (14:00)
[2020-09-07] MEDS: traMADol HCl 50 MG TAB PO PRN (20:54)
[2020-09-08 05:02] LABS: #Lymphocytes 0.7 thou/uL (1.20-3.40); #Monocytes 0.8 thou/uL (0.11-0.59); #Neutrophils 4.1 thou/uL (1.40-6.50); %Basophils 0.3 % (0.0-1.0); %Eosinophils 0.6 % (0.0-10.0); %Lymphocytes 12.3 % (21.0-51.0); %Monocytes 13.4 % (0.0-10.0); %Neutrophils 73.4 % (42.0-75.0); Hemoglobin 11.3 g/dL (12.0-16.0); Mean Corpuscular HGB CONC 30.2 g/dL (32.0-36.0); Mean Corpuscular Volume 79.6 fL (78.0-98.0); Mean Platelet Volume 9.4 fL (7.4-10.4); Platelet Count 208 thou/uL (130-400); Red Blood Cell (RBC) Count 4.73 mill/uL (4.20-5.40); White Blood Cell (WBC) Count 5.6 thou/uL (4.8-10.8)
[2020-09-08 05:07] LABS: Anion Gap 10 mmol/L (10-20); BUN (Urea Nitrogen) 36 mg/dL (9.8-20.1); Calc. Creatinine Clearance 76 mL/min (70-130); Calcium 8.5 mg/dL (7.8-10.44); Carbon Dioxide 35 mmol/L (23-31); Chloride 98 mmol/L (98-107); Glucose 93 mg/dL (83-110); Potassium 3.7 mmol/L (3.5-5.1); Sodium 139 mmol/L (136-145)
[2020-09-08] MEDS ORDERED: Potassium Chloride 20 MEQ TAB PO SCH (08:00)
[2020-09-08] MEDS: Furosemide 40 MG TAB PO SCH ×2 (08:02→14:14)
[2020-09-08] MEDS: AcetaZOLAMIDE 250 MG TAB PO SCH ×2 (08:02→20:41)
[2020-09-08] MEDS: Apixaban 5 MG TAB PO SCH ×2 (08:02→20:41)
[2020-09-08] MEDS: Acetaminophen 325 MG TAB PO PRN (08:03)
[2020-09-08] MEDS ORDERED: Sodium Chloride 0.9% 500 ML IV SCH (17:00)
[2020-09-08] MEDS: Mometasone 200 MCG/Formoterol 5 MCG 120 PUFF INHALER INH SCH (19:20)
[2020-09-08] MEDS: Doxycycline 100 MG CAP PO SCH (20:40)
[2020-09-08] MEDS: predniSONE 20 MG TAB PO SCH (20:42)
[2020-09-09] MEDS: traMADol HCl 50 MG TAB PO PRN (04:42)
[2020-09-09] MEDS: Mometasone 200 MCG/Formoterol 5 MCG 120 PUFF INHALER INH SCH ×2 (07:52→19:09)
[2020-09-09] MEDS: Doxycycline 100 MG CAP PO SCH ×2 (08:21→20:50)
[2020-09-09] MEDS: predniSONE 20 MG TAB PO SCH ×2 (08:21→20:50)
[2020-09-09] MEDS: AcetaZOLAMIDE 250 MG TAB PO SCH (08:21)
[2020-09-09] MEDS: Apixaban 5 MG TAB PO SCH ×2 (08:21→20:49)
[2020-09-09] MEDS ORDERED: Cyanocobalamin 1000 MCG/ML VIAL IM SCH ×2 (15:30→18:00)
[2020-09-09] MEDS ORDERED: Electrolyte Replacement Protocol FS SCH (17:45)
[2020-09-10 04:58] LABS: #Lymphocytes 0.2 thou/uL (1.20-3.40); #Monocytes 0.3 thou/uL (0.11-0.59); #Neutrophils 4.4 thou/uL (1.40-6.50); %Eosinophils 0.1 % (0.0-10.0); %Lymphocytes 4.9 % (21.0-51.0); %Monocytes 5.8 % (0.0-10.0); %Neutrophils 89.2 % (42.0-75.0); Hemoglobin 11.2 g/dL (12.0-16.0); Mean Corpuscular HGB CONC 30.1 g/dL (32.0-36.0); Mean Corpuscular Hemoglobin 23.9 pg (27.0-31.0); Mean Corpuscular Volume 79.5 fL (78.0-98.0); Mean Platelet Volume 9.9 fL (7.4-10.4); Platelet Count 201 thou/uL (130-400); RBC Distribution Width 19.1 % (11.5-14.5); Red Blood Cell (RBC) Count 4.68 mill/uL (4.20-5.40); White Blood Cell (WBC) Count 4.9 thou/uL (4.8-10.8)
[2020-09-10 05:12] LABS: Anion Gap 13 mmol/L (10-20); BUN (Urea Nitrogen) 33 mg/dL (9.8-20.1); Calc. Creatinine Clearance 73 mL/min (70-130); Calcium 8.7 mg/dL (7.8-10.44); Carbon Dioxide 33 mmol/L (23-31); Chloride 94 mmol/L (98-107); Glucose 133 mg/dL (83-110); Magnesium 2.1 mg/dL (1.6-2.6); Potassium 3.8 mmol/L (3.5-5.1); Sodium 136 mmol/L (136-145)
[2020-09-10] MEDS ORDERED: Furosemide 40 MG TAB PO SCH (07:30)
[2020-09-10] MEDS: Mometasone 200 MCG/Formoterol 5 MCG 120 PUFF INHALER INH SCH ×2 (08:03→19:27)
[2020-09-10] MEDS: Doxycycline 100 MG CAP PO SCH ×2 (08:38→22:18)
[2020-09-10] MEDS: predniSONE 20 MG TAB PO SCH ×2 (08:38→22:18)
[2020-09-10] MEDS: Apixaban 5 MG TAB PO SCH ×2 (08:38→22:18)
[2020-09-10] MEDS: AcetaZOLAMIDE 250 MG TAB PO SCH ×2 (08:38→22:18)
[2020-09-10] MEDS: Furosemide 40 MG TAB PO SCH ×2 (08:38→14:38)
[2020-09-10 12:22] VITALS: BMI 35.5
[2020-09-10] MEDS: Acetaminophen 325 MG TAB PO PRN (15:48)
[2020-09-11 04:33] LABS: #Lymphocytes 0.3 thou/uL (1.20-3.40); #Monocytes 0.6 thou/uL (0.11-0.59); #Neutrophils 5.7 thou/uL (1.40-6.50); %Basophils 0.1 % (0.0-1.0); %Eosinophils 0.1 % (0.0-10.0); %Lymphocytes 4.8 % (21.0-51.0); %Monocytes 9.5 % (0.0-10.0); %Neutrophils 85.5 % (42.0-75.0); Hemoglobin 10.9 g/dL (12.0-16.0); Mean Corpuscular HGB CONC 30.8 g/dL (32.0-36.0); Mean Corpuscular Hemoglobin 24.2 pg (27.0-31.0); Mean Corpuscular Volume 78.8 fL (78.0-98.0); Platelet Count 208 thou/uL (130-400); RBC Distribution Width 19.1 % (11.5-14.5); White Blood Cell (WBC) Count 6.6 thou/uL (4.8-10.8)
[2020-09-11 04:45] LABS: ALT (SGPT) 10 U/L (8-55); AST (SGOT) 12 U/L (5-34); Alkaline Phosphatase 63 U/L (40-110); Anion Gap 13 mmol/L (10-20); BUN (Urea Nitrogen) 28 mg/dL (9.8-20.1); Bilirubin, Total 1.9 mg/dL (0.2-1.2); Calc. Creatinine Clearance 86 mL/min (70-130); Calcium 8.5 mg/dL (7.8-10.44); Carbon Dioxide 30 mmol/L (23-31); Chloride 95 mmol/L (98-107); Globulin 1.7 g/dL (2.4-3.5); Glucose 103 mg/dL (83-110); Magnesium 1.9 mg/dL (1.6-2.6); Potassium 3.4 mmol/L (3.5-5.1); Protein, Total 4.7 g/dL (5.8-8.1); Sodium 135 mmol/L (136-145)
[2020-09-11] MEDS ORDERED: Potassium Chloride 20 MEQ TAB PO SCH (06:30)
[2020-09-11] MEDS ORDERED: Magnesium 2 GM/50 ML 2 GM in Premix Bag 1 BAG IVPB SCH (06:30)
[2020-09-11] MEDS: Mometasone 200 MCG/Formoterol 5 MCG 120 PUFF INHALER INH SCH ×2 (07:09→19:34)
[2020-09-11] MEDS ORDERED: Metolazone 5 MG TAB PO SCH (08:45)
[2020-09-11] MEDS ORDERED: Furosemide 40 MG/4 ML VIAL SLOW IVP SCH (08:45)
[2020-09-11] MEDS: Doxycycline 100 MG CAP PO SCH ×2 (09:36→20:26)
[2020-09-11] MEDS: AcetaZOLAMIDE 250 MG TAB PO SCH ×2 (09:36→20:26)
[2020-09-11] MEDS: predniSONE 20 MG TAB PO SCH (09:36)
[2020-09-11] MEDS: Acetaminophen 325 MG TAB PO PRN (09:37)
[2020-09-11] MEDS: Apixaban 5 MG TAB PO SCH ×2 (09:37→20:26)
[2020-09-11] MEDS: Furosemide 40 MG TAB PO SCH ×2 (09:46→16:01)
[2020-09-12] MEDS: traMADol HCl 50 MG TAB PO PRN ×2 (02:59→14:47)
[2020-09-12 04:52] LABS: #Lymphocytes 0.4 thou/uL (1.20-3.40); #Monocytes 0.9 thou/uL (0.11-0.59); #Neutrophils 7.3 thou/uL (1.40-6.50); %Lymphocytes 4.4 % (21.0-51.0); %Monocytes 10.1 % (0.0-10.0); %Neutrophils 85.4 % (42.0-75.0); Hemoglobin 11.5 g/dL (12.0-16.0); Mean Corpuscular HGB CONC 30.3 g/dL (32.0-36.0); Mean Corpuscular Hemoglobin 23.7 pg (27.0-31.0); Mean Platelet Volume 10.2 fL (7.4-10.4); Platelet Count 211 thou/uL (130-400); Red Blood Cell (RBC) Count 4.87 mill/uL (4.20-5.40); White Blood Cell (WBC) Count 8.6 thou/uL (4.8-10.8)
[2020-09-12] MEDS: Mometasone 200 MCG/Formoterol 5 MCG 120 PUFF INHALER INH SCH (07:52)
[2020-09-12] MEDS ORDERED: predniSONE 20 MG TAB PO SCH (08:00)
[2020-09-12] MEDS ORDERED: Potassium Chloride 20 MEQ TAB PO SCH (08:30)
[2020-09-12] MEDS: Furosemide 40 MG TAB PO SCH ×2 (09:07→14:46)
[2020-09-12] MEDS: Acetaminophen 325 MG TAB PO PRN (09:08)
[2020-09-12] MEDS: AcetaZOLAMIDE 250 MG TAB PO SCH (09:08)
[2020-09-12] MEDS: Doxycycline 100 MG CAP PO SCH (09:10)
[2020-09-12] MEDS: Apixaban 5 MG TAB PO SCH (09:10)
[2020-09-12 16:43] VITALS: BP 142/75; TEMP 97.9
[2020-09-13] MEDS ORDERED: Potassium Chloride 20 MEQ TAB PO SCH (08:00)
[2020-09-23] MEDS ORDERED: Cyanocobalamin 1000 MCG/ML VIAL IM SCH (15:30)
== END 2020-09-12 17:30 | disposition swing bed, planned readmission (89) | DRG 291 ==
LOC: ERS 12:48 → IMCU/EMU 14:45 → 2NO 09-07 11:55
PROVIDERS: ADMIT Internal Medicine; ATTEND Internal Medicine
DX: I13.0 Hypertensive heart and chronic kidney disease with heart failure and stage 1 through stage 4 chronic kidney disease, or unspecified chronic kidney disease (principal); J96.21 Acute and chronic respiratory failure with hypoxia; I50.33 Acute on chronic diastolic (congestive) heart failure; J96.22 Acute and chronic respiratory failure with hypercapnia; J15.9 Unspecified bacterial pneumonia; E87.3 Alkalosis; J44.0 Chronic obstructive pulmonary disease with (acute) lower respiratory infection; L03.115 Cellulitis of right lower limb; E87.1 Hypo-osmolality and hyponatremia; J44.1 Chronic obstructive pulmonary disease with (acute) exacerbation; N17.9 Acute kidney failure, unspecified; E66.2 Morbid (severe) obesity with alveolar hypoventilation; I48.19 Other persistent atrial fibrillation; E87.6 Hypokalemia; E87.5 Hyperkalemia; I27.29 Other secondary pulmonary hypertension; I07.1 Rheumatic tricuspid insufficiency; K21.9 Gastro-esophageal reflux disease without esophagitis; I87.2 Venous insufficiency (chronic) (peripheral); E53.8 Deficiency of other specified B group vitamins; Z90.710 Acquired absence of both cervix and uterus; Z90.49 Acquired absence of other specified parts of digestive tract; Z98.890 Other specified postprocedural states; Z88.1 Allergy status to other antibiotic agents; Z79.82 Long term (current) use of aspirin; Z79.899 Other long term (current) drug therapy; Z79.01 Long term (current) use of anticoagulants; Z99.81 Dependence on supplemental oxygen; Z79.51 Long term (current) use of inhaled steroids; Z99.89 Dependence on other enabling machines and devices; Z68.34 Body mass index [BMI] 34.0-34.9, adult
CPT/HCPCS: 0240U; 36415; 51702; 71045; 80048; 80053; 81003; 83735; 83880; 85025; 93005; 94640; J1940; J2405; J3420; J3475; J3490; J7512; J7620

== ENCOUNTER 2020-09-17 14:10 | Inpatient (IN) | payer MEDICARE ==
[2020-09-17] MEDS ORDERED: Norepinephrine 8 MG/0.9% NS 0 ML ONE ×2 (14:15→14:20)
[2020-09-17] MEDS ORDERED: Digoxin 0.5 MG/2 ML AMP ONE (14:20)
[2020-09-17] MEDS ORDERED: Magnesium 2 GM/50 ML BAG (IN WATER) ONE ×2 (14:21→14:49)
[2020-09-17] MEDS ORDERED: Norepinephrine 8 MG/0.9% NS 250 ML ONE (14:21)
[2020-09-17] MEDS ORDERED: Cefepime 2 GM VIAL ONE (14:21)
[2020-09-17 14:29] LABS: Actual Bicarbonate (HCO3a) 28.2 mEq/L (22-28); Analyzer IN Cardio ER; Base Excess (BEa) 4.4 mEq/L (-2.0 to +3.0); CO2 Tension 39.5 mmHg (35.0-45.0); Calcium, Ionized (arterial) 1.13 mmol/L (1.12-1.30); Hemoglobin (Hb) 13.2 g/dL (12.0-16.0); pH, Arterial 7.47 (7.35-7.45)
[2020-09-17 14:33] LABS: ALV-art Gradient 92.565 mmHg (0-20); O2 Tension (PaO2), arterial 57.7 mmHg (> 60.0); Puncture Site RRA
[2020-09-17] MEDS ORDERED: Dexamethasone 10 MG/ML VIAL ONE (14:55)
[2020-09-17] MEDS ORDERED: Heparin 1,000 UNITS/ML VIAL ONE (15:31)
[2020-09-17 16:30] LABS: SARS-CoV-2 NAA Rapid Test Not Detected (NotDetected)
[2020-09-17] MEDS ORDERED: Acetaminophen 650 MG Suppository PR PRN (17:14)
[2020-09-17] MEDS ORDERED: Ondansetron PF 4 MG/2 ML Vial IVP PRN ×2 (17:14→17:30)
[2020-09-17] MEDS ORDERED: Acetaminophen 325 MG TAB PO PRN ×2 (17:25→17:30)
[2020-09-17] MEDS ORDERED: Ondansetron ODT 4 MG TAB SL PRN (17:30)
[2020-09-17] MEDS ORDERED: Norepinephrine 8 MG/0.9% NS 250 ML IVPB SCH (17:30)
[2020-09-17] MEDS ORDERED: Vancomycin 1.5 GRAM/300 ML BAG 1.5 GM in Premix Bag 1 BAG IVPB SCH ×2 (18:00→23:59)
[2020-09-17] MEDS: Digoxin 0.5 MG/2 ML AMP SLOW IVP SCH (19:12)
[2020-09-17] MEDS: Apixaban 5 MG TAB PO SCH (20:27)
[2020-09-18] MEDS: Digoxin 0.5 MG/2 ML AMP SLOW IVP SCH (00:49)
[2020-09-18] MEDS ORDERED: Cefepime 2 GM in Sodium Chloride 0.9% 100 ML IVPB SCH ×2 (02:00→14:00)
[2020-09-18 05:06] LABS: ALT (SGPT) 10 U/L (8-55); AST (SGOT) 12 U/L (5-34); Albumin 2.7 g/dL (3.4-4.8); Alkaline Phosphatase 68 U/L (40-110); Anion Gap 13 mmol/L (10-20); BUN (Urea Nitrogen) 38 mg/dL (9.8-20.1); Bilirubin, Total 3.9 mg/dL (0.2-1.2); Calc. Creatinine Clearance 66 mL/min (70-130); Calcium 8.5 mg/dL (7.8-10.44); Carbon Dioxide 31 mmol/L (23-31); Chloride 96 mmol/L (98-107); Globulin 1.8 g/dL (2.4-3.5); Glucose 110 mg/dL (83-110); Potassium 4.6 mmol/L (3.5-5.1); Protein, Total 4.5 g/dL (5.8-8.1); Sodium 135 mmol/L (136-145)
[2020-09-18 06:25] LABS: Anisocytosis SLIGHT = 6-15 cells (100X) (0-5/hpf); Band 14 % (5-11); Hemoglobin 10.7 g/dL (12.0-16.0); Lymphocytes 1 % (21-51); MDiff Complete? YES; Mean Corpuscular HGB CONC 29.9 g/dL (32.0-36.0); Mean Corpuscular Hemoglobin 23.7 pg (27.0-31.0); Mean Corpuscular Volume 79.2 fL (78.0-98.0); Mean Platelet Volume 12.3 fL (7.4-10.4); Monocytes 1 % (0-10); Neutrophil 84 % (42-75); Platelet Count 121 thou/uL (130-400); RBC Distribution Width 19.3 % (11.5-14.5); Red Blood Cell (RBC) Count 4.52 mill/uL (4.20-5.40); White Blood Cell (WBC) Count 14.8 thou/uL (4.8-10.8)
[2020-09-18] MEDS: Apixaban 5 MG TAB PO SCH ×2 (09:42→20:20)
[2020-09-18] MEDS: predniSONE 20 MG TAB PO SCH (09:57)
[2020-09-18] MEDS: Mometasone 200 MCG/Formoterol 5 MCG 120 PUFF INHALER INH SCH (18:24)
[2020-09-18] MEDS: Cefepime 2 GM in Sodium Chloride 0.9% 100 ML IVPB SCH (22:30)
[2020-09-19 05:14] LABS: Anion Gap 13 mmol/L (10-20); BUN (Urea Nitrogen) 42 mg/dL (9.8-20.1); Calc. Creatinine Clearance 78 mL/min (70-130); Calcium 8.6 mg/dL (7.8-10.44); Carbon Dioxide 30 mmol/L (23-31); Chloride 98 mmol/L (98-107); Glucose 118 mg/dL (83-110); Potassium 4.3 mmol/L (3.5-5.1); Sodium 137 mmol/L (136-145)
[2020-09-19] MEDS: Cefepime 2 GM in Sodium Chloride 0.9% 100 ML IVPB SCH ×3 (06:37→22:31)
[2020-09-19] MEDS: Mometasone 200 MCG/Formoterol 5 MCG 120 PUFF INHALER INH SCH ×2 (07:04→18:37)
[2020-09-19] MEDS: Apixaban 5 MG TAB PO SCH ×2 (09:53→20:35)
[2020-09-19] MEDS: predniSONE 20 MG TAB PO SCH (10:27)
[2020-09-20 03:48] LABS: #Lymphocytes 0.5 thou/uL (1.20-3.40); #Monocytes 1.2 thou/uL (0.11-0.59); #Neutrophils 9.2 thou/uL (1.40-6.50); %Eosinophils 0.1 % (0.0-10.0); %Lymphocytes 4.5 % (21.0-51.0); %Monocytes 10.8 % (0.0-10.0); %Neutrophils 84.7 % (42.0-75.0); Hemoglobin 11.4 g/dL (12.0-16.0); Mean Corpuscular HGB CONC 29.5 g/dL (32.0-36.0); Mean Corpuscular Hemoglobin 23.5 pg (27.0-31.0); Mean Corpuscular Volume 79.7 fL (78.0-98.0); Platelet Count 128 thou/uL (130-400); RBC Distribution Width 19.3 % (11.5-14.5); Red Blood Cell (RBC) Count 4.84 mill/uL (4.20-5.40); White Blood Cell (WBC) Count 10.8 thou/uL (4.8-10.8)
[2020-09-20 03:56] LABS: Anion Gap 11 mmol/L (10-20); BUN (Urea Nitrogen) 33 mg/dL (9.8-20.1); Calc. Creatinine Clearance 88 mL/min (70-130); Calcium 8.6 mg/dL (7.8-10.44); Carbon Dioxide 30 mmol/L (23-31); Chloride 99 mmol/L (98-107); Glucose 126 mg/dL (83-110); Potassium 4.1 mmol/L (3.5-5.1); Sodium 136 mmol/L (136-145)
[2020-09-20] MEDS: Cefepime 2 GM in Sodium Chloride 0.9% 100 ML IVPB SCH ×3 (06:47→23:15)
[2020-09-20] MEDS: Mometasone 200 MCG/Formoterol 5 MCG 120 PUFF INHALER INH SCH ×2 (07:39→18:31)
[2020-09-20] MEDS: Apixaban 5 MG TAB PO SCH ×2 (09:30→20:17)
[2020-09-20] MEDS: predniSONE 20 MG TAB PO SCH (09:34)
[2020-09-20] MEDS ORDERED: Furosemide 40 MG TAB PO SCH (19:45)
[2020-09-21] MEDS: Cefepime 2 GM in Sodium Chloride 0.9% 100 ML IVPB SCH ×3 (05:54→22:42)
[2020-09-21] MEDS: Mometasone 200 MCG/Formoterol 5 MCG 120 PUFF INHALER INH SCH ×2 (07:55→19:34)
[2020-09-21] MEDS: Furosemide 40 MG TAB PO SCH ×2 (08:52→10:01)
[2020-09-21] MEDS: Apixaban 5 MG TAB PO SCH ×2 (08:52→20:15)
[2020-09-21] MEDS: predniSONE 20 MG TAB PO SCH (08:53)
[2020-09-22 03:23] LABS: #Eosinphils 0.1 thou/uL (0.0-0.7); #Lymphocytes 0.6 thou/uL (1.20-3.40); #Monocytes 0.7 thou/uL (0.11-0.59); #Neutrophils 7.9 thou/uL (1.40-6.50); %Eosinophils 0.7 % (0.0-10.0); %Lymphocytes 6.7 % (21.0-51.0); %Monocytes 7.1 % (0.0-10.0); %Neutrophils 85.6 % (42.0-75.0); Hemoglobin 11.4 g/dL (12.0-16.0); Mean Corpuscular HGB CONC 30.5 g/dL (32.0-36.0); Mean Corpuscular Hemoglobin 24.3 pg (27.0-31.0); Mean Corpuscular Volume 79.8 fL (78.0-98.0); Mean Platelet Volume 11.6 fL (7.4-10.4); Platelet Count 120 thou/uL (130-400); RBC Distribution Width 19.2 % (11.5-14.5); White Blood Cell (WBC) Count 9.3 thou/uL (4.8-10.8)
[2020-09-22 03:28] LABS: Anion Gap 9 mmol/L (10-20); BUN (Urea Nitrogen) 21 mg/dL (9.8-20.1); Calc. Creatinine Clearance 106 mL/min (70-130); Calcium 8.2 mg/dL (7.8-10.44); Carbon Dioxide 31 mmol/L (23-31); Chloride 99 mmol/L (98-107); Glucose 107 mg/dL (83-110); Magnesium 2.1 mg/dL (1.6-2.6); Potassium 3.8 mmol/L (3.5-5.1); Sodium 135 mmol/L (136-145)
[2020-09-22 03:32] LABS: Troponin I 0.075 ng/mL (< 0.028)
[2020-09-22 03:36] LABS: ALT (SGPT) 10 U/L (8-55); AST (SGOT) 13 U/L (5-34); Albumin 2.5 g/dL (3.4-4.8); Alkaline Phosphatase 54 U/L (40-110); Anion Gap 11 mmol/L (10-20); BUN (Urea Nitrogen) 22 mg/dL (9.8-20.1); Bilirubin, Total 1.7 mg/dL (0.2-1.2); Calc. Creatinine Clearance 105 mL/min (70-130); Calcium 8.3 mg/dL (7.8-10.44); Carbon Dioxide 29 mmol/L (23-31); Chloride 99 mmol/L (98-107); Globulin 1.8 g/dL (2.4-3.5); Glucose 107 mg/dL (83-110); Potassium 3.8 mmol/L (3.5-5.1); Protein, Total 4.3 g/dL (5.8-8.1); Sodium 135 mmol/L (136-145)
[2020-09-22] MEDS: Cefepime 2 GM in Sodium Chloride 0.9% 100 ML IVPB SCH ×3 (05:03→23:35)
[2020-09-22] MEDS: Mometasone 200 MCG/Formoterol 5 MCG 120 PUFF INHALER INH SCH ×2 (07:44→19:30)
[2020-09-22] MEDS: predniSONE 20 MG TAB PO SCH (09:23)
[2020-09-22] MEDS: Apixaban 5 MG TAB PO SCH ×2 (09:23→20:37)
[2020-09-22] MEDS: Furosemide 40 MG TAB PO SCH (09:35)
[2020-09-22] MEDS ORDERED: Furosemide 40 MG/4 ML VIAL SLOW IVP SCH (13:30)
[2020-09-22] MEDS ORDERED: Cyanocobalamin 1000 MCG/ML VIAL IM SCH (17:45)
[2020-09-23 05:23] LABS: #Eosinphils 0.1 thou/uL (0.0-0.7); #Lymphocytes 0.6 thou/uL (1.20-3.40); #Monocytes 0.7 thou/uL (0.11-0.59); %Basophils 0.1 % (0.0-1.0); %Eosinophils 0.7 % (0.0-10.0); %Lymphocytes 6.1 % (21.0-51.0); %Monocytes 6.6 % (0.0-10.0); %Neutrophils 86.5 % (42.0-75.0); Hemoglobin 11.9 g/dL (12.0-16.0); Mean Corpuscular HGB CONC 30.5 g/dL (32.0-36.0); Mean Corpuscular Hemoglobin 24.6 pg (27.0-31.0); Mean Corpuscular Volume 80.8 fL (78.0-98.0); Mean Platelet Volume 11.1 fL (7.4-10.4); Platelet Count 157 thou/uL (130-400); RBC Distribution Width 19.7 % (11.5-14.5); Red Blood Cell (RBC) Count 4.82 mill/uL (4.20-5.40); White Blood Cell (WBC) Count 10.4 thou/uL (4.8-10.8)
[2020-09-23] MEDS: Cefepime 2 GM in Sodium Chloride 0.9% 100 ML IVPB SCH ×3 (05:39→21:51)
[2020-09-23 05:53] LABS: Anion Gap 7 mmol/L (10-20); BUN (Urea Nitrogen) 20 mg/dL (9.8-20.1); Calc. Creatinine Clearance 154 mL/min (70-130); Calcium 8.3 mg/dL (7.8-10.44); Carbon Dioxide 36 mmol/L (23-31); Chloride 95 mmol/L (98-107); Glucose 101 mg/dL (83-110); Potassium 3.3 mmol/L (3.5-5.1); Sodium 135 mmol/L (136-145)
[2020-09-23] MEDS: Mometasone 200 MCG/Formoterol 5 MCG 120 PUFF INHALER INH SCH ×2 (07:29→19:31)
[2020-09-23] MEDS: Acetaminophen 325 MG TAB PO PRN (08:20)
[2020-09-23] MEDS: Apixaban 5 MG TAB PO SCH ×2 (08:20→21:50)
[2020-09-23] MEDS: predniSONE 20 MG TAB PO SCH (08:20)
[2020-09-23] MEDS: Furosemide 40 MG TAB PO SCH (08:22)
[2020-09-23] MEDS ORDERED: Potassium Chloride 20 MEQ TAB PO SCH (09:30)
[2020-09-23] MEDS: AcetaZOLAMIDE 250 MG TAB PO SCH ×2 (10:18→21:49)
[2020-09-23] MEDS ORDERED: Furosemide 40 MG/4 ML VIAL SLOW IVP SCH (13:45)
[2020-09-24] MEDS: Cefepime 2 GM in Sodium Chloride 0.9% 100 ML IVPB SCH ×3 (05:52→23:07)
[2020-09-24 05:56] LABS: #Eosinphils 0.1 thou/uL (0.0-0.7); #Lymphocytes 0.7 thou/uL (1.20-3.40); #Monocytes 0.7 thou/uL (0.11-0.59); #Neutrophils 10.6 thou/uL (1.40-6.50); %Eosinophils 0.8 % (0.0-10.0); %Lymphocytes 5.6 % (21.0-51.0); %Monocytes 5.6 % (0.0-10.0); Hemoglobin 12.2 g/dL (12.0-16.0); Mean Corpuscular HGB CONC 30.3 g/dL (32.0-36.0); Mean Corpuscular Hemoglobin 24.6 pg (27.0-31.0); Mean Platelet Volume 11.1 fL (7.4-10.4); Platelet Count 156 thou/uL (130-400); RBC Distribution Width 19.7 % (11.5-14.5); Red Blood Cell (RBC) Count 4.94 mill/uL (4.20-5.40); White Blood Cell (WBC) Count 12.1 thou/uL (4.8-10.8)
[2020-09-24 06:16] LABS: Anion Gap 13 mmol/L (10-20); BUN (Urea Nitrogen) 19 mg/dL (9.8-20.1); Calc. Creatinine Clearance 149 mL/min (70-130); Calcium 8.6 mg/dL (7.8-10.44); Carbon Dioxide 28 mmol/L (23-31); Chloride 99 mmol/L (98-107); Glucose 96 mg/dL (83-110); Potassium 4.1 mmol/L (3.5-5.1); Sodium 136 mmol/L (136-145)
[2020-09-24] MEDS: Mometasone 200 MCG/Formoterol 5 MCG 120 PUFF INHALER INH SCH ×2 (07:24→19:13)
[2020-09-24] MEDS: Apixaban 5 MG TAB PO SCH ×2 (08:52→21:38)
[2020-09-24] MEDS: Furosemide 40 MG TAB PO SCH (08:52)
[2020-09-24] MEDS: AcetaZOLAMIDE 250 MG TAB PO SCH ×2 (08:52→21:37)
[2020-09-24] MEDS: predniSONE 20 MG TAB PO SCH ×2 (09:33→11:14)
[2020-09-24] MEDS ORDERED: Furosemide 100 MG/10 ML VIAL SLOW IVP SCH ×2 (12:00→17:00)
[2020-09-25] MEDS: Mometasone 200 MCG/Formoterol 5 MCG 120 PUFF INHALER INH SCH ×2 (07:16→18:59)
[2020-09-25] MEDS: Furosemide 40 MG TAB PO SCH ×3 (07:57→15:02)
[2020-09-25] MEDS: Apixaban 5 MG TAB PO SCH ×2 (07:57→21:01)
[2020-09-25] MEDS: AcetaZOLAMIDE 250 MG TAB PO SCH ×2 (07:57→21:01)
[2020-09-25] MEDS: Acetaminophen 325 MG TAB PO PRN (08:01)
[2020-09-25] MEDS: predniSONE 20 MG TAB PO SCH (11:39)
[2020-09-25] MEDS: Cefepime 2 GM in Sodium Chloride 0.9% 100 ML IVPB SCH ×2 (11:39→23:56)
[2020-09-25 12:44] LABS: Actual Bicarbonate (HCO3a) 34.4 mEq/L (22-28); Base Excess (BEa) 7.7 mEq/L (-2.0 to +3.0); Carboxyhemoglobin (COHb) 1.3 gm% (0.0-3.0); Hemoglobin (Hb) 12.8 g/dL (12.0-16.0); Potassium - ABG Lab 3.75 mmol/L (3.70-5.30); pH, Arterial 7.39 (7.35-7.45)
[2020-09-25 12:46] LABS: Puncture Site RRA
[2020-09-25 16:20] VITALS: BMI 34.8
[2020-09-26] MEDS: Mometasone 200 MCG/Formoterol 5 MCG 120 PUFF INHALER INH SCH ×2 (07:47→19:20)
[2020-09-26] MEDS: Apixaban 5 MG TAB PO SCH ×2 (08:30→21:12)
[2020-09-26] MEDS: Furosemide 40 MG TAB PO SCH ×2 (08:30→14:07)
[2020-09-26] MEDS: AcetaZOLAMIDE 250 MG TAB PO SCH ×2 (08:30→21:12)
[2020-09-26 09:33] LABS: Anion Gap 10 mmol/L (10-20); BUN (Urea Nitrogen) 20 mg/dL (9.8-20.1); Calc. Creatinine Clearance 90 mL/min (70-130); Calcium 9.4 mg/dL (7.8-10.44); Carbon Dioxide 36 mmol/L (23-31); Chloride 97 mmol/L (98-107); Glucose 157 mg/dL (83-110); Potassium 3.9 mmol/L (3.5-5.1); Sodium 139 mmol/L (136-145)
[2020-09-26] MEDS ORDERED: Furosemide 100 MG/10 ML VIAL SLOW IVP SCH (09:45)
[2020-09-26] MEDS: predniSONE 20 MG TAB PO SCH (11:10)
[2020-09-26] MEDS: Cefepime 2 GM in Sodium Chloride 0.9% 100 ML IVPB SCH ×2 (11:10→22:21)
[2020-09-27 04:57] LABS: #Eosinphils 0.1 thou/uL (0.0-0.7); #Lymphocytes 0.5 thou/uL (1.20-3.40); #Monocytes 0.6 thou/uL (0.11-0.59); #Neutrophils 10.3 thou/uL (1.40-6.50); %Basophils 0.1 % (0.0-1.0); %Eosinophils 0.5 % (0.0-10.0); %Lymphocytes 4.1 % (21.0-51.0); %Monocytes 5.3 % (0.0-10.0); %Neutrophils 90.1 % (42.0-75.0); Hemoglobin 11.4 g/dL (12.0-16.0); Mean Corpuscular HGB CONC 30.5 g/dL (32.0-36.0); Mean Corpuscular Hemoglobin 24.7 pg (27.0-31.0); Mean Corpuscular Volume 81.1 fL (78.0-98.0); Mean Platelet Volume 10.5 fL (7.4-10.4); Platelet Count 179 thou/uL (130-400); Red Blood Cell (RBC) Count 4.59 mill/uL (4.20-5.40); White Blood Cell (WBC) Count 11.4 thou/uL (4.8-10.8)
[2020-09-27 05:19] LABS: ALT (SGPT) 12 U/L (8-55); AST (SGOT) 18 U/L (5-34); Albumin 2.7 g/dL (3.4-4.8); Alkaline Phosphatase 61 U/L (40-110); Anion Gap 10 mmol/L (10-20); BUN (Urea Nitrogen) 22 mg/dL (9.8-20.1); Bilirubin, Total 1.4 mg/dL (0.2-1.2); Calc. Creatinine Clearance 98 mL/min (70-130); Calcium 8.7 mg/dL (7.8-10.44); Carbon Dioxide 33 mmol/L (23-31); Chloride 99 mmol/L (98-107); Globulin 1.7 g/dL (2.4-3.5); Glucose 119 mg/dL (83-110); Potassium 3.6 mmol/L (3.5-5.1); Protein, Total 4.4 g/dL (5.8-8.1); Sodium 138 mmol/L (136-145)
[2020-09-27] MEDS: Mometasone 200 MCG/Formoterol 5 MCG 120 PUFF INHALER INH SCH ×2 (07:45→19:21)
[2020-09-27] MEDS: Furosemide 40 MG TAB PO SCH (08:01)
[2020-09-27] MEDS: Apixaban 5 MG TAB PO SCH ×2 (08:01→20:38)
[2020-09-27] MEDS: AcetaZOLAMIDE 250 MG TAB PO SCH ×2 (08:01→20:39)
[2020-09-27] MEDS ORDERED: Cyanocobalamin (Vitamin B-12) 1,000 MCG TAB PO SCH (10:30)
[2020-09-27] MEDS ORDERED: Multivit, Therapeutic 1 TAB PO SCH (10:30)
[2020-09-27] MEDS ORDERED: Ergocalciferol 1.25 MG(50,000 UNITS) CAP PO SCH (10:30)
[2020-09-27] MEDS ORDERED: Potassium Chloride 10 MEQ TAB PO SCH (10:30)
[2020-09-27] MEDS: predniSONE 20 MG TAB PO SCH (12:02)
[2020-09-27] MEDS: Cefepime 2 GM in Sodium Chloride 0.9% 100 ML IVPB SCH ×2 (12:02→23:32)
[2020-09-27] MEDS: Albumin 25% 25 GM/100 ML BOT IVPB SCH ×2 (13:41→17:33)
[2020-09-27] MEDS: Potassium Chloride 10 MEQ TAB PO SCH (17:33)
[2020-09-28] MEDS: Albumin 25% 25 GM/100 ML BOT IVPB SCH ×2 (00:35→05:11)
[2020-09-28 04:45] LABS: #Eosinphils 0.1 thou/uL (0.0-0.7); #Lymphocytes 0.5 thou/uL (1.20-3.40); #Monocytes 0.7 thou/uL (0.11-0.59); #Neutrophils 8.9 thou/uL (1.40-6.50); %Eosinophils 0.5 % (0.0-10.0); %Lymphocytes 4.9 % (21.0-51.0); %Monocytes 6.9 % (0.0-10.0); %Neutrophils 87.7 % (42.0-75.0); Hemoglobin 10.9 g/dL (12.0-16.0); Mean Corpuscular HGB CONC 29.2 g/dL (32.0-36.0); Mean Corpuscular Hemoglobin 23.9 pg (27.0-31.0); Mean Corpuscular Volume 81.8 fL (78.0-98.0); Mean Platelet Volume 10.5 fL (7.4-10.4); Platelet Count 172 thou/uL (130-400); RBC Distribution Width 20.2 % (11.5-14.5); Red Blood Cell (RBC) Count 4.57 mill/uL (4.20-5.40); White Blood Cell (WBC) Count 10.1 thou/uL (4.8-10.8)
[2020-09-28 04:58] LABS: ALT (SGPT) 12 U/L (8-55); AST (SGOT) 13 U/L (5-34); Albumin 3.5 g/dL (3.4-4.8); Alkaline Phosphatase 51 U/L (40-110); Anion Gap 9 mmol/L (10-20); BUN (Urea Nitrogen) 22 mg/dL (9.8-20.1); Bilirubin, Total 1.8 mg/dL (0.2-1.2); Calc. Creatinine Clearance 94 mL/min (70-130); Calcium 9.2 mg/dL (7.8-10.44); Carbon Dioxide 34 mmol/L (23-31); Chloride 99 mmol/L (98-107); Globulin 1.6 g/dL (2.4-3.5); Glucose 114 mg/dL (83-110); Magnesium 2.3 mg/dL (1.6-2.6); Phosphorus 2.4 mg/dL (2.3-4.7); Protein, Total 5.1 g/dL (5.8-8.1); Sodium 138 mmol/L (136-145)
[2020-09-28] MEDS: Mometasone 200 MCG/Formoterol 5 MCG 120 PUFF INHALER INH SCH ×2 (07:27→20:00)
[2020-09-28] MEDS: Cyanocobalamin (Vitamin B-12) 1,000 MCG TAB PO SCH (08:11)
[2020-09-28] MEDS: AcetaZOLAMIDE 250 MG TAB PO SCH ×2 (08:11→20:29)
[2020-09-28] MEDS: Multivit, Therapeutic 1 TAB PO SCH (08:11)
[2020-09-28] MEDS: Folic Acid 1 MG TAB PO SCH (08:11)
[2020-09-28] MEDS: Potassium Chloride 10 MEQ TAB PO SCH ×2 (08:12→16:12)
[2020-09-28] MEDS: Furosemide 20 MG TAB PO SCH ×2 (08:12→14:10)
[2020-09-28] MEDS: Apixaban 5 MG TAB PO SCH ×2 (08:12→20:29)
[2020-09-28] MEDS ORDERED: Artificial Tear Sol 15 ML BOT EA EYE PRN (11:01)
[2020-09-28] MEDS: predniSONE 20 MG TAB PO SCH (11:43)
[2020-09-28] MEDS: Cefepime 2 GM in Sodium Chloride 0.9% 100 ML IVPB SCH ×2 (11:47→23:52)
[2020-09-28] MEDS ORDERED: Digoxin 0.25 MG TAB PO SCH (12:00)
[2020-09-28] MEDS: Saccharomyces boulardii 250 MG CAP PO SCH (20:28)
[2020-09-29 04:26] LABS: #Eosinphils 0.1 thou/uL (0.0-0.7); #Lymphocytes 0.6 thou/uL (1.20-3.40); #Monocytes 0.8 thou/uL (0.11-0.59); #Neutrophils 8.7 thou/uL (1.40-6.50); %Basophils 0.1 % (0.0-1.0); %Eosinophils 0.6 % (0.0-10.0); %Monocytes 8.2 % (0.0-10.0); %Neutrophils 85.1 % (42.0-75.0); Hemoglobin 11.2 g/dL (12.0-16.0); Mean Corpuscular HGB CONC 30.9 g/dL (32.0-36.0); Mean Corpuscular Hemoglobin 25.1 pg (27.0-31.0); Mean Corpuscular Volume 81.2 fL (78.0-98.0); Mean Platelet Volume 10.7 fL (7.4-10.4); Platelet Count 160 thou/uL (130-400); RBC Distribution Width 20.4 % (11.5-14.5); Red Blood Cell (RBC) Count 4.47 mill/uL (4.20-5.40); White Blood Cell (WBC) Count 10.2 thou/uL (4.8-10.8)
[2020-09-29 04:52] LABS: ALT (SGPT) 9 U/L (8-55); AST (SGOT) 14 U/L (5-34); Albumin 3.2 g/dL (3.4-4.8); Alkaline Phosphatase 50 U/L (40-110); Anion Gap 11 mmol/L (10-20); BUN (Urea Nitrogen) 21 mg/dL (9.8-20.1); Calc. Creatinine Clearance 106 mL/min (70-130); Calcium 9.1 mg/dL (7.8-10.44); Carbon Dioxide 30 mmol/L (23-31); Chloride 100 mmol/L (98-107); Globulin 1.5 g/dL (2.4-3.5); Glucose 99 mg/dL (83-110); Magnesium 2.4 mg/dL (1.6-2.6); Phosphorus 2.6 mg/dL (2.3-4.7); Potassium 4.2 mmol/L (3.5-5.1); Protein, Total 4.7 g/dL (5.8-8.1); Sodium 137 mmol/L (136-145)
[2020-09-29] MEDS: Mometasone 200 MCG/Formoterol 5 MCG 120 PUFF INHALER INH SCH ×2 (07:58→19:20)
[2020-09-29] MEDS: Apixaban 5 MG TAB PO SCH ×2 (08:17→20:21)
[2020-09-29] MEDS: AcetaZOLAMIDE 250 MG TAB PO SCH ×2 (08:17→20:21)
[2020-09-29] MEDS: Folic Acid 1 MG TAB PO SCH (08:17)
[2020-09-29] MEDS: Digoxin 0.125 MG TAB PO SCH (08:17)
[2020-09-29] MEDS: Potassium Chloride 10 MEQ TAB PO SCH ×2 (08:17→16:04)
[2020-09-29] MEDS: Cyanocobalamin (Vitamin B-12) 1,000 MCG TAB PO SCH (08:17)
[2020-09-29] MEDS: Furosemide 20 MG TAB PO SCH (08:18)
[2020-09-29] MEDS: Multivit, Therapeutic 1 TAB PO SCH (08:18)
[2020-09-29] MEDS ORDERED: Furosemide 20 MG TAB PO SCH ×2 (08:26→08:45)
[2020-09-29] MEDS ORDERED: Furosemide 40 MG TAB PO SCH (09:00)
[2020-09-29] MEDS: Cefepime 2 GM in Sodium Chloride 0.9% 100 ML IVPB SCH (12:00)
[2020-09-29] MEDS: predniSONE 20 MG TAB PO SCH (12:00)
[2020-09-29] MEDS: Furosemide 40 MG TAB PO SCH (16:04)
[2020-09-29] MEDS: Saccharomyces boulardii 250 MG CAP PO SCH (20:21)
[2020-09-30] MEDS: Cefepime 2 GM in Sodium Chloride 0.9% 100 ML IVPB SCH ×2 (00:06→11:55)
[2020-09-30] MEDS: Mometasone 200 MCG/Formoterol 5 MCG 120 PUFF INHALER INH SCH (07:18)
[2020-09-30] MEDS: Digoxin 0.125 MG TAB PO SCH (08:03)
[2020-09-30] MEDS: Potassium Chloride 10 MEQ TAB PO SCH ×2 (08:03→16:11)
[2020-09-30] MEDS: Furosemide 40 MG TAB PO SCH ×2 (08:04→14:35)
[2020-09-30] MEDS: Apixaban 5 MG TAB PO SCH (08:04)
[2020-09-30] MEDS: Multivit, Therapeutic 1 TAB PO SCH (08:04)
[2020-09-30] MEDS: Cyanocobalamin (Vitamin B-12) 1,000 MCG TAB PO SCH (08:04)
[2020-09-30] MEDS: AcetaZOLAMIDE 250 MG TAB PO SCH (08:04)
[2020-09-30] MEDS: Folic Acid 1 MG TAB PO SCH (08:04)
[2020-09-30] MEDS: predniSONE 20 MG TAB PO SCH (11:55)
[2020-09-30 15:32] VITALS: BP 112/63; TEMP 97.5
[2020-10-04] MEDS ORDERED: Ergocalciferol 1.25 MG(50,000 UNITS) CAP PO SCH (09:00)
== END 2020-09-30 17:23 | DRG 698 ==
LOC: ERS 14:10 → CCU 15:38 → 2NO 09-21 21:08
PROVIDERS: ADMIT Internal Medicine; ATTEND Internal Medicine
PROC: 3E033XZ Introduction of Vasopressor into Peripheral Vein, Percutaneous Approach (ICD-10-PCS; principal; 2020-09-17)
PROC: 5A09557 Assistance with Respiratory Ventilation, Greater than 96 Consecutive Hours, Continuous Positive Airway Pressure (ICD-10-PCS; 2020-09-17)
PROC: 06HY33Z Insertion of Infusion Device into Lower Vein, Percutaneous Approach (ICD-10-PCS; 2020-09-17)
PROC: 02HV33Z Insertion of Infusion Device into Superior Vena Cava, Percutaneous Approach (ICD-10-PCS; 2020-09-26)
PROC: B548ZZA Ultrasonography of Superior Vena Cava, Guidance (ICD-10-PCS; 2020-09-26)
DX: T83.511A Infection and inflammatory reaction due to indwelling urethral catheter, initial encounter (principal); A41.52 Sepsis due to Pseudomonas; R65.21 Severe sepsis with septic shock; J96.22 Acute and chronic respiratory failure with hypercapnia; J96.21 Acute and chronic respiratory failure with hypoxia; I50.33 Acute on chronic diastolic (congestive) heart failure; J44.1 Chronic obstructive pulmonary disease with (acute) exacerbation; I48.21 Permanent atrial fibrillation; E66.2 Morbid (severe) obesity with alveolar hypoventilation; I42.9 Cardiomyopathy, unspecified; E87.3 Alkalosis; L03.115 Cellulitis of right lower limb; E44.0 Moderate protein-calorie malnutrition; E87.1 Hypo-osmolality and hyponatremia; Z20.822 Contact with and (suspected) exposure to COVID-19; N39.0 Urinary tract infection, site not specified; Y84.6 Urinary catheterization as the cause of abnormal reaction of the patient, or of later complication, without mention of misadventure at the time of the procedure; I07.1 Rheumatic tricuspid insufficiency; I87.8 Other specified disorders of veins; I89.0 Lymphedema, not elsewhere classified; I11.0 Hypertensive heart disease with heart failure; E78.5 Hyperlipidemia, unspecified; I27.20 Pulmonary hypertension, unspecified; I25.10 Atherosclerotic heart disease of native coronary artery without angina pectoris; R33.9 Retention of urine, unspecified; I48.0 Paroxysmal atrial fibrillation; K21.9 Gastro-esophageal reflux disease without esophagitis; I50.814 Right heart failure due to left heart failure; K76.1 Chronic passive congestion of liver; E87.6 Hypokalemia; E55.9 Vitamin D deficiency, unspecified; D53.9 Nutritional anemia, unspecified; Z68.35 Body mass index [BMI] 35.0-35.9, adult; Z99.89 Dependence on other enabling machines and devices; Z88.1 Allergy status to other antibiotic agents; Z88.8 Allergy status to other drugs, medicaments and biological substances; Z79.51 Long term (current) use of inhaled steroids; Z79.01 Long term (current) use of anticoagulants; Z79.52 Long term (current) use of systemic steroids; Z79.899 Other long term (current) drug therapy; Z79.82 Long term (current) use of aspirin; Z90.49 Acquired absence of other specified parts of digestive tract; Z90.710 Acquired absence of both cervix and uterus; Z98.890 Other specified postprocedural states; Z82.49 Family history of ischemic heart disease and other diseases of the circulatory system; Z86.711 Personal history of pulmonary embolism
CPT/HCPCS: 0240U; 36415; 36416; 36556; 36569; 36600; 71045; 80048; 80053; 82306; 82805; 83735; 84100; 84145; 84484; 85007; 85025; 85027; 93005; 93010; 93306; 94660; 96365; 96366; 96375; 99292; C1751; J0692; J1100; J1160; J1644; J1940; J3370; J3420; J3475; J3490; J7512; P9047